=== PATIENT | male | born 1930 | race African-American/Black ===

== ENCOUNTER 2018-12-15 17:50 | Inpatient (IN) ==
[2018-12-15] MEDS ORDERED: VANCOMYCIN 1 GM/NS 1 GM/250 ML IVPB IV ONE (18:15)
--- NOTE | 2018-12-15 18:32 | Diag Imaging Result Doc PS360 ---
EXAM: CHEST-2 VIEWS HISTORY: sob TECHNIQUE: Chest two views COMPARISON: 12/15/2017 FINDINGS: The right hemidiaphragm is elevated similar to the prior exam. Heart is borderline mildly prominent. There is a left-sided pacemaker. There are infiltrates posteriorly in the lower lungs. No pulmonary edema. IMPRESSION: Basilar infiltrates Electronically signed by Quinton Muñoz 12/15/2018 6:30 PM
--- NOTE | 2018-12-15 18:36 | Diag Imaging Result Doc PS360 ---
EXAM: FOOT COMPLETE RIGHT HISTORY: diabetic foot ulcer susp osteomyelitis TECHNIQUE: Right foot, three views COMPARISON: None. FINDINGS: The bones are osteopenic. There are lucent areas with bone erosions in the mid and distal first metatarsal tarsal with cortical disruption. There is also lucency with cortical disruption involving the proximal phalanx of the great toe and the proximal portion of the distal phalanx of the great toe. IMPRESSION: Osteomyelitis involving the first metatarsal and great toe Electronically signed by Quinton Muñoz 12/15/2018 6:34 PM
[2018-12-15 19:44] LABS: BASO# 0.01 X1000 (0.0-0.2); BASO% 0.1 % (0.0-0.8); EOS# 0.19 X1000 (0.0-0.7); EOS% 1.5 % (0.0-10.0); HEMATOCRIT 27.3 % (42.0-52.0); HEMOGLOBIN 8.9 g/dL (14.0-18.0); IMM GRAN# 0.03 X1000 (0.0-0.04); IMM GRAN% 0.2 % (0.0-0.5); LYMPH# 1.05 X1000 (1.2-3.4); LYMPH% 8.1 % (20.5-51.1); MCH 30.1 PG (27-31); MCHC 32.6 g/dL (33-37); MCV 92.2 FL (81-99); MONO% 6.9 % (1.7-9.3); MPV 10.7 FL (7.4-10.4); NEUT# 10.79 X1000 (1.4-6.5); NEUT% 83.2 % (42.2-75.2); PLT 314 X1000 (130-400); RBC 2.96 XMIL (4.7-6.1); RDW 16.9 % (11.5-14.5); WBC 12.97 X1000 (4.8-10.8)
[2018-12-15 19:44] LABS: ALB/GLOB RATIO 0.7; C REACTIVE PROT QUANT 53.16 mg/L (0.00-5.00); CALCIUM 8.5 mg/dL (8.8-10.2); CREATININE 3.7 mg/dL (0.7-1.2); POTASSIUM 4.2 mmol/L (3.5-5.1); TOTAL BILIRUBIN 0.32 mg/dL (0.20-1.00); TOTAL PROTEIN 7.5 g/dL (6.3-8.3)
[2018-12-15] MEDS ORDERED: NORCO-7.5 PO PRN (20:01)
[2018-12-15] MEDS ORDERED: ZOFRAN IV PRN (20:01)
[2018-12-15] MEDS ORDERED: TYLENOL PO PRN (20:01)
[2018-12-15] MEDS ORDERED: ROCEPHIN 1 GM in NS 50 ML IV SCH (20:15)
[2018-12-15] MEDS ORDERED: ZITHROMAX 500 MG/NS 500 MG/250 ML IVPB IV SCH (20:15)
[2018-12-15] MEDS ORDERED: LEVAQUIN 750 MG in NS 150 ML IV SCH (22:00)
--- NOTE | 2018-12-15 22:47 | HISTORY AND PHYSICAL ---
PRIMARY CARE PROVIDER: Dr. Pittman. WIRE TESTER: Dr. Gamal South. ORTHOPEDIC SURGEON: Dr. Bowser. CHIEF COMPLAINT: Right foot wound bleeding. HISTORY OF PRESENT ILLNESS: Mr. Anna is an 88-year-old male who presents to the emergency room with a foul-smelling diabetic wound to the right foot. He has had the wound debrided recently by Dr. Bowser. His gauze was saturated with blood. The patient was sent here by Dr. Pittman related to a 101.1 fever for the past few days to rule out osteomyelitis. An x-ray of his right foot did indeed show osteomyelitis involving the first metatarsal and great toe. He will be admitted to the medical floor for further evaluation and treatment. PAST MEDICAL HISTORY: 1. End-stage renal disease with Saturday, Saturday, Saturday hemodialysis. 2. Coronary artery disease. 3. Hypertension. 4. Diabetes mellitus. 5. Hyperlipidemia. 6. Osteoarthritis. 7. Blindness. 8. Mild cognitive dysfunction. SURGICAL HISTORY: Pacemaker, right upper arm AV graft, cholecystectomy, debridement of right foot ulceration. SOCIAL HISTORY: No tobacco. Quit drinking over 30 years ago. Lives with daughter. Legally blind. Was able to ambulate with a cane prior to issues with right foot. FAMILY HISTORY: Mother had diabetes and breast cancer. ALLERGIES: No known drug allergies. HOME MEDICATIONS: A list of home medications has not been reconciled. Order was placed for nursing to reconcile home medications in the computer. REVIEW OF SYSTEMS: Fourteen point review of systems reviewed with the patient. Pertinent positives include right foot pain, difficulty ambulating, mild shortness of breath, dry cough with no sputum, fever, and chills. Also, diarrhea for the past two days. No nausea or vomiting. No hematemesis, hematochezia, or melena. All other systems reviewed and found to be negative. PHYSICAL EXAMINATION: VITAL SIGNS: Temperature 99, pulse 80, respirations 18, blood pressure 146/52, oxygen saturation 94% on room air. GENERAL: Mr. Anna is an 88-year-old male lying on the ER stretcher. Answers most questions appropriately. Hard of hearing and blind. He is in no acute distress. HEENT: Head is atraumatic, normocephalic. Pupils - left eye has a cloudy appearance and right eye is roughly 3 mm, nonreactive. The patient is able to visualize only shadows. Sclerae anicteric. Conjunctivae pale. Oral mucosa is dry. NECK: Supple. No JVD. No thyromegaly. Trachea is midline. No cervical lymphadenopathy. CARDIAC: S1, S2 appreciated. No murmurs, gallops, rubs. LUNGS: Clear to auscultation bilaterally. Mildly increased work of breathing. No rhonchi, wheezes, or rales. Symmetrical rise and fall with respirations. ABDOMEN: Soft, nondistended, nontender. Bowel sounds present all 4 quadrants, normoactive. No pulsatile mass. No organomegaly. EXTREMITIES: Right upper arm AV fistula. Positive thrill and bruit. Right foot with large foul- smelling ulceration, appears necrotic, involving the right MCP and great toe; brown bone is exposed. NEUROLOGICAL: Alert and oriented to person and place. Disoriented to time. Somewhat oriented to situation. Patient has bilateral blindness. He is hard of hearing. Otherwise, nonfocal examination. GENITOURINARY: No bladder distention. Otherwise, deferred. DIAGNOSTIC DATA: Right foot x-ray shows osteomyelitis of the first metatarsal and great toe. Chest x-ray shows basilar infiltrates. LABORATORY DATA: WBC 12.97, hemoglobin 8.9, hematocrit 27.3, platelet count 314. Sodium 135. Potassium 4.2. Chloride 96. Carbon dioxide 27. BUN 17. Creatinine 3.7. Glucose 219. ASSESSMENT AND PLAN: 1. Right foot osteomyelitis. Will treat with vancomycin and Rocephin. Dr. South will be consulted for dosing of vancomycin with hemodialysis. Blood cultures are pending. Will consult Dr. Bowser to evaluate ulceration. Consult Wound Care for help and recommendations on cleaning wound. [place] one to two 7.5 mg every six hours as needed for pain. 2. Bibasilar pneumonia. Will treat as health care acquired as patient is a dialysis patient. He will be given vancomycin, Levaquin, and Rocephin, renally dosed. Again, blood cultures are pending. Will obtain sputum cultures. DuoNeb treatments. 3. Diabetes mellitus. Finger stick blood sugar with sliding scale insulin. Diabetic diet. 4. End-stage renal disease with Saturday, Saturday, and Saturday hemodialysis. Consult Dr. South. 5. Coronary artery disease with hypertension and hyperlipidemia. Will continue home medications when available. Further recommendations per patient clinical course. Dictated by MEGHAN Cordero for Ezekiel Tolliver MD I have performed a face to face diagnostic evaluation. Labs/ Xrays- reviewed. Exam- chest- rhonchi, Ext- Rt foot wound. A/P Rt foot osteomyelitis, Pneumonia- Admit, would care, , check bld cultures, IV ABX. Dr. Tolliver cc: MEGHAN Cordero MD Dr. Ortega Reginald D. Gladish, MD Joseph R. Dupper, DPM MTDD
[2018-12-15] MEDS: DUONEB (A & A) INH SCH (22:55)
[2018-12-15] MEDS ORDERED: LEVAQUIN 750 MG in NS 150 ML IV ONE (23:00)
[2018-12-15] MEDS: DESYREL PO SCH (23:16)
[2018-12-15] MEDS: HUMALOG SUBQ SCH (23:24)
[2018-12-16 00:38] LABS: HEMATOCRIT 26.4 % (42.0-52.0); HEMOGLOBIN 8.3 g/dL (14.0-18.0)
--- NOTE | 2018-12-16 00:47 | PROVIDER DOCUMENTATION ---
This chart was entered by Sabrina Moseley Scribe, acting as scribe for Damien Govea MD. HPI-Rash/Wound/ReCheck - General Chief Complaint: Wound Recheck Stated Complaint: POST OP COMPLICATIONS Time Seen by Provider: 12/15/18 17:59 Source: patient Allergies/Adverse Reactions: Allergies Allergy/AdvReac Type Severity Reaction Status Date / Time No Known Allergies Allergy Verified 07/03/18 07:05 Home Medications: Home Medication List Medication Instructions Recorded Confirmed Last Taken Type Furosemide 40 mg PO DAILY 02/24/15 07/03/18 07/02/18 History Gabapentin 200 mg PO QHS 02/24/15 07/03/18 07/02/18 History Tamsulosin [Flomax] 0.4 mg PO QHS 02/20/17 07/03/18 07/02/18 History Trazodone [Desyrel] 0.5 tab PO QHS 12/14/17 07/03/18 07/02/18 History Amlodipine Besylate 10 mg PO DAILY 03/27/18 07/03/18 07/02/18 History Insulin Humulin 70/30 [Humulin 12 unit SUBQ HS 03/27/18 07/03/18 07/02/18 History 70/30] SIMVAstatin [Zocor] 20 mg PO QHS 03/27/18 07/03/18 07/02/18 History - History of Present Illness-Dermatology Nature of Presenting Problem: 88 yom presents to er w/co pt has hx of dm and has diabetic foul smelling necrotic would on rt foot. pt went to see dr. parson today and had wound debrided and there is visible, foul smelling tissue and zhou bone. pt was sent here by pcp, dr. pittman, b/c of 101.1 fever for past few days and poss osteomyelitis. pt arrived via ems and has visible blood and dressing around rt foot. Location: reports: feet (rt) Severity: reports: mild Onset/Duration: reports: unsure Timing: reports: still present Review of Systems - Adult - REVIEW OF SYSTEMS - ADULT Constitutional: reports: see HPI, fever (101.1 for few days). denies: chills, fatique, night sweats Eyes: reports: no symptoms reported Ears, Nose, Mouth & Throat: reports: no symptoms reported Cardiovascular: reports: no symptoms reported Respiratory: reports: no symptoms reported Gastrointestinal: reports: no symptoms reported Genitourinary: reports: no symptoms reported Musculoskeletal: reports: see HPI, other (pt has necrotic wound on rt foot.) Integumentary: reports: no symptoms reported Neurological: reports: no symptoms reported Psychiatric: reports: no symptoms reported Endocrine: reports: no symptoms reported Hematologic/Lymphatic: reports: no symptoms reported Allergic/Immunologic: reports: no symptoms reported All Other Systems: Reviewed and Negative Past History - Adult - PAST MEDICAL HISTORY-ADULT Review of Records: reports: Old Records Reviewed, Nursing Assessment Review, Medications Reviewed, Social history reviewed & non-contributory. Major Childhood Illnesses: reports: denies history Cardiovascular: reports: CAD, HTN, hyperlipidemia, pacemaker Respiratory: reports: denies history Gastrointestinal: reports: denies history Obstetrical/Gynecological: reports: denies history Genitourinary: reports: dialysis (Tue,Thur,Sat), ESRD, kidney disease Musculoskeletal: reports: denies history Neurological: reports: TIA Endocrine/Immune: reports: Diabetes Other Conditions: reports: eye problems/injury (blind bilateral eyes due to DM) - PRIOR SURGERIES/PROCEDURES Surgical/Procedure History: reports: pacemaker, indwelling device (dialysis graft) - IMMUNIZATION STATUS Childhood Immunizations: See Nurse Assessment Flu Vaccine: See Nurse Assessment - FAMILY HISTORY Family History: reviewed, not pertinent - SOCIAL HISTORY Smoking: non-smoker Substance Use: none/never Physical Exam-General - PHYSICAL EXAM-ADULT Initial Vital Signs Reviewed: Yes - CONSTITUTIONAL General Appearance: appears well, alert, no apparent distress - EYES Eyes: other (blind bilat eyes from dm). negative: PERRL/EOMI, photophobia, sclera injected, scleral icterus, subconjunctival hemorrhage - HEAD, EARS, NOSE, MOUTH & THROAT HENMT: normocephalic/atraumatic, moist mucous membranes, normal ENT inspection - NECK Neck: non-tender, full range of motion, supple, normal inspection - RESPIRATORY Respiratory: chest non-tender, crackles. negative: lungs clear, normal breath sounds, accessory muscle use - CARDIOVASCULAR Cardiovascular: normal peripheral pulses, regular rate, rhythm - GASTROINTESTINAL (ABDOMEN) Abdominal Exam: normal bowel sounds, non tender, soft - LYMPHATIC Lymphatic: no adenopathy - MUSCULOSKELETAL Back Exam: normal inspection, no CVA tenderness, no vertebral tenderness Extremity: other (rt foot necrotic wound foul smell. large infected diabetic foot ulcer involving MCP and great toe right foot with brown bone exsposed). negative: normal range of motion, non-tender, normal gait, normal inspection Peripheral Pulses: radial (R): 2+, radial (L): 2+ - SKIN Integumentary: normal color, normal turgor, warm/dry - NEUROLOGIC Neurologic: physician obstetrician II-XII nml as tested, grossly normal, no motor/sensory deficits - PSYCHIATRIC Psych/Mental Status: normal mood/affect, normal thought content, normal thought process, oriented x 3 Progress - PLAN OF CARE/RESULTS Progress/Plan/Lab Results: Vital Signs - 8 hr 12/15/18 18:13 Temperature 99.0 F Pulse Rate 80 Respiratory Rate 18 Blood Pressure 146/52 O2 Sat by Pulse Oximetry 94 L Laboratory Results - last 24 hr 12/15/18 12/15/18 12/15/18 18:56 18:56 19:15 WBC 12.97 H RBC 2.96 L Hgb 8.9 L Hct 27.3 L MCV 92.2 MCH 30.1 MCHC 32.6 L RDW Std Deviation 16.9 H Plt Count 314 MPV 10.7 H Immature Gran % (Auto) 0.2 Neut % (Auto) 83.2 H Lymph % (Auto) 8.1 L Pershing % (Auto) 6.9 Eos % (Auto) 1.5 Baso % (Auto) 0.1 Immature Gran # (Auto) 0.03 Neut # (Auto) 10.79 H Lymph # (Auto) 1.05 L Pershing # (Auto) 0.90 H Eos # (Auto) 0.19 Baso # (Auto) 0.01 Sodium 135 L Potassium 4.2 Chloride 96 L Carbon Dioxide 27 Anion Gap 12 BUN 17 Creatinine 3.7 H Estimated GFR/1.73 m2 19 BUN/Creatinine Ratio 5 Glucose 219 H Calculated Osmolality 278 Calcium 8.5 L Total Bilirubin 0.32 AST 28 ALT 17 Alkaline Phosphatase 68 C-Reactive Prot, Quant 53.16 H Total Protein 7.5 Albumin 3.0 L Globulin 4.5 Albumin/Globulin Ratio 0.7 Plasma Lactate 1.1 Orders Category Date Time Status Admit - [facility] Routine AdmDCTranf 12/15/18 20:01 Active Activity - Strict Bedrest ORDERED Care 12/15/18 20:01 Active Apply Mechanical Device [QM] ORDERED Care 12/15/18 20:01 Active FSBS/Accucheck Result Q4HR Care 12/15/18 20:01 Active Intake and Output-Strict ORDERED Care 12/15/18 20:01 Active Nursing- MD Consult Request ROUTINE Care 12/15/18 20:04 Active Update & Confirm Home Medicati ROUTINE Care 12/15/18 20:05 Active Vital Signs Order Q 8-HR ASSESS Care 12/15/18 20:01 Active Z-Document. for Tele Applied ORDERED Care 12/15/18 20:02 Active Physician/Provider Consults Routine Cons 12/16/18 08:00 Ordered Diabetic Diet Diet 12/15/18 20:03 Active CHEST-2 VIEWS [RAD] Stat Exams 12/15/18 18:03 Completed FOOT COMPLETE RIGHT [RAD] Stat Exams 12/15/18 18:08 Completed BASIC METABOLIC PANEL [CHEM] Routine Lab 12/16/18 06:00 Uncollected BLOOD CULTURE [BLDCUL] Stat Lab 12/15/18 19:15 Results C REACTIVE PROT QUANT [CHEM] Stat Lab 12/15/18 18:56 Completed CBC WITH DIFF [HEME] Routine Lab 12/16/18 06:00 Uncollected CBC WITH DIFF [HEME] Stat Lab 12/15/18 19:15 Completed COMPREHENSIVE METABOLIC PANEL [CHEM] Stat Lab 12/15/18 18:56 Completed LACTATE, PLASMA [CHEM] Stat Lab 12/15/18 18:56 Completed MAGNESIUM [CHEM] Routine Lab 12/16/18 06:00 Uncollected TSH Routine Lab 12/16/18 06:00 Uncollected Acetaminophen [Tylenol] Med 12/15/18 20:01 Active 650 mg PO Q6H PRN PRN Azithromycin 500 mg/Ns [Zithromax 500 mg/Ns] Med 12/15/18 20:15 Active 500 mg in 250 ml IV Q24H CefTRIAXONE [Rocephin] 1 gm Med 12/15/18 20:15 Active 0.9% Sodium Chloride Inj [Ns] 50 ml IV Q24H Hydrocodone/APAP 7.5 mg/325 mg [[place]-7.5] Med 12/15/18 20:01 Discontinued 1 - 2 each PO Q6H PRN PRN Hydrocodone/APAP 7.5 mg/325 mg [[place]-7.5] Med 12/15/18 20:08 Active 1 - 2 each PO Q6H PRN PRN Ondansetron [Zofran] Med 12/15/18 20:01 Active 4 mg IV Q4H PRN PRN Vancomycin 1 gm/Ns Med 12/15/18 18:15 Discontinued 1 gm in 250 ml IV NOW Telemetry [OM.EQ] Routine Oth 12/15/18 20:01 Active EKG [EKG] Routine Ther 12/16/18 08:00 Ordered EKG [EKG] Stat Ther 12/15/18 18:03 Ordered Physical Therapy Eval/Treatment [OM.PT] Routine Ther 12/15/18 20:01 Active Transfer/Admit Order [TRANSFER] Routine Transfer 12/15/18 20:07 Ordered A/P: Osteomyelitis involving the first metatarsal and great toe, started vanco mycin and will admit. Informed Dr Pereira od admission. Result Diagrams: 12/15/18 19:15 12/15/18 18:56 - XRAY 1 XRAY: Right XRAY Study: Foot (EXAM: FOOT COMPLETE RIGHT HISTORY: diabetic foot ulcer susp osteomyelitis TECHNIQUE: Right foot, three views COMPARISON: None. FINDINGS: The bones are osteopenic. There are lucent areas with bone erosions in the mid and distal first metatarsal tarsal with cortical disruption. There is also lucency with cortical disruption involving the proximal phalanx of the great toe and the proximal portion of the distal phalanx of the great toe. IMPRESSION: Osteomyelitis involving the first metatarsal and great toe Electronically signed by Quinton Muñoz 12/15/2018 6:34 PM) Impression: Abnormal Comparison with other Films: no prior study 2 XRAY: Bilateral XRAY Study: Chest ( EXAM: CHEST-2 VIEWS HISTORY: sob TECHNIQUE: Chest two views COMPARISON: 12/15/2017 FINDINGS: The right hemidiaphragm is elevated similar to the prior exam. Heart is borderline mildly prominent. There is a left-sided pacemaker. There are infiltrates posteriorly in the lower lungs. No pulmonary edema. IMPRESSION: Basilar infiltrates Electronically signed by Quinton Muñoz 12/15/2018 6:30 PM) Impression: Abnormal Comparison with other Films: changes noted - CONSULTS/PCP/HOSPITALIST Notification #1 *Consult/PCP/Hospitalist*: Dr Pereira Time Discussed: 19:01 Consult Disposition: other (informed Doctor of admission) #2 Consult: Dr Tolliver Time Discussed: 19:30 Consult Disposition: Admit Departure - Departure Date of Disposition Decision: 12/15/18 Time of Disposition Decision: 19:43 DIAGNOSIS: Osteomyelitis Disposition: ADMITTED INPATIENT 09 Certified Medical Emergency: Emergent Condition: Stable Additional Freetext Instructions: We have examined and treated you today on an emergency basis only. This was not a substitute for, or an effort to provide, complete medical care. In most cases, you must let your doctor check you again. Tell your doctor about any new or lasting problems. We cannot recognize and treat all injuries or illnesses in one Emergency Department visit. If you had special tests, such as X-rays or CT scans, will be reviewed by radiologist and will call you if there are any new suggestions Follow up with primary care provider in 1 to 2 days if no improvement. If you do not have a primary care provider, you need to choose one as soon as possible. Take medicines as prescribed. Monitor for any side effects or adverse events from medications. If any side effect, adverse event or rash develops, or if you suspect any other adverse reaction to the medication, then discontinue the medication immediately and contact clinic /PCP or go to the nearest ER. Narcotic meds / sedative meds instruction - patent advised not to drive, operate any machinery or go into water after taking meds as it may impair mental ability to react to the situation in an appropriate manner. Continue other current medicines. Follow up with PCP within 24-48 hours, or sooner if symptoms worsen or fail to improve. Patient / guardian verbalizes understanding of treatment plan, medication, and side effects and agrees with treatment plan. Patient leaves ER in stable condition and ambulatory state. Retu rn to ER as needed. Discharge instructions reviewed verbally and given to patient in written form. Follow up with primary care provider. Referrals and Follow-Ups: Gordo Pittman MD [Primary Care Provider] - - Critical Care Note This patient required my direct & personal management of CC.: No Attestation - Physician/ DENICE Attestation Patient care was provided by Advanced Practice Provider:: No The physician spent face to face time with patient:: Yes Advanced Practice Provider documentation review:: Supervising physician onsite and consulted in the evaluation and care of this patient. The physician did have a face to face encounter with the patient. This chart was documented by the indicated scribe, (Sabrina Moseley, Judd) and accurately reflects the services I performed and decisions made by , Damien Govea MD, as attested by the provider's signature.
[2018-12-16] MEDS: HUMALOG SUBQ SCH ×4 (02:15→23:15)
[2018-12-16] MEDS: DUONEB (A & A) INH SCH ×4 (03:51→23:35)
[2018-12-16] MEDS ORDERED: VANCOMYCIN 1 GM/NS 1 GM/250 ML IVPB IV SCH (06:00)
[2018-12-16 07:13] LABS: BASO# 0.02 X1000 (0.0-0.2); BASO% 0.2 % (0.0-0.8); EOS# 0.13 X1000 (0.0-0.7); EOS% 1.1 % (0.0-10.0); HEMATOCRIT 24.6 % (42.0-52.0); HEMOGLOBIN 7.7 g/dL (14.0-18.0); IMM GRAN# 0.02 X1000 (0.0-0.04); IMM GRAN% 0.2 % (0.0-0.5); LYMPH# 1.27 X1000 (1.2-3.4); LYMPH% 10.8 % (20.5-51.1); MCH 29.1 PG (27-31); MCHC 31.3 g/dL (33-37); MCV 92.8 FL (81-99); MONO# 0.65 X1000 (0.11-0.59); MONO% 5.5 % (1.7-9.3); MPV 9.9 FL (7.4-10.4); NEUT# 9.69 X1000 (1.4-6.5); NEUT% 82.2 % (42.2-75.2); PLT 284 X1000 (130-400); RBC 2.65 XMIL (4.7-6.1); RDW 16.5 % (11.5-14.5); WBC 11.78 X1000 (4.8-10.8)
--- NOTE | 2018-12-16 07:23 | EKG Report ---
Test Performed on : 12/16/2018 07:13:10 AM Test Reason : chest pain Blood Pressure : / mmHG Vent. Rate : 075 BPM Atrial Rate : 075 BPM P-R Int : 224 ms QRS Dur : 188 ms QT Int : 458 ms P-R-T Axes : 062 -40 122 degrees QTc Int : 511 ms Atrial-sensed ventricular-paced rhythm with prolonged AV conduction Abnormal ECG When compared with ECG of 18-DEC-2017 06:50, Vent. rate has increased BY 6 BPM Unconfirmed Result
[2018-12-16 07:26] LABS: CALCIUM 8.8 mg/dL (8.8-10.2); CREATININE 4.2 mg/dL (0.7-1.2); MAGNESIUM 1.8 mg/dL (1.5-2.7); POTASSIUM 3.8 mmol/L (3.5-5.1)
--- NOTE | 2018-12-16 10:02 | NEPHROLOGY CONSULTATION ---
DATE: 12/16/2018 REASON FOR ADMISSION: Right foot wound that is bleeding. REASON FOR CONSULTATION: End-stage renal disease with assistance with medical management. HISTORY OF PRESENT ILLNESS: Mr. Anna is an 88-year-old male who is known to our outpatient services for hemodialysis on Saturday, Saturday, Saturday at the [facility]. Mr. Anna had recently seen Dr. Bowser earlier in the day for evaluation of his nonhealing right foot wound. It had been debrided recently. Family had made an appointment for him to follow up with his primary care, Dr. Pittman. It was found that he had 101.1 degree fever in the past several days. He was sent to [facility] with a foul smelling diabetic wound to the right foot to rule out osteomyelitis. X-ray of the right foot showed osteomyelitis involving the 1st metatarsal and great toe. He was subsequently admitted to the floor for further monitoring and evaluation by the surgery care team. The patient denies any chest pain. No increased work of breathing. No nausea, vomiting. No diarrhea. No fever or chills that he is aware of, though it is documented a fever 101 degrees by his primary care. He denies any recent falls or any foot injuries that he is aware of. The patient is legally blind, cared for by his son and daughter. PAST MEDICAL HISTORY: End-stage renal disease with hemodialysis Saturday, Saturday, Saturday. Coronary artery disease, hypertension, diabetes mellitus type 2, hyperlipidemia, osteoarthritis, mild cognitive dysfunction and blindness. PAST SURGICAL HISTORY: He has had a pacemaker, right upper arm AV fistula, cholecystectomy, debridement of right foot with ulceration. SOCIAL HISTORY: He lives with his daughter. His son assists with his care. No tobacco. Quit drinking over 30 years ago. The patient is legally blind. He is unable to ambulate well without cane. Otherwise, he has been using a wheelchair but is able to transfer. FAMILY HISTORY: Mother had diabetes and breast cancer. CURRENT ALLERGIES: Listed as no known drug allergies. HOME MEDICATIONS: Have yet to be reconciled. OBJECTIVE: RECENT VITAL SIGNS: Temperature 98.8 degrees, blood pressure 137/49, heart rate 75, respirations 14. He is on room air. Last recorded saturation is 95%. He has had 0 recorded in or out. He did have dialysis yesterday before coming in through the emergency room. LABORATORY DATA: Sodium is 137, potassium 3.8, chloride 99, CO2 25, BUN 22, creatinine 4.2, glucose is 127. His anion gap is 13, calcium is 8.8, magnesium 1.8. White count 11.78, hemoglobin 7.7, hematocrit 24.6, with a platelet count of 284,000. The patient had a TSH of 1.85. PHYSICAL EXAMINATION: General: This is an 88-year-old male resting quietly in bed. He has his glasses on. He appears chronically ill. No acute distress. Skin: Warm and dry. HEENT: Normocephalic, atraumatic. Conjunctiva was not inspected. Glasses remain on. Patient is legally blind. Neck: Supple. Trachea midline. No JVD. Cardiovascular: Regular rate and rhythm. He has a soft systolic murmur. Lungs: Clear to auscultation bilaterally. Equal excursion on room air. Abdomen: Soft, large, round, nontender. Positive bowel sounds. Genitourinary: Not inspected. Minimal void with dialysis assist. Extremities: Patient has socks currently on with a dressing to his right foot. This is dry and intact. No shadow drainage present. AV fistula to his right upper arm with good thrill. Neurological: He is alert and oriented to person and to place. ASSESSMENT AND PLAN: 1. Chronic kidney disease stage 5D. Patient is due for his routine dialysis treatment in the a.m. He did receive his treatment yesterday prior to coming into the hospital. 2. Electrolytes and acid-base balance. These are acceptable. 3. Anemia. This is low. Hemoglobin is 7.7. We will continue to monitor. We will defer to the primary care team for monitoring when indicated for blood transfusion during this hospitalization. 4. Osteomyelitis to the right foot. This is to his right large metatarsal. He has a dressing that is dry and intact. The patient is currently on Levaquin and Ceftin. I would like to thank you for allowing us to follow with this patient. Dictated by MEGHAN Araujo for Gamal South MD Face to face encounter, data reviewed, discussed with Marla Yates on 12/16/18. I agree with the above assessment and plan of care. cc: Ann-Marie MEGHAN White MD [facility]
--- NOTE | 2018-12-16 12:49 | CONSULTATION ---
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 We saw him in the [facility] yesterday and did a debridement, and apparently when he went home, he got up to go the bathroom, and it started bleeding a fair amount, so they brought him to the emergency room. Emergency room doctors admitted him for osteomyelitis. OBJECTIVE: I am not able to log into the computer, so I am not able to get any of his labs or any information, but the foot dressing is intact. There is no active bleeding at this point. The foot is consistent with what we saw yesterday, a large deficit on the medial aspect of the 1st metatarsophalangeal joint with an exposed 1st metatarsal head and base of the proximal phalanx. You could see directly into the 1st metatarsophalangeal joint. There is a fair amount of nonviable grayish tissue on the periphery of the wounds. There is no obvious pus or any significant erythema or swelling or warmth or evidence of deep abscess. ASSESSMENT AND PLAN: Nonhealing wound with first metatarsophalangeal (MPJ), right, with underlying osteomyelitis that needs and has been needing an amputation and I D for several weeks. The problem we have been running into his daughter has a power of criminal defense attorney, and she continues to tell me every time I talk to her that she is going to get her brothers to consider what he needs to do and possibly get a second opinion before they want to proceed with any kind of procedure. I told her today in our phone conversation that it is time to make a decision by the end today. They need to decide what they want to allow us to do and who they want to do it. It sounds like perhaps maybe they want either a second opinion or a different surgeon to do his surgery, which I told him and her and the nurses is fine with me. It does not matter who does it, but someone needs to intervene surgically at this point because the foot is never going to heal in the condition that it is in, and she has been seemingly understanding this for weeks, but still as yet to render a decision on how we could proceed at this point, so I talked all of the nurses taking care of him, and we are going to try to expedite the process of getting a decision made by the end of the day. cc: Deacon Bowser DPM
--- NOTE | 2018-12-16 16:59 | PROGRESS NOTE ---
DATE: 12/16/2018 SUBJECTIVE: The patient is resting comfortably in bed. No acute events noted overnight. OBJECTIVE: Vital Signs: Temperature 97.6 degrees, blood pressure 143/45, heart rate 70, respirations 18, O2 saturation 95% on room air. General: This is a chronically ill-appearing elderly male lying in bed in no acute distress. Head: Normocephalic, atraumatic. Heart: S1, S2 normal. Regular rate and rhythm. Lungs: Equal air entry bilaterally. No wheezing. No rales. No rhonchi. Abdomen: Positive bowel sounds. Soft, nontender, nondistended. Extremities: No edema. The right foot has serosanguineous drainage and there is a dressing in place on the foot. LABS: White blood cell count 11, hemoglobin 7.7, hematocrit 24, platelets 284,000. BUN 22, creatinine 4.2, glucose 127, magnesium 1.8, calcium 8.8. ASSESSMENT AND PLAN: 1. Right great toe osteomyelitis. The patient is currently receiving intravenous antibiotics. Will consult ID as well as Orthopedic Surgery for further treatment recommendations. 2. Bibasilar infiltrates. We will check a procalcitonin level. In the meantime, continue with antibiotic therapy. 3. End-stage renal disease. Management as per the dice maker. 4. Anemia. Will monitor the hemoglobin and hematocrit closely. We will order iron studies. 5. Leukocytosis. Improved. Continue with antibiotic therapy. 6. Diabetes mellitus type 2. Continue with sliding scale insulin. 7. Deep vein thrombosis prophylaxis. Will start the patient on heparin. cc: Bonnie Bowens MD MTDD
[2018-12-16] MEDS ORDERED: MAXIPIME 1 GM in NS 50 ML IV SCH (17:15)
[2018-12-16] MEDS ORDERED: CUBICIN 500 MG in NS 100 ML IV SCH (17:30)
[2018-12-16] MEDS: ZYVOX PO SCH (18:20)
--- NOTE | 2018-12-16 18:27 | CONSULTATION ---
DATE OF CONSULTATION: 12/16/2018 CHIEF COMPLAINT: Right great toe wound. HISTORY OF PRESENT ILLNESS: Mr. Anna is an 88-year-old male who was admitted to the hospital for suspected osteomyelitis first metatarsal. He is also on dialysis and is diabetic. He has been seeing Dr. Bowser for wound care of this first metatarsal wound and unfortunately, it sounds like things have just not healed well and his wound has continued to progress. He is having pain mainly just at that first MTP joint. It sounds like the wound has gotten worse over the past few weeks. PAST MEDICAL HISTORY: End-stage renal disease, he is on dialysis Mondays, Wednesdays, Fridays, coronary artery disease, hypertension, diabetes, and blindness. PAST SURGICAL HISTORY: He has a pacemaker, right upper extremity AV graft, cholecystectomy, several debridements of his foot but I think all of those were in the office setting. SOCIAL HISTORY: He denies any tobacco use. FAMILY HISTORY: Positive for diabetes. ALLERGIES: No known drug allergies. HOME MEDICATIONS: Per the medical record. REVIEW OF SYSTEMS: Positive for this right diabetic foot ulcer. PHYSICAL EXAMINATION: General: Slightly cachectic-appearing, elderly male. He is in no acute distress. Head and Neck: Normocephalic, atraumatic. Respirations: Nonlabored breathing. Cardiovascular: Regular pulse. Abdomen: Nondistended. Extremities: Right lower extremity exam: He has an open wound over the first metatarsal head medially. It is draining. It looks like more serous drainage and it does appear that bone was exposed. He does have some swelling throughout that first ray. There is not a lot of surrounding erythema that I can tell. He has decreased sensation throughout the toes. RADIOGRAPHS: Several views of the right foot from the hospital shows what looks like a lot of erosive changes to the distal phalanx, proximal phalanx, and the first metatarsal of that great toe. ASSESSMENT: Suspected right great toe osteomyelitis. PLAN: I am going to order a CT scan Mr. Anna to better evaluate the bone. If it does look like it is osteomyelitic and very erosive, then we will probably recommend a first ray amputation. CT will also help show the proximal extent of it. We may have to take the entire first metatarsal out. So, I will order the CT scan. I will see him first thing in the morning and we will make a final decision on everything at that time. cc: Carlos Maradiaga MD
--- NOTE | 2018-12-16 19:14 | INFECTIOUS DISEASE CONSULT REP ---
DATE: 12/16/2018 CONCLUSION: The patient has osteomyelitis of the right foot. He also has a positive blood culture for gram-positive cocci, and the infection may have arisen from the patient's foot. In addition to that, on chest x-ray, the patient has bibasilar infiltrates which could be due to pneumonia, and that could be the source of the patient's bacteremia as well. RECOMMENDATIONS: I have ordered for the patient cefepime 1 g IV after each dialysis, daptomycin 500 mg IV after each dialysis, and Zyvox 600 mg p.o. every 12 hours. The cefepime is present in case a culture from the patient's foot should show a mixed claire that requires coverage for gram- negative richmond organisms. As regarding the use of linezolid and daptomycin in this patient, he is elderly and somewhat unstable when he walks, and because of that, I am hesitant to use vancomycin. Therefore, I have put the patient on daptomycin which should eradicate the bacteremia. However, daptomycin does not get a good concentration in the lungs, and therefore, I have started the patient on Zyvox to provide coverage for pneumonia due to a gram-positive coccus. I am going to discontinue the patient's Zocor because it can interact with daptomycin and increase the risk of muscle toxicity. DISCUSSION: The patient was unable provide a history. The information I obtained was from a family member. The patient had infection in his right foot for approximately 2 months. He has had debridements performed of the foot. He has been admitted now to the hospital for further treatment. The patient's CBC shows a white count of 11,780, hemoglobin 7.7, and platelet count 284,000. Creatinine is 4.2. GFR is 16. Chest x-ray shows bibasilar infiltrates. X-ray of the right foot shows osteomyelitis of the 1st metatarsal and great toe. Yesterday, the patient received injections of vancomycin, Rocephin, and Levaquin. PAST MEDICAL HISTORY/REVIEW OF SYSTEMS: Eyes and ears: The patient is blind. He can hear. Sometimes he is ataxic. Neck: No pain. Respiratory: No cough or shortness of breath. Cardiac: No chest pain. Gastrointestinal: No diarrhea or vomiting. Genitourinary: The patient only passes a minimal amount of urine. He is on dialysis. Neurologic: The patient is blind, and he sometimes is ataxic. He has a diagnosis of dementia as well. PREVIOUS HOSPITALIZATIONS AND OPERATIONS: The patient has had a stroke. He has had creation of a right upper extremity AV fistula. He has a left-sided permanent pacemaker in place. MEDICAL DISEASES: Positive for diabetes mellitus, hypertension, stroke, cancer of the kidney, and dementia, also hyperlipidemia. The patient also has end-stage renal disease and is on dialysis. INFECTIOUS DISEASE: History positive for influenza and UTI. FAMILY HISTORY: Positive for diabetes mellitus and hypertension. SOCIAL HISTORY: [place] with [place] son and daughter. He is a . He does not have any pets at home. ALLERGIES: He has no known drug allergies. HABITS: He does not smoke cigarettes, drink alcoholic beverages, or abuse drugs. MEDICATIONS: His home medications include the following: Amlodipine, furosemide, gabapentin, insulin, simvastatin, Flomax, and Desyrel. PHYSICAL EXAMINATION: Vital Signs: Temperature is 97.6 degrees, pulse 70, respirations 20, blood pressure 143/45. The patient is 5 feet 11 inches tall. His first weight listed on the computer is 126 pounds. However, I asked him to be weighed again on the bed, and this time, he weighed 135 pounds. Head, eyes, ears, nose, and throat: The patient is edentulous. He is blind. He appears to be able to hear my spoken word. Neck: No pain with movement. Extremities: The patient has an AV fistula in the left arm. There is no drainage coming from the arm. Lungs: Clear to auscultation. Cardiovascular: Heart rate is irregular. Abdomen: Soft and nontender. Extremities: The patient has an AV fistula in the left arm that is functioning well. The patient has an open wound on the right foot, and I can palpate bone at that time. There is ulcerated area through which I palpated bone. The patient's great toe is swollen. Neurologic: The patient is somewhat lethargic. He did answer questions, and he did move his extremities to request. Integument: No rash noted. Thank you for the consult. cc: Rao Escobar MD
[2018-12-16] MEDS: DESYREL PO SCH (20:25)
[2018-12-16] MEDS: NORCO-7.5 PO PRN (20:26)
[2018-12-16] MEDS: HEPARIN SUBQ SCH (20:28)
--- NOTE | 2018-12-16 20:56 | Diag Imaging Result Doc PS360 ---
EXAM: CT EXT LOWER RIGHT W/O CON INDICATION: right great toe osteomyelitis TECHNIQUE: COMPARISON: None. FINDINGS: There is a large ulceration at the medial aspect of the great toe base. There are extensive bony erosive changes involving the first metatarsal head, the proximal phalanx, and the distal phalanx of the great toe consistent with osteomyelitis. There is also a small erosion involving the adjacent second metatarsal head that is suspicious for osteomyelitis. There are intertarsal degenerative changes and degenerative changes at the talofibular joint with several small degenerative subcortical defects. No fracture or dislocation is appreciated. IMPRESSION: Osteomyelitis involving the phalanges of the great toe as well as the head of the first metatarsal and findings suspicious for osteomyelitis involving the head of the second metatarsal. Electronically signed by Dionicio Moseley 12/16/2018 8:53 PM
[2018-12-17] MEDS: DUONEB (A & A) INH SCH ×4 (03:10→22:21)
[2018-12-17] MEDS: ZYVOX PO SCH ×2 (05:47→20:36)
[2018-12-17] MEDS ORDERED: NS 2,000 ML MISC PRN (05:58)
[2018-12-17] MEDS ORDERED: TIGHT: 0.2 ML/HR FOR DIALYSIS MISC PRN (05:58)
[2018-12-17] MEDS ORDERED: HEPARIN IV PRN (05:58)
[2018-12-17] MEDS: HUMALOG SUBQ SCH ×4 (05:59→21:46)
--- NOTE | 2018-12-17 07:20 | Diag Imaging Result Doc PS360 ---
EXAM: CHEST-PORTABLE INDICATION: pneumonia TECHNIQUE: One view COMPARISON: 12/15/2018 FINDINGS: Mild infiltrate at the right lung base has probably improved. Atelectasis and/or infiltrate at the left lung base is approximately stable. No new consolidation is identified. Central vasculature is mildly prominent suggesting mild pulmonary venous congestion that is essentially stable. Cardiac silhouette is stable. IMPRESSION: Slight decrease in the very mild infiltrate at the right lung base. Essentially stable chest, otherwise. Electronically signed by Dionicio Moseley 12/17/2018 7:18 AM
[2018-12-17 07:54] LABS: RETIC% 1.1 % (0.8-2.1); RETIC-HE 31.4 PG (28.2-36.6)
[2018-12-17 07:57] LABS: BASO# 0.02 X1000 (0.0-0.2); BASO% 0.2 % (0.0-0.8); EOS# 0.31 X1000 (0.0-0.7); EOS% 2.9 % (0.0-10.0); HEMATOCRIT 22.7 % (42.0-52.0); HEMOGLOBIN 7.3 g/dL (14.0-18.0); IMM GRAN# 0.03 X1000 (0.0-0.04); IMM GRAN% 0.3 % (0.0-0.5); LYMPH# 1.22 X1000 (1.2-3.4); LYMPH% 11.4 % (20.5-51.1); MCH 29.3 PG (27-31); MCHC 32.2 g/dL (33-37); MCV 91.2 FL (81-99); MONO# 0.69 X1000 (0.11-0.59); MONO% 6.5 % (1.7-9.3); MPV 10.5 FL (7.4-10.4); NEUT% 78.7 % (42.2-75.2); PLT 288 X1000 (130-400); RBC 2.49 XMIL (4.7-6.1); RDW 16.3 % (11.5-14.5); WBC 10.67 X1000 (4.8-10.8)
--- NOTE | 2018-12-17 08:06 | PROGRESS NOTE ---
DATE: 12/17/2018 SUBJECTIVE: Mr. Anna is lying in bed this morning. Overall, feeling okay. OBJECTIVE: Right lower extremity exam: Dressing is clean, dry, and intact. There was not really any erythema coming up the foot. IMAGING: CT scan was reviewed, which shows air in the first metatarsal head, exposed bone and a lot of destruction of the proximal and distal phalanges of the great toe. ASSESSMENT: Right osteomyelitis of the first metatarsal, the great toe proximal phalanx and the great toe distal phalanx. PLAN: I discussed with Mr. Anna this morning about the need for surgical intervention. I would recommend amputation of that great toe. We may be able to keep the base of the toe depending on when we get in there and we cut the bone and really evaluate it. It looks like more of the infection is distal in the first metatarsal. I would plan on taking that toe off and closing the skin primarily to try to get a good closure so that we eliminate the wound altogether. I went over with him the need for this. I will also talk with his daughter today, which I got his permission to do that about his care. We will plan on doing this tomorrow, so he will be n.p.o. after midnight tonight. He will have dialysis today, so he should be good from an electrolyte standpoint for surgical intervention tomorrow. cc: Carlos Maradiaga MD
[2018-12-17 08:08] LABS: ALBUMIN 2.7 g/dL (3.5-5.0); PHOSPHORUS 3.3 mg/dL (2.7-4.5); POTASSIUM 3.6 mmol/L (3.5-5.1)
[2018-12-17 08:09] LABS: CREATININE 5.3 mg/dL (0.7-1.2)
--- NOTE | 2018-12-17 08:22 | NEPHROLOGY PROGRESS NOTE ---
DATE: 12/17/2018 SUBJECTIVE: No shortness of breath. He states he has been eating. No nausea or vomiting. OBJECTIVE: Vital signs: Blood pressure 150/46, heart rate 71, respirations 16, afebrile. Generally: No acute distress. Skin: Warm and dry. Conjunctivae are pink. Neck: Neck veins are not appreciated. Cardiovascular: Heart is regular. No gallops. Respiratory: Lungs are equal. No crackles. Abdomen: Soft, nontender. Bowel sounds present. Extremities: Have no edema, clubbing, or cyanosis. Right foot dressed. IMPRESSION AND PLAN: Chronic kidney disease 5D. No new data. Today is his routine dialysis today. We will plan to dialyze using a 3 potassium bath and we will use his outpatient target weight. His hemoglobin is 7.3 today so we will give him a single unit of packed red blood cells during dialysis. cc: Gamal South MD
[2018-12-17 08:38] LABS: IRON SATURATION 18 %; TIBC 105 ug/dL; TOTAL IRON 19 ug/dL (53-167); UNBOUND IRON 86 ug/dL (112-346)
[2018-12-17] MEDS: HEPARIN SUBQ SCH (10:05)
--- NOTE | 2018-12-17 11:11 | PROGRESS NOTE ---
DATE: 12/17/2018 SUBJECTIVE: The patient is resting comfortably in bed. He has no complaints at this time. OBJECTIVE: Vital Signs: Temperature 98 degrees, blood pressure 150/46, heart rate 71, respirations 16, O2 saturation 94% on room air. General: This is an elderly male lying in bed in no acute distress. Heart: S1, S2 normal. Regular rate and rhythm. Lungs: Coarse breath sounds bilaterally. Abdomen: Positive bowel sounds. Soft, nontender, nondistended. Extremities: No edema noted. The patient's right foot is wrapped in a clean, dry dressing. LABORATORIES: White blood cell count 10, hemoglobin 7.3, hematocrit 22, platelets 288,000. Sodium 137, potassium 3.6, chloride 101, CO2 25, BUN 30, creatinine 5.3, glucose 120. IMAGING: Chest x-ray reveals some mild infiltrate in the right lung base. ASSESSMENT AND PLAN: 1. Right great toe osteomyelitis. The patient is scheduled to undergo surgery tomorrow. Continue with antibiotic therapy as directed by Dr. Escobar. 2. Pneumonia. Continue with antibiotic therapy. 3. End stage renal disease. The patient is due for dialysis today. 4. Diabetes mellitus type 2, poorly controlled. Continue on Humalog, sliding scale. 5. Anemia. The patient is scheduled to receive a blood transfusion today during dialysis. cc: Bonnie Bowens MD MTDD
[2018-12-17] MEDS ORDERED: MAXIPIME 1 GM in NS 50 ML IV ONE (16:00)
[2018-12-17] MEDS ORDERED: CUBICIN 500 MG in NS 100 ML IV ONE (17:00)
[2018-12-17] MEDS: NORCO-7.5 PO PRN (17:45)
[2018-12-17] MEDS: DESYREL PO SCH (20:33)
[2018-12-17] MEDS ORDERED: LEVAQUIN 500 MG in NS 100 ML IV SCH (23:00)
[2018-12-18] MEDS: DUONEB (A & A) INH SCH ×4 (03:03→21:50)
[2018-12-18] MEDS: HUMALOG SUBQ SCH ×4 (06:14→22:55)
[2018-12-18 07:34] LABS: BASO# 0.02 X1000 (0.0-0.2); BASO% 0.2 % (0.0-0.8); EOS# 0.15 X1000 (0.0-0.7); EOS% 1.3 % (0.0-10.0); HEMATOCRIT 27.8 % (42.0-52.0); HEMOGLOBIN 8.7 g/dL (14.0-18.0); IMM GRAN# 0.02 X1000 (0.0-0.04); IMM GRAN% 0.2 % (0.0-0.5); LYMPH# 1.09 X1000 (1.2-3.4); LYMPH% 9.3 % (20.5-51.1); MCHC 31.3 g/dL (33-37); MCV 92.7 FL (81-99); MONO# 0.58 X1000 (0.11-0.59); MPV 9.7 FL (7.4-10.4); NEUT# 9.83 X1000 (1.4-6.5); PLT 319 X1000 (130-400); RDW 16.1 % (11.5-14.5); WBC 11.69 X1000 (4.8-10.8)
[2018-12-18 07:42] LABS: ALBUMIN 2.7 g/dL (3.5-5.0); CALCIUM 8.4 mg/dL (8.8-10.2); CREATININE 3.7 mg/dL (0.7-1.2); PHOSPHORUS 2.7 mg/dL (2.7-4.5); POTASSIUM 3.4 mmol/L (3.5-5.1)
--- NOTE | 2018-12-18 09:17 | PROGRESS NOTE ---
DATE: 12/18/2018 SUBJECTIVE DATA: Mr. Anna is lying in bed. His daughter is at the bedside. OBJECTIVE DATA: Right lower extremity exam, the dressing is clean, dry, and intact. There is not a lot of erythema to the foot. ASSESSMENT: Right osteomyelitis 1st metatarsal, great toe proximal phalanx and the great toe distal phalanx. PLAN: We are planning for a right great toe amputation today. The patient's daughter is at the bedside. Dr. Maradiaga has discussed risks and benefits with both the patient and the patient's daughter. They both understand and are aware. They wished to proceed with surgery. He is on the schedule for today. We will plan on doing him as soon as possible. He has been NPO since midnight. He also had dialysis yesterday, so he should hopefully be ready for surgical intervention today. Dictated by MEGHAN Chin for Carlos Maradiaga MD cc: MEGHNA Chin MD
[2018-12-18] MEDS: ZYVOX PO SCH ×2 (09:34→20:51)
--- NOTE | 2018-12-18 13:59 | PROGRESS NOTE ---
DATE: 12/18/2018 SUBJECTIVE: The patient is resting comfortably in bed. He is scheduled to undergo surgery today. OBJECTIVE: Vital Signs: Temperature 98 degrees, blood pressure 150/43, heart rate 81, respirations 20, O2 saturation 99% on room air. General: This is a chronically ill-appearing elderly male, lying comfortably in bed, in no acute distress. Heart: S1, S2 normal. Regular rate and rhythm. Lungs: Clear to auscultation bilaterally. Abdomen: Positive bowel sounds. Soft, nontender, nondistended. Extremities: The right foot is wrapped in a clean, dry dressing. Neurologic: The patient is alert and oriented x3. LABORATORY DATA: White blood cell count 11, hemoglobin 8.7, hematocrit 27, platelets 319,000. Sodium 136, potassium 3.4, chloride 95, CO2 24, BUN 16, creatinine 3.7, glucose 104, albumin 2.7. ASSESSMENT AND PLAN: 1. Right great toe osteomyelitis. The patient is scheduled to undergo surgery today. Continue with antibiotic therapy. 2. Pneumonia. Continue with antibiotic therapy and bronchodilator therapy. 3. Diabetes mellitus type 2. Continue with Humalog and sliding scale insulin. 4. End-stage renal disease. Management as per the pit worker power shovel. 5. Anemia. Monitor the hemoglobin and hematocrit closely. cc: Bonnie Bowens MD MTDD
[2018-12-18] MEDS ORDERED: DIPRIVAN 1% ONE (16:59)
[2018-12-18] MEDS ORDERED: XYLOCAINE-MPF 2% ONE (16:59)
[2018-12-18] MEDS ORDERED: KEFZOL 1 GM/D5W 1 GM/50 ML IVPB IV SCH (17:00)
--- NOTE | 2018-12-18 17:24 | NEPHROLOGY PROGRESS NOTE ---
DATE: 12/18/2018 TIME SEEN: 08 SUBJECTIVE: Mr. Anna is resting quietly in bed. His family is all at his bedside, his daughter and his son and his sitter. They are waiting for Dr. Maradiaga to discuss his right foot wound. He denies any discomfort. OBJECTIVE: Vital Signs: Temperature 98.9 degrees, blood pressure 159/42, heart rate 90, respirations are 12. He is on room air. Last recorded saturation 96%. He has had 350 in, 3 L removed on dialysis yesterday. Labs: Sodium 136, potassium 3.4, chloride 95, CO2 24, BUN 16, creatinine 3.7, glucose 104. His anion gap is 17, calcium 8.4, phosphorus 2.9, albumin 2.7. White count 11.69, hemoglobin 8.7, hematocrit 27.8, platelet count 319,000. The patient's right foot has grown gram-negative rods Citrobacter koseri with sensitivity pending. PHYSICAL EXAMINATION: General: This is an 88-year-old male resting quietly in bed. He appears chronically ill. No acute distress. Skin: Warm and dry. HEENT: Normocephalic, atraumatic. Conjunctiva is pale. He is legally blind. 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 Mucous membranes are dry. Neck: Supple. Trachea midline. No JVD. Cardiovascular: Regular rate and rhythm. He has a soft systolic murmur. Lungs: Clear to auscultation bilaterally. Equal excursion. He is on room air. Abdomen: Soft, nontender. Positive bowel sounds. Genitourinary: Not inspected. Minimal void with dialysis assist. Extremities: Patient continues to have dressing to his right foot. No shadow drainage noted. No odor present on inspection. Neurological: He is alert and oriented to person and to place. ASSESSMENT AND PLAN: 1. Chronic kidney disease stage 5D. The patient is due for his routine dialysis treatment in the a.m. No indications for intervention today. 2. Electrolytes, acid-base balance. These are acceptable. 3. Anemia. This remains low but stable. Hemoglobin of 8.7 today. He had received 1 unit of packed red blood cells. 4. Wound to right foot. This is currently being evaluated by Dr. Maradiaga for possible discussion of right great toe amputation. I would like to thank you for allowing us to follow with this patient. Dictated by MEGHAN Araujo for Gamal South MD Face to face encounter, data reviewed, discussed with Marla Yates on 12/19/18. I agree with the above assessment and plan of care. cc: MEGHAN Araujo MD [facility]
[2018-12-18] MEDS ORDERED: AMIDATE ONE (17:55)
[2018-12-18] MEDS: DILAUDID ONE ×2 (18:50→18:53)
[2018-12-18] MEDS: DESYREL PO SCH (20:51)
[2018-12-18] MEDS: NORCO-7.5 PO PRN (20:51)
--- NOTE | 2018-12-18 21:10 | OPERATIVE NOTE ---
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 PROCEDURE: Right first ray amputation through the metatarsal. SURGEON: Carlos Maradiaga MD GREETING CARD EDITOR: MEGHAN Chin, who was an integral part of the case helping with all aspects of the case, helping to increase our OR efficiency greatly. ANESTHESIA: General with LMA. IMPLANTS: None. DISPOSITION: To PACU, hemodynamically stable. INDICATION FOR PROCEDURE: Mr. Anna is an 88-year-old male who had this wound on his first metatarsal. CT showed air in the metatarsal head and a lot of erosion of the metatarsal distally in the proximal phalanx and the distal phalanx of the great toe. I discussed with him about ray amputation. He expressed understanding and wished to proceed. DESCRIPTION OF THE PROCEDURE: Mr. Anna was identified in the preoperative holding area. He was then wheeled to the operating room, placed supine on the operating table. All bony prominences were well padded. He was induced under general anesthesia. LMA was placed. Right lower extremity was then prepped with Betadine and Betadine solution and draped in normal sterile fashion. Surgical pause was performed. We identified the correct patient, correct side, and the correct procedure. Preoperative antibiotics were given. He already had a wound about 3 cm in diameter over the medial aspect of his first MTP joint. First used a knife and went down to bone and amputated the great toe through the MTP joint and got it out. I cultured the purulence that was there. I then made a longitudinal incision of the first metatarsal medially. I made a cut in that metatarsal, and it still looked like the tissue was not great so I came back at little bit more proximal and made another cut of the metatarsal and that tissue actually looked really good. Unfortunately, a lot of the soft tissue looked infected as well. We excisionally debrided all the necrotic looking tissue. I got all the way to the capsule of the second MTP joint, but we did not go into the capsule. I did not see the actual bone, but we were right there on it. After we performed an extremely thorough debridement with a scalpel, curette and rongeur, we then irrigated everything copiously with normal saline. Actually the tissues all looked pretty good after that. I then used 0 Maxon. I used just two of those to close some of the deep tissue up and to close down the space and then I used nylon on the skin to close as much as I could. I left the distal part open because that was the part that looked the worst as far as the soft tissue. We packed it with Vashe gauze and then put a soft dressing on. Esmarch tourniquet that was around the calf was then taken off. He was then awakened from general anesthesia, moved from his own bed and taken to the PACU in stable condition. Postoperatively, he will be nonweightbearing in the right lower extremity with the wound care team consulted, and they will put a wound VAC on tomorrow. cc: Carlos Maradiaga MD
[2018-12-19] MEDS: DUONEB (A & A) INH SCH ×4 (03:58→22:14)
[2018-12-19] MEDS: NORCO-7.5 PO PRN ×3 (06:02→20:21)
[2018-12-19] MEDS: HUMALOG SUBQ SCH ×4 (06:51→23:25)
[2018-12-19 07:53] LABS: HEMATOCRIT 27.5 % (42.0-52.0); HEMOGLOBIN 8.6 g/dL (14.0-18.0); MCH 29.9 PG (27-31); MCHC 31.3 g/dL (33-37); MCV 95.5 FL (81-99); MPV 10.1 FL (7.4-10.4); RBC 2.88 XMIL (4.7-6.1); RDW 16.6 % (11.5-14.5); WBC 12.75 X1000 (4.8-10.8)
--- NOTE | 2018-12-19 08:09 | PROGRESS NOTE ---
DATE: 12/19/2018 SUBJECTIVE: Mr. Anna is lying in bed this morning. He says he is not feeling great this morning. His foot is hurting him some. OBJECTIVE: Right lower extremity exam, his dressing is clean, dry, and intact. There is not really any drainage to the dressing. His other toes look good, I do not see any erythema there. ASSESSMENT: Status post right 1st ray amputation. PLAN: We will get the Wound Care team today to put a wound VAC on that distal wound, and that will help also suck out some of any fluid that may be collecting there and help stimulate some granulation tissue distally. We will continue to monitor his wound. He will need IV antibiotics still. cc: Carlos Maradiaga MD
[2018-12-19 08:24] LABS: ALBUMIN 2.9 g/dL (3.5-5.0); CALCIUM 9.1 mg/dL (8.8-10.2); PHOSPHORUS 3.6 mg/dL (2.7-4.5); POTASSIUM 3.9 mmol/L (3.5-5.1)
[2018-12-19] MEDS ORDERED: TIGHT: 0.2 ML/HR FOR DIALYSIS MISC PRN (09:57)
[2018-12-19] MEDS ORDERED: NS 2,000 ML MISC PRN (09:57)
[2018-12-19] MEDS ORDERED: HEPARIN IV PRN (09:57)
[2018-12-19] MEDS: HEPARIN SUBQ SCH ×2 (10:02→20:22)
[2018-12-19] MEDS: ZYVOX PO SCH ×2 (10:02→20:22)
--- NOTE | 2018-12-19 13:41 | PROGRESS NOTE ---
DATE: 12/19/2018 SUBJECTIVE: The patient is resting comfortably in bed. He has no complaints. No acute events noted overnight. OBJECTIVE: Vital Signs: Temperature 99.7 degrees, blood pressure 168/51, heart rate 81, respirations 14, O2 saturation 97% on room air. General: This is a chronically ill-appearing elderly male lying in bed in no acute distress. Heart: S1, S2 normal. Regular rate and rhythm. Lungs: Equal air entry bilaterally. No crackles. No rales. Abdomen: Positive bowel sounds. Soft, nontender, nondistended. Extremities: No edema. The right foot is wrapped in a clean dry Reji bandage. Neuro: The patient is alert and oriented x3. LABS: White blood cell count 12, hemoglobin 8.6, hematocrit 27, platelets 350,000, sodium 137, potassium 3.9, chloride 97, CO2 24, BUN 22, creatinine 5, glucose 139. ASSESSMENT AND PLAN: 1. Status post right 1st ray amputation secondary to osteomyelitis. Continue with wound care as directed by the orthopedic surgeon. The patient also remains on intravenous antibiotics under the direction of Dr. Escobar. 2. Insulin-dependent diabetes mellitus. Continue on sliding scale insulin. 3. End-stage renal disease. Management as per the splitter operator. 4. Hypertension. Will restart the patient's Norvasc. 5. Benign prostatic hypertrophy. Continue on Flomax. 6. Deep vein thrombosis prophylaxis. Continue on heparin. cc: Bonnie Bowens MD
[2018-12-19] MEDS ORDERED: MAXIPIME 1 GM in NS 50 ML IV SCH (15:45)
[2018-12-19] MEDS ORDERED: MAXIPIME 1 GM in NS 50 ML IV ONE (17:00)
[2018-12-19] MEDS ORDERED: KEFZOL 1 GM/D5W 1 GM/50 ML IVPB IV SCH (17:00)
[2018-12-19] MEDS ORDERED: MAXIPIME ONE (17:39)
--- NOTE | 2018-12-19 18:29 | NEPHROLOGY PROGRESS NOTE ---
DATE: 12/19/2018 SUBJECTIVE: He is lying in bed on dialysis. He denies any new complaints today. No shortness of breath, nausea, vomiting. OBJECTIVE: Vital Signs: Blood pressure 168/51, heart rate 81, respirations 14, temperature 99.7 degrees. General: No acute distress. Skin: Warm and dry. Conjunctivae are pink. Neck: Neck veins are not distended. Heart: Regular with gallop and systolic murmur. Lungs: Equal. No crackles. Abdomen: Soft, nontender. Bowel sounds are present. Extremities: Have no edema, clubbing, or cyanosis. IMPRESSION: 1. Chronic kidney disease 5D. He is undergoing his routine hemodialysis plan today. Electrolytes/acid base in target. 2. Anemia. Below target but stable. Does not meet criteria for transfusion today. He has received a single unit of packed red blood cells. 3. Osteomyelitis with possible sepsis. Dr. Escobar is managing. cc: Gamal South MD
--- NOTE | 2018-12-19 18:51 | INFECTIOUS DISEASE PROGRESS NO ---
DATE: 12/19/2018 HISTORY OF PRESENT ILLNESS: The patient has osteomyelitis of the right foot. He has had first ray amputation through the metatarsal performed by Dr. Maradiaga which effectively removed the patient's osteomyelitis. The patient also may have bibasilar infiltrates which could be due to pneumonia. The patient's blood cultures show he has 1 of 2 blood cultures positive for Staph epidermidis. This is a contaminant and does not require treatment. MEDICATIONS: The patient currently is getting Zyvox for the past 3 days and Ancef for the past 5 days. PHYSICAL EXAMINATION: Vital Signs: Temperature is 99.7 degrees, pulse 81, respirations 14, blood pressure 128/51. General: This is a chronically ill-appearing elderly male. He is in no acute distress. Head, eyes, ears, nose, and throat: He can hear my spoken words and see near objects. He does not have any white coating on his tongue. Neck: The patient does not have any pain when he turns his head. Lungs: Clear to auscultation. Cardiovascular: Regular heart rate. Abdomen: Soft and nontender. Extremities: The patient's right foot has the VAC in place. The patient's right upper arm has the patient's AV fistula which is functional and not bleeding. Neurologic: He is awake. He can move his extremities. There is no tremor. Thorax: The patient has a pacemaker present on the left side. LABS AND X-RAY: CBC today shows a white count of 12,750, hemoglobin 8.6, and platelet count 350,000. Creatinine is 5, GFR is 13. Procalcitonin is 0.39, which means the patient likely has pneumonia. One of 2 blood cultures is growing Staph epidermidis which does not require antibiotic therapy because the Staph epidermidis is a contaminant. The patient's right foot is growing Citrobacter. ASSESSMENT AND PLAN: The patient has a positive blood culture. It is a contaminant so he does not have bacteremia. He had an infection of his right great toe, however, he has had a ray amputation of the toe so the osteomyelitis has been removed. Finally, the patient may have a pneumonia. I am going to continue with Zyvox, but I am going to discontinue Ancef and instead give the patient cefepime in a dose of 1 g IV after each dialysis. COMORBIDITIES: He has diabetes mellitus. He has previously had a stroke. He has had cancer of the kidney. He also has dementia and end-stage renal disease for which he is on dialysis. cc: Rao Escobar MD
[2018-12-19] MEDS: DESYREL PO SCH (20:22)
[2018-12-19] MEDS: FLOMAX PO SCH (20:22)
[2018-12-20] MEDS: NORCO-7.5 PO PRN ×3 (05:10→22:34)
[2018-12-20] MEDS: DUONEB (A & A) INH SCH ×4 (06:43→22:47)
[2018-12-20] MEDS: HUMALOG SUBQ SCH ×4 (06:43→20:36)
[2018-12-20 07:51] LABS: BASO# 0.03 X1000 (0.0-0.2); BASO% 0.2 % (0.0-0.8); EOS# 0.23 X1000 (0.0-0.7); EOS% 1.7 % (0.0-10.0); HEMATOCRIT 29.6 % (42.0-52.0); HEMOGLOBIN 9.5 g/dL (14.0-18.0); IMM GRAN# 0.02 X1000 (0.0-0.04); IMM GRAN% 0.1 % (0.0-0.5); LYMPH# 1.41 X1000 (1.2-3.4); LYMPH% 10.2 % (20.5-51.1); MCHC 32.1 g/dL (33-37); MCV 93.4 FL (81-99); MONO# 0.87 X1000 (0.11-0.59); MONO% 6.3 % (1.7-9.3); MPV 9.7 FL (7.4-10.4); NEUT# 11.27 X1000 (1.4-6.5); NEUT% 81.5 % (42.2-75.2); PLT 334 X1000 (130-400); RBC 3.17 XMIL (4.7-6.1); RDW 16.7 % (11.5-14.5); WBC 13.83 X1000 (4.8-10.8)
[2018-12-20 07:57] LABS: ALBUMIN 2.8 g/dL (3.5-5.0); CALCIUM 8.8 mg/dL (8.8-10.2); CREATININE 3.4 mg/dL (0.7-1.2); PHOSPHORUS 3.3 mg/dL (2.7-4.5)
[2018-12-20 08:43] LABS: LYMPHS 8 % (21-51); MONO 2 % (1-9); SEGS 90 % (42-75)
[2018-12-20 08:47] LABS: OVALOCYTES 1+
--- NOTE | 2018-12-20 09:32 | PROGRESS NOTE ---
DATE: 12/20/2018 SUBJECTIVE: Mr. Anna is lying in bed this morning. Overall, he says his foot feels a lot better. He is feeling better overall. OBJECTIVE: Right lower extremity exam: Wound VAC is intact. Overall dressing looks good. ASSESSMENT: Status post right first ray amputation. PLAN: Mr. Anna is doing well. We will plan on changing his wound VAC again on Saturday, and we will take everything down and take a look at his wound. cc: Carlos Maradiaga MD
[2018-12-20] MEDS: NORVASC PO SCH (09:51)
[2018-12-20] MEDS: ZYVOX PO SCH ×2 (09:51→20:30)
[2018-12-20] MEDS: HEPARIN SUBQ SCH ×2 (09:51→20:31)
[2018-12-20] MEDS: FLOMAX PO SCH (20:29)
[2018-12-20] MEDS: DESYREL PO SCH (20:29)
[2018-12-20] MEDS: DULCOLAX PR SCH (20:30)
[2018-12-20] MEDS: MIRALAX PO SCH (20:30)
[2018-12-20] MEDS: COLACE PO SCH (20:30)
--- NOTE | 2018-12-20 21:00 | Diag Imaging Result Doc PS360 ---
EXAM: ABDOMEN FLAT/UPRIGHT - 12/20/2018 HISTORY: constipation TECHNIQUE: Portable supine and upright abdomen COMPARISON: 03/02/2015 KUB abdomen FINDINGS: There is mild gaseous bowel distention which is similar to that which was seen on the prior exam. There is no free air identified. There are surgical clips at the right upper quadrant. IMPRESSION: Nonspecific mild gaseous bowel distention. Electronically signed by Abrahan Farias 12/20/2018 8:58 PM
--- NOTE | 2018-12-20 21:14 | PROGRESS NOTE ---
DATE: 12/20/2018 SUBJECTIVE: The patient is resting comfortably in bed. No acute events noted overnight. The patient has not had a bowel movement in several days. OBJECTIVE: Vital Sign: Temperature 97.9 degrees, blood pressure 150/43, heart rate 81, respirations 16, O2 saturation 92% on room air. General: This is a chronically ill-appearing elderly male lying in bed in no acute distress. Heart: S1, S2 normal. Regular rate and rhythm. Lungs: Clear to auscultation bilaterally. No wheezing, no rales, no rhonchi. Abdomen: Positive bowel sounds. Soft, nontender, nondistended. Extremities: The right foot is wrapped in a clean dry dressing. LABS: White blood cell count 13, hemoglobin 9.5, hematocrit 29, platelets 334,000, sodium 135, potassium 4, chloride 94, CO2 23, BUN 14, creatinine 3.4, glucose 167, albumin 2.8. ASSESSMENT AND PLAN: 1. Status post right 1st ray amputation secondary to osteomyelitis. The foot culture is growing Citrobacter. Continue with antibiotic therapy and wound care. 2. Insulin dependent diabetes mellitus. Continue on sliding scale insulin. 3. End stage renal disease. Management as per the labor and delivery registered nurse. 4. Constipation. Will start the patient on scheduled laxative therapy . 5. Hypertension. Continue on Norvasc . 6. Benign prostatic hypertrophy. Continue Flomax. 7. Deep vein thrombosis prophylaxis. Continue on heparin. cc: Bonnie Bowens MD [employer]
[2018-12-21] MEDS: DUONEB (A & A) INH SCH ×4 (03:19→22:35)
[2018-12-21] MEDS: HUMALOG SUBQ SCH ×4 (06:22→20:56)
[2018-12-21 07:40] LABS: ALBUMIN 2.9 g/dL (3.5-5.0); CALCIUM 9.3 mg/dL (8.8-10.2); CREATININE 4.7 mg/dL (0.7-1.2); PHOSPHORUS 3.5 mg/dL (2.7-4.5); POTASSIUM 3.7 mmol/L (3.5-5.1)
[2018-12-21] MEDS ORDERED: FLEET MINERAL OIL ENEMA PR ONE (09:20)
[2018-12-21] MEDS: NORVASC PO SCH (11:59)
[2018-12-21] MEDS: LACTULOSE PO SCH ×2 (11:59→20:51)
[2018-12-21] MEDS: MIRALAX PO SCH ×2 (11:59→20:51)
[2018-12-21] MEDS: ZYVOX PO SCH ×2 (11:59→20:50)
[2018-12-21] MEDS: HEPARIN SUBQ SCH ×2 (11:59→20:51)
[2018-12-21] MEDS: COLACE PO SCH ×2 (11:59→20:51)
[2018-12-21] MEDS: NORCO-7.5 PO PRN ×2 (12:00→20:56)
--- NOTE | 2018-12-21 13:48 | PROGRESS NOTE ---
DATE: 12/21/2018 SUBJECTIVE: The patient complains of abdominal discomfort. He has not had a bowel movement in several days. OBJECTIVE: Vital Signs: Temperature 98.5 degrees, blood pressure 165/60, heart rate 79, respirations 18, O2 saturation 94% on room air. General: This is a chronically ill-appearing elderly male lying in bed in no acute distress. Heart: S1, S2, normal. Regular rate and rhythm. Lungs: Equal air entry bilaterally. No crackles. No rales. Abdomen: Positive bowel sounds. Soft, nontender, nondistended. Extremities: There is a wound VAC in place on the right foot. Neurologic: The patient is alert and oriented x3. LABORATORIES: Sodium 138, potassium 3.7, chloride 98, CO2 27, BUN 20, creatinine 4.7, glucose 121, albumin 2.9. ASSESSMENT AND PLAN: 1. Status post right 1st ray amputation secondary to osteomyelitis. Continue with antibiotic therapy and wound care. 2. Insulin-dependent diabetes mellitus. Continue on sliding scale insulin. 3. Constipation. Continue on laxative therapy. 4. End stage renal disease. Management as per the mailroom clerk. 5. Hypertension. Continue on Norvasc. 6. Benign prostatic hypertrophy. Continue on Flomax. 7. Deep vein thrombosis prophylaxis. Continue on heparin. cc: Bonnie Bowens MD MTDD
[2018-12-21] MEDS: DULCOLAX PR SCH (20:50)
[2018-12-21] MEDS: DESYREL PO SCH (20:50)
[2018-12-21] MEDS: FLOMAX PO SCH (20:51)
[2018-12-22] MEDS: DUONEB (A & A) INH SCH ×4 (03:30→22:00)
[2018-12-22] MEDS: HUMALOG SUBQ SCH ×4 (06:35→23:05)
[2018-12-22] MEDS: MOVANTIK PO SCH (06:35)
--- NOTE | 2018-12-22 06:58 | Diag Imaging Result Doc PS360 ---
EXAM: CHEST-1 VIEW HISTORY: pneumonia TECHNIQUE: Portable chest single view COMPARISON: 12/17/2018 FINDINGS: The lungs are well expanded although the left hemidiaphragm is elevated. The heart is mildly prominent. There is a left-sided pacemaker. The vessels are not distended. There are no infiltrates. No effusion identified. IMPRESSION: Stable chest Electronically signed by Quinton Muñoz 12/22/2018 6:55 AM
[2018-12-22] MEDS ORDERED: NS 2,000 ML MISC PRN (07:23)
[2018-12-22] MEDS ORDERED: TIGHT: 0.2 ML/HR FOR DIALYSIS MISC PRN (07:23)
[2018-12-22] MEDS ORDERED: HEPARIN IV PRN (07:23)
[2018-12-22 07:31] LABS: HEMATOCRIT 28.7 % (42.0-52.0); HEMOGLOBIN 9.1 g/dL (14.0-18.0); MCH 29.8 PG (27-31); MCHC 31.7 g/dL (33-37); MCV 94.1 FL (81-99); RBC 3.05 XMIL (4.7-6.1); RDW 16.6 % (11.5-14.5); WBC 8.64 X1000 (4.8-10.8)
[2018-12-22 07:32] LABS: BASO# 0.02 X1000 (0.0-0.2); BASO% 0.2 % (0.0-0.8); EOS# 0.13 X1000 (0.0-0.7); EOS% 1.5 % (0.0-10.0); IMM GRAN# 0.03 X1000 (0.0-0.04); IMM GRAN% 0.3 % (0.0-0.5); LYMPH# 1.04 X1000 (1.2-3.4); MONO# 0.42 X1000 (0.11-0.59); MONO% 4.9 % (1.7-9.3); MPV 9.4 FL (7.4-10.4); NEUT% 81.1 % (42.2-75.2); PLT 329 X1000 (130-400)
[2018-12-22 08:05] LABS: ALBUMIN 3.1 g/dL (3.5-5.0); POTASSIUM 4.1 mmol/L (3.5-5.1)
[2018-12-22 08:28] LABS: CREATININE 5.9 mg/dL (0.7-1.2)
[2018-12-22] MEDS: COLACE PO SCH ×2 (09:00→23:04)
[2018-12-22] MEDS: MIRALAX PO SCH ×2 (09:00→23:04)
[2018-12-22] MEDS: LACTULOSE PO SCH ×2 (09:00→23:03)
[2018-12-22] MEDS: HEPARIN SUBQ SCH ×2 (13:25→23:03)
[2018-12-22] MEDS: ZYVOX PO SCH ×2 (13:26→23:06)
[2018-12-22] MEDS: NORVASC PO SCH (13:26)
--- NOTE | 2018-12-22 14:50 | PROGRESS NOTE ---
DATE: 12/22/2018 SUBJECTIVE: The patient is resting comfortably. No acute events noted overnight. OBJECTIVE: Vital Signs: Temperature 97.8, blood pressure 149/66, heart rate 83, respirations 14. O2 sats 97% on room air. General: This is a chronically ill-appearing elderly male lying in bed in no acute distress. Heart: S1, S2 normal. Regular rate and rhythm. Lungs: Equal air entry bilaterally. No wheezing. No rales. No rhonchi. Abdomen: Positive bowel sounds. Soft, nondistended. Extremities: There is a wound VAC present on the right foot. Neurologic: The patient is alert and oriented x 3. LABS: White blood cell count 8.6, hemoglobin 9.1, hematocrit 28, platelets 329,000. Sodium 138, potassium 4.1, chloride 96, CO2 23, BUN 28, creatinine 5.9, glucose 141. Chest x-ray shows no effusion. No infiltrates. ASSESSMENT AND PLAN: 1. Status post right 1st ray amputation secondary to osteomyelitis. Continue with wound care and antibiotic therapy. 2. Insulin dependent diabetes mellitus, improved. Continue with sliding scale insulin. 3. End stage renal disease. Management as per the manager recovery. 4. Hypertension. Continue on Norvasc. 5. Benign prostatic hypertrophy. Continue on Flomax. 6. DVT prophylaxis. Continue on heparin. cc: Bonnie Bowens MD MTDD
[2018-12-22] MEDS ORDERED: MAXIPIME 1 GM in NS 50 ML IV ONE (17:00)
--- NOTE | 2018-12-22 17:21 | NEPHROLOGY PROGRESS NOTE ---
DATE: 12/22/2018 SUBJECTIVE: Patient currently undergoing hemodialysis. He states that the pain in his foot is somewhat better. OBJECTIVE: Vital Signs: Temperature 98.5 degrees, pulse 85, respiratory rate 18, blood pressure 169/55, intake not measured, output 200 mL. General: This is an elderly gentleman resting in bed. He is awake, alert, no acute distress. HEENT: Normocephalic, atraumatic. GARRY. Neck: Supple. Cardiovascular: Regular rate and rhythm with a murmur. Pulmonary: He is clear bilaterally. Abdomen: Soft with positive bowel sounds. : Not inspected. Extremities: No clubbing, cyanosis or edema. He does have dressing to the right 1st great toe. 1. Electrolytes, acid-base balance. He will dialyze on a 3 K bath/UF to dry weight 3-1/2 hour treatment. 2. Fluid volume, he is not overloaded. Dictated by MEGHAN Garcia for Gamal South MD Face to face encounter, data reviewed, discussed with Shayy Carrillo on 12/22/18. I agree with the above assessment and plan of care. cc: Gamal South MD [facility]
[2018-12-22] MEDS: NORCO-7.5 PO PRN (17:32)
--- NOTE | 2018-12-22 18:43 | INFECTIOUS DISEASE PROGRESS NO ---
DATE: 12/22/2018 HISTORY OF PRESENT ILLNESS: The patient has osteomyelitis of the right foot which has been operated on by Dr. Maradiaga. The patient also has bibasilar pneumonia. MEDICATIONS: The patient has been receiving Zyvox now for 6 days and cefepime for 3 days. PHYSICAL EXAMINATION: Vital Signs: Temperature is 97.8 degrees, pulse 85, respirations 14, blood pressure 105/68. General: This is a chronically ill-appearing elderly male. He is in no acute distress. Head, eyes, ears, nose, and throat: He can hear my spoken words and see near objects. He does not have any white patches on his tongue. Neck: There is no pain when he moves his head. Lungs: Clear to auscultation. Cardiovascular: Regular heart rate. Thorax: The patient has a pacemaker present on the left side of the chest. The site is not swollen or tender. Extremities: The patient's right arm has an AV fistula in it, which is functional. The patient's right foot has the VAC on it. LAB AND X-RAY: CBC today shows a white count of 8640, hemoglobin 9.1, and platelet count 329,000. Creatinine is 5.9. GFR is 11. The culture taken from the patient's foot grew Citrobacter. ASSESSMENT AND PLAN: The patient has a foot infection and also pneumonia. My plan is to continue with both Zyvox and cefepime. COMORBIDITIES: He has diabetes mellitus, end-stage renal disease for which he is on hemodialysis, dementia, and the patient has previously had cancer of the kidney and a stroke. cc: Rao Escobar MD
[2018-12-22] MEDS: FLOMAX PO SCH (23:04)
[2018-12-22] MEDS: DESYREL PO SCH (23:04)
[2018-12-22] MEDS: DULCOLAX PR SCH (23:05)
[2018-12-23] MEDS: DUONEB (A & A) INH SCH ×5 (03:00→22:50)
[2018-12-23] MEDS: HUMALOG SUBQ SCH ×4 (06:33→21:18)
[2018-12-23] MEDS: MOVANTIK PO SCH (06:33)
[2018-12-23 07:11] LABS: HEMOGLOBIN 9.3 g/dL (14.0-18.0); MCH 29.7 PG (27-31); MCV 95.8 FL (81-99); MPV 9.1 FL (7.4-10.4); RBC 3.13 XMIL (4.7-6.1); RDW 16.3 % (11.5-14.5); WBC 6.98 X1000 (4.8-10.8)
[2018-12-23 07:39] LABS: CALCIUM 8.6 mg/dL (8.8-10.2); CREATININE 3.5 mg/dL (0.7-1.2)
--- NOTE | 2018-12-23 08:14 | PROGRESS NOTE ---
DATE: 12/23/2018 SUBJECTIVE: Mr. Anna is lying in bed this morning. Overall, he is feeling pretty good. OBJECTIVE: Right lower extremity exam, we took the dressing down. The point of the incision that we closed actually is looking good this morning. He has some granulation tissue distally. He really did not have a lot of swelling to the foot. I do not see any purulence anywhere either. ASSESSMENT: Status post right 1st ray amputation. PLAN: I am okay with Mr. Anna being put back into the wound VAC today. We will have to balance the wound VAC with healing that incision, because with the tape on there it does macerate that incision some. We will probably have to go back and forth between wound VAC and a wet to dry dressing with VasheArpita Meza our wound care nurse will see Mr. Anna today. If everything looks good, she will probably end up putting the wound VAC back on. cc: Carlos Maradiaga MD
[2018-12-23] MEDS: COLACE PO SCH ×2 (09:39→21:20)
[2018-12-23] MEDS: HEPARIN SUBQ SCH ×2 (09:39→21:27)
[2018-12-23] MEDS: ZYVOX PO SCH ×2 (09:39→21:27)
[2018-12-23] MEDS: MIRALAX PO SCH ×2 (09:39→21:25)
[2018-12-23] MEDS: NORVASC PO SCH (09:40)
[2018-12-23] MEDS: LACTULOSE PO SCH ×2 (09:40→21:20)
--- NOTE | 2018-12-23 12:03 | NEPHROLOGY PROGRESS NOTE ---
DATE: 12/23/2018 SUBJECTIVE: He has no complaints today. Lying flat in bed. No nausea, shortness of breath, etc. OBJECTIVE: Blood pressure 178/65, heart rate 83, respirations 16, afebrile. Generally, an elderly man lying in bed in no distress. Skin is warm and dry. Conjunctivae are pink. Neck veins are not distended. Heart is regular, no gallops. Lungs are equal. No crackles. Abdomen is soft, nontender, bowel sounds present. Extremities have no edema, clubbing, or cyanosis. His foot is dressed. IMPRESSION: 1. Chronic kidney disease, 5D. He will have his next planned dialysis treatment tomorrow. He is euvolemic. 2. Electrolytes and acid-base are in target. 3. Hemoglobin is below target, but stable. He is not meet criteria for transfusion. cc: Gamal South MD
--- NOTE | 2018-12-23 17:45 | PROGRESS NOTE ---
DATE: 12/23/2018 SUBJECTIVE: The patient is resting comfortably on bed. OBJECTIVE: Vital Signs: As follows: Temperature 97.8, pulse 85, respirations 20, blood pressure 161/59, oxygen saturation is 95%. HEENT: Atraumatic, normocephalic. Cardiovascular: S1, S2. Respiratory: Has evidence of good air entry bilaterally. Abdomen: Soft, nontender. No masses felt. Extremities: Wound site right foot. Has a wound VAC in place. Central Nervous System: No obvious focal deficits noted. LABORATORY DATA: WBC 6.98, hematocrit 30, with a platelet count of 323,000. Sodium is 136, potassium 4.0, chloride 97, bicarb 26, BUN is 14, ASSESSMENT AND PLAN: 1. Status post right 1st ray amputation secondary to osteomyelitis. Continue local wound care as well as antibiotics. Patient currently has a wound VAC over the wound site. 2. Diabetes mellitus. Continue blood sugar medications as well as sliding scale insulin. 3. End-stage renal disease. Management per Nephrology Team. 4. Hypertension. Continue antihypertensive medications. 5. Benign prostatic hypertrophy. Continue Flomax. 6. DVT prophylaxis. Heparin. cc: Gilbert Franklin MD MTDD
[2018-12-23] MEDS: DULCOLAX PR SCH (21:18)
[2018-12-23] MEDS: NORCO-7.5 PO PRN (21:26)
[2018-12-23] MEDS: DESYREL PO SCH (21:27)
[2018-12-23] MEDS: FLOMAX PO SCH (21:27)
[2018-12-24] MEDS: DUONEB (A & A) INH SCH ×4 (03:34→21:19)
[2018-12-24] MEDS: HUMALOG SUBQ SCH ×4 (06:24→21:18)
[2018-12-24] MEDS: MOVANTIK PO SCH (06:25)
[2018-12-24] MEDS ORDERED: TIGHT: 0.2 ML/HR FOR DIALYSIS MISC PRN (06:39)
[2018-12-24] MEDS ORDERED: HEPARIN IV PRN (06:39)
[2018-12-24] MEDS ORDERED: NS 2,000 ML MISC PRN (06:39)
[2018-12-24] MEDS: HEPARIN SUBQ SCH ×2 (08:30→20:16)
[2018-12-24] MEDS: COLACE PO SCH ×2 (08:30→20:15)
[2018-12-24] MEDS: LACTULOSE PO SCH ×2 (08:30→20:16)
[2018-12-24] MEDS: NORVASC PO SCH (08:30)
[2018-12-24] MEDS: MIRALAX PO SCH ×2 (08:31→20:16)
[2018-12-24] MEDS: ZYVOX PO SCH (08:31)
--- NOTE | 2018-12-24 09:08 | NEPHROLOGY PROGRESS NOTE ---
DATE: 12/24/2018 SUBJECTIVE: He has no new complaints today. He is eating well. No shortness of breath, etc. OBJECTIVE: Vital Signs: Blood pressure 157/56, heart rate 80, respirations 20, afebrile. General: No acute distress. Skin: Warm and dry. Eyes: Conjunctivae are pink. Neck: Neck veins are not distended. Heart: Regular. No gallops. Lungs: Equal. No crackles. Abdomen: Soft, nontender. Bowel sounds present. Extremities: No edema, clubbing or cyanosis. IMPRESSION: Chronic kidney disease 5D. He will have his routine hemodialysis today using a 2 K bath and 2 L ultrafiltration target. Laboratory data are pending but his hemoglobin is within target and no transfusion required. Electrolytes and acid-base are in target as of yesterday. cc: Gamal South MD
[2018-12-24] MEDS ORDERED: MAXIPIME 1 GM in NS 50 ML IV ONE (17:00)
--- NOTE | 2018-12-24 17:49 | PROGRESS NOTE ---
DATE: 12/24/2018 SUBJECTIVE: Patient is resting comfortably in bed. OBJECTIVE: Vital signs: Temperature 98.3 degrees, pulse 85, respirations 20, blood pressure is 181/65, oxygen saturation is 96%. HEENT: Patient is atraumatic, normocephalic. Cardiovascular system: S1, S2. Respiratory system: Evidence of good air entry bilaterally. Abdomen: Soft, nontender. No masses felt. Extremities: Wound VAC over the wound site, right foot. Central nervous system: No obvious focal deficits noted. LABS: Blood glucose is 121. ASSESSMENT AND PLAN: 1. Status post right first ray amputation secondary to osteomyelitis. Continue local wound care as well as antibiotics. Wound VAC now over the wound site. 2. Diabetes mellitus. Continue blood sugar monitoring as well as sliding scale insulin. 3. End-stage renal disease. Management per Nephrology team. 4. Hypertension. Continue current antihypertensive medications. 5. Benign prostatic hypertrophy. Continue Flomax. 6. Deep vein thrombosis prophylaxis. Heparin. 7. Disposition. The patient can be discharged to rehab when considered appropriate by the surgical team. cc: Gilbert Franklin MD
[2018-12-24] MEDS: DESYREL PO SCH (20:15)
[2018-12-24] MEDS: FLOMAX PO SCH (20:15)
[2018-12-24] MEDS: NORCO-7.5 PO PRN (20:15)
[2018-12-24] MEDS: DULCOLAX PR SCH (20:15)
--- NOTE | 2018-12-24 21:28 | INFECTIOUS DISEASE PROGRESS NO ---
DATE: 12/24/2018 PRESENT ILLNESS: The patient has had surgery by Dr. Maradiaga for osteomyelitis of the right foot. The patient initially had a bibasilar pneumonia, but on the latest chest x-ray, all the pneumonia has cleared. MEDICATIONS: The patient has been on Zyvox and cefepime more recently for 7 days; worth of Zyvox and 4 days' worth of cefepime. PHYSICAL EXAMINATION: Vital Signs: Temperature is 98.3 degrees, pulse 85, respirations 20, blood pressure 181/65. General: This is a chronically ill-appearing, elderly male. He is in no acute distress. Head, eyes, ears, nose, and throat: He can hear my spoken words and see near objects. He does not have any white coating on his tongue. Neck: He does not have any pain when he turns his head. Lungs: Clear to auscultation. Cardiovascular: The patient's heart rate is regular. He has a pacemaker in place. Thorax: The patient has a pacemaker on the left side. The site is not swollen or tender. Lungs: Clear to auscultation. Abdomen: Soft and nontender. Extremities: The patient's right foot has a VAC in place on it. Neurologic: The patient is awake. He can move his extremities. There is no tremor. Extremities: The patient has an AV fistula on the right arm. The fistula is functional. LABORATORY AND X-RAY: There was no lab today. The chest x-ray showed no pneumonia. ASSESSMENT AND PLAN: The patient's pneumonia has cleared. He had osteomyelitis of the right foot. It was operated on by Dr. Maradiaga. The patient's culture from his right foot, there were 2 cultures and they grew the same thing, namely Citrobacter. I have discontinued the current antibiotics, and instead, I am going to start the patient on Levaquin 250 mg p.o. daily. If there is any question that there could be some remaining osteomyelitis, I will plan to treat for 6 weeks. If it has all been removed with surgery, then I think probably a week's worth of Levaquin would be necessary. The patient's comorbidities are he is elderly. He has diabetes mellitus and end-stage renal disease for which he is on hemodialysis. 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 cc: Rao Escobar MD
[2018-12-25] MEDS: NORCO-7.5 PO PRN ×2 (03:15→21:56)
[2018-12-25] MEDS: DUONEB (A & A) INH SCH ×4 (03:24→21:39)
[2018-12-25] MEDS: MOVANTIK PO SCH (05:30)
[2018-12-25] MEDS: HUMALOG SUBQ SCH ×4 (06:02→21:53)
--- NOTE | 2018-12-25 06:58 | NEPHROLOGY PROGRESS NOTE ---
DATE: 12/25/2018 SUBJECTIVE: He has no complaints today. He states he is feeling well. No nausea or vomiting. He has not had breakfast yet but he has been eating normally. OBJECTIVE: Vital Signs: Blood pressure 165/59, heart rate 80, respirations 20, afebrile. General: No acute distress. Skin: Warm and dry. Neck: Neck veins are not visible. Heart: Regular with S4. Lungs: Equal. No crackles or wheezes. Abdomen: Soft, nontender. Bowel sounds present. Extremities: No edema, clubbing, or cyanosis. IMPRESSION: Chronic kidney disease 5D. He had his routine hemodialysis treatment yesterday. Electrolytes and acid-base have not been measured yet today but we were in target as of yesterday. Euvolemic. Blood pressure is above target. He is currently receiving amlodipine. We will add lisinopril 20 mg. cc: Gamal South MD
[2018-12-25] MEDS: LEVAQUIN PO SCH (10:12)
[2018-12-25] MEDS: NORVASC PO SCH (10:12)
[2018-12-25] MEDS: HEPARIN SUBQ SCH ×2 (10:13→21:54)
[2018-12-25] MEDS: PRINIVIL PO SCH (10:13)
[2018-12-25] MEDS: MIRALAX PO SCH ×2 (10:14→21:57)
[2018-12-25] MEDS: LACTULOSE PO SCH ×2 (10:14→21:57)
[2018-12-25] MEDS: COLACE PO SCH ×2 (10:15→21:57)
--- NOTE | 2018-12-25 18:43 | PROGRESS NOTE ---
DATE: 12/25/2018 SUBJECTIVE: Patient resting. The patient is seated on the chair. Not in any obvious distress. OBJECTIVE: Vital signs: Temperature is 98.3 degrees, pulse 81, respiratory 16, blood pressure 176/69, oxygen saturation is 94%. HEENT: Atraumatic, normocephalic. Cardiovascular: S1, S2. Regular rate and rhythm. Respiratory: Evidence of good entry bilaterally. Abdomen: Soft, nontender. No masses felt. Extremities: Wound VAC over the wound site, right foot. ASSESSMENT AND PLAN: 1. 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 Plan: Continue local wound care as well as antibiotics. Wound VAC now over the wound site. 2. Diabetes mellitus. Continue blood sugar monitoring as well as sliding scale insulin. 3. End-stage renal disease. Continue to follow up for recommendations of Nephrology. 4. Hypertension. Continue current antihypertensive regimen. 5. Benign prostatic hypertrophy. Flomax. 6. Deep vein thrombosis prophylaxis. Heparin. 7. Disposition: This patient presently can be discharged to rehab tomorrow if all consultants are in agreement. cc: Gilbert Franklin MD
[2018-12-25] MEDS: DESYREL PO SCH (21:56)
[2018-12-25] MEDS: FLOMAX PO SCH (21:56)
[2018-12-25] MEDS: DULCOLAX PR SCH (21:57)
[2018-12-26] MEDS: DUONEB (A & A) INH SCH ×3 (03:32→16:30)
[2018-12-26] MEDS ORDERED: HEPARIN IV PRN (06:12)
[2018-12-26] MEDS ORDERED: TIGHT: 0.2 ML/HR FOR DIALYSIS MISC PRN (06:12)
[2018-12-26] MEDS ORDERED: NS 2,000 ML MISC PRN (06:12)
[2018-12-26] MEDS: HUMALOG SUBQ SCH ×2 (06:41→11:38)
[2018-12-26] MEDS: MOVANTIK PO SCH (06:41)
--- NOTE | 2018-12-26 07:24 | PROGRESS NOTE ---
DATE: 12/26/2018 SUBJECTIVE: Mr. Anna is lying in bed this morning. Overall feeling okay. OBJECTIVE: Right lower extremity exam, we took his dressing down and took the wound VAC off. Wound is really slow to heal. Even the part we were able to get back approximated. I do not see any drainage from anything there. 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 PLAN: Mr. Anna is going to go to wet-to-dry dressing today. Susana, our wound care nurse will see him today. I would probably start with wet-to-dry dressings now. I just think the tape from the wound VAC is impeding healing on the closed incision part so I would do a Vashe wet to dry on him over the next few days. If wound care can be set up on an outpatient then I am okay with him being discharged from the hospital and I would like to see him in about a week in clinic. cc: Carlos Maradiaga MD
[2018-12-26] MEDS: NORVASC PO SCH (07:59)
[2018-12-26] MEDS: PRINIVIL PO SCH (07:59)
[2018-12-26] MEDS: MIRALAX PO SCH (07:59)
[2018-12-26] MEDS: COLACE PO SCH (07:59)
[2018-12-26] MEDS: LACTULOSE PO SCH (08:00)
[2018-12-26] MEDS: HEPARIN SUBQ SCH (08:00)
[2018-12-26] MEDS: LEVAQUIN PO SCH (08:00)
[2018-12-26 10:53] LABS: ALBUMIN 3.2 g/dL (3.5-5.0); CALCIUM 9.1 mg/dL (8.8-10.2); CREATININE 4.7 mg/dL (0.7-1.2); POTASSIUM 4.1 mmol/L (3.5-5.1)
[2018-12-26 12:31] LABS: HEMATOCRIT 27.7 % (42.0-52.0); HEMOGLOBIN 8.9 g/dL (14.0-18.0); MCH 30.3 PG (27-31); MCHC 32.1 g/dL (33-37); MCV 94.2 FL (81-99); MPV 10.1 FL (7.4-10.4); RBC 2.94 XMIL (4.7-6.1); RDW 16.4 % (11.5-14.5); WBC 7.35 X1000 (4.8-10.8)
[2018-12-26 13:45] VITALS: BP 151/70
--- NOTE | 2018-12-26 14:45 | DISCHARGE SUMMARY ---
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 SECONDARY DIAGNOSES: 1. Pneumonia 2. End-stage renal disease on hemodialysis. 3. Diabetes mellitus. 4. Coronary artery disease. 5. Hypertension. 6. Hyperlipidemia. 7. Blindness. 8. Mild cognitive dysfunction. DISCHARGE MEDICATIONS: Include the followin. Levofloxacin 250 mg p.o. daily, as directed. 2. Hydrocodone 7.5 1 to 2 tabs every 6 hours as needed. 3. Lisinopril 10 mg p.o. daily. 4. Gabapentin 200 mg at bedtime. 5. Tamsulosin 0.4 mg at bedtime. 6. Trazodone 1 tab at bedtime. 7. Amlodipine 10 mg p.o. daily. 8. Simvastatin 10 mg p.o. at bedtime. 9. Insulin 70/30 12 units subcutaneous at bedtime. 10. Aspirin 81 mg p.o. daily. CONSULTATIONS DONE DURING THIS HOSPITAL STAY: 1. Dr. Gonzalez, orthopedics. 2. Dr. Rao Escobar, infectious disease. 3. Dr. Gamal South, nephrology. SPECIAL PROCEDURES DONE DURING THIS HOSPITAL STAY: Lower extremity CT 12/16/2018 right 4th ray amputation through the metatarsal 12/18/2018. HOSPITAL COURSE: Mr. Anna is an 88 -year-old male who presented to hospital because of foul- smelling diabetic wound involving the right foot. The wound had been debrided recently by Dr. Maradiaga. When he presented his gauze was saturated with blood. Temperature was as high as 101.1 degrees, The patient was placed on antibiotics and was seen by the infectious disease team. In addition, the patient was noted to have bilateral pneumonia. The patient was also seen by the orthopedic team and subsequently had right 1st ray amputation through the metatarsal. Postop patient required wound VAC but this has since been discontinued. He received hemodialysis while in the hospital. At this time, patient is stable. He can be discharged to a rehab facility where he will continue to recuperate. His diet to be renal as well as diabetic. Activity as tolerated. He is expected to get discharge medications as noted above. FOLLOWUP: 1. Dr. Carlos Maradiaga. 2. Dr. Rao Escobar. 3. Dr. Pittman, primary care physician. 4. Dr. Gamal Hylton [facility] water fitness instructor. cc: Gilbert Franklin MD
[2018-12-26] MEDS: NORCO-7.5 PO PRN (15:11)
--- NOTE | 2018-12-26 16:21 | NEPHROLOGY PROGRESS NOTE ---
DATE: 12/26/2018 SUBJECTIVE: He had dialysis today, and he was examined immediately after he returned. He denied complaints with his dialysis today. No chest pain, shortness of breath, or other complaints. OBJECTIVE: Vital Signs: Blood pressure 151/70, heart rate 87, respiration 18, afebrile. General: No acute distress. Skin: Warm and dry. Heart: Regular. Lungs: Equal. Abdomen: Benign. Extremities: No edema, clubbing, or cyanosis. IMPRESSION: 1. Chronic kidney disease 5D. He had his routine dialysis today and tolerated it well. 2. Electrolytes/acid base/blood pressure. All acceptable. His blood pressure overall his running above target, but we will address this as an outpatient. 3. Anemia is below target but stable. cc: Gamal South MD
== END 2018-12-26 18:32 | DRG 616 ==
LOC: SUPCPDRO → ED 17:50 → SUATTDRO 21:01 → 3N 21:01
PROVIDERS: ATTEND Internal Medicine
CPT/HCPCS: 36430; 71010; 71020; 71045; 71046; 73630; 73700; 74019; 74020; 80048; 80053; 80069; 82607; 82728; 82746; 82948; 83540; 83550; 83605; 83735; 84145; 84443; 85014; 85018; 85025; 85027; 85045; 86140; 86850; 86900; 86901; 86920; 87040; 87070; 87075; 87077; 87186; 87205; 88305; 93005; 93010; 94640; 94761; 96365; 97110; 97116; 97162; 97530; 99285; A9270; J0692; J0696; J0878; J1170; J1644; J1815; J1956; J2405; J3370; J7030; P9016; XXXXX

== ENCOUNTER 2019-02-10 13:39 | Observation (INO) ==
--- NOTE | 2019-02-10 14:32 | EKG Report ---
Test Performed on : 02/10/2019 2:15:15 PM Test Reason : AMS Blood Pressure : / mmHG Vent. Rate : 081 BPM Atrial Rate : 081 BPM P-R Int : 210 ms QRS Dur : 170 ms QT Int : 450 ms P-R-T Axes : 062 -10 154 degrees QTc Int : 522 ms Atrial-sensed ventricular-paced rhythm with prolonged AV conduction Abnormal ECG When compared with ECG of 16-DEC-2018 07:13, Vent. rate has increased BY 6 BPM Unconfirmed Result
[2019-02-10 14:53] LABS: ALLEN TEST NO; BE 1.5 mmoll (-3.0-3.0); BLOOD TYPE ARTERIAL; HCO3-(ACT) 25.9 mmoll (20.0-26.0); METHB 0.8 % (0.0-1.5); O2(CT) 17.7 mL/dL (15.0-23.0); O2HB 91.3 % (95.0-99.0); PCO2(98.6) 46 mmHg (35-45); PO2(98.6) 67 mmHg (60-100); SAMPLE BLOOD; THB 13.8 g/dL (11.5-17.4); pH(98.6) 7.38 (7.35-7.45)
[2019-02-10 14:54] LABS: MODALITY ROOM AIR
[2019-02-10 15:00] LABS: BASO# 0.01 X1000 (0.0-0.2); BASO% 0.1 % (0.0-0.8); EOS# 0.08 X1000 (0.0-0.7); HEMOGLOBIN 14.2 g/dL (14.0-18.0); IMM GRAN# 0.02 X1000 (0.0-0.04); IMM GRAN% 0.2 % (0.0-0.5); LYMPH# 0.96 X1000 (1.2-3.4); LYMPH% 11.4 % (20.5-51.1); MCH 32.4 PG (27-31); MCHC 33.8 g/dL (33-37); MCV 95.9 FL (81-99); MONO# 0.62 X1000 (0.11-0.59); MONO% 7.4 % (1.7-9.3); MPV 11.2 FL (7.4-10.4); NEUT% 79.9 % (42.2-75.2); PLT 170 X1000 (130-400); RBC 4.38 XMIL (4.7-6.1); RDW 16.9 % (11.5-14.5); WBC 8.39 X1000 (4.8-10.8)
--- NOTE | 2019-02-10 15:17 | Diag Imaging Result Doc PS360 ---
CHEST-1 VIEW - 02/10/2019 INDICATION: ams COMPARISON: 02/09/2019 FINDINGS: Stable pacemaker. Heart size remains top normal. Stable severely low lung volumes. Stable indeterminate bibasilar atelectasis or infiltrates. IMPRESSION: No change from prior. Electronically signed by Roshan De La Fuente 02/10/2019 3:14 PM
--- NOTE | 2019-02-10 16:00 | PROVIDER DOCUMENTATION ---
This chart was entered by Abimbola Saldivar Scribe, acting as scribe for Gerry Alvarado MD. HPI-General Adult - General Source: patient, family, EMS, [place] [facility] records - History of Present Illness -Gen Adult Nature of Presenting Problems: 88 yobm presents to the ed via ems with weekend caregiver at bedside. pt had a fall yesterday and was seen in the ed yesterday with a negative ct . today pt returns to ed with c/o lethargic and mild confusion. pt denies any pain Location of Pain/Injury: reports: none Pain Radiation: reports: no radiation Quality of Pain: reports: none Severity: reports: mild Onset/Duration: reports: this morning (mild confusion) Timing: reports: still present, intermittent Context/Activities at Onset: reports: light activity Modifying Factors: improves with: nothing Associated Symptoms: reports: fatigue, malaise, weakness. denies: back/neck pain, chest pain, cough, diarrhea, fever/chills, shortness of breath Similar Symptoms Previously?: No Recently seen or treated by another doctor?: No <Gerry Alvarado - Last Filed: 02/10/19 19:23> <Taylor Krishnan - Last Filed: 02/10/19 19:45> - General Stated Complaint: LATHARGIC Time Seen by Provider: 02/10/19 14:10 Allergies/Adverse Reactions: Patient Allergies Allergy/AdvReac Type Severity Reaction Status Date / Time No Known Allergies Allergy Verified 02/09/19 06:50 Home Medications: Home Medication List Medication Instructions Recorded Confirmed Last Taken Type Tamsulosin [Flomax] 0.4 mg PO QHS 02/20/17 02/09/19 1 Day Ago History ~02/08/19 Trazodone [Desyrel] 75 mg PO QHS 12/14/17 02/09/19 1 Day Ago History ~02/08/19 Amlodipine Besylate 10 mg PO QHS 03/27/18 02/09/19 1 Day Ago History ~02/08/19 Insulin Humulin 70/30 [Humulin 12 unit SUBQ HS 03/27/18 02/09/19 1 Day Ago History 70/30] ~02/08/19 SIMVAstatin [Zocor] 10 mg PO QHS 03/27/18 02/09/19 1 Day Ago History ~02/08/19 Aspirin 81 mg PO DAILY 12/15/18 02/09/19 1 Day Ago History ~02/08/19 Hydrocodone/APAP 7.5 mg/325 mg 1 - 2 ea PO Q6H PRN PRN tab 12/26/18 02/09/19 Unknown Rx [[place]-7.5] LISINOpril [Prinivil] 20 mg PO DAILY tab 12/26/18 02/09/19 1 Day Ago Rx ~02/08/19 Levofloxacin [Levaquin] 250 mg PO DAILY tab 12/26/18 02/09/19 1 Day Ago Rx ~02/08/19 Gabapentin [Neurontin] 200 mg PO QHS 02/09/19 02/09/19 1 Day Ago History ~02/08/19 Review of Systems - Adult - REVIEW OF SYSTEMS - ADULT Constitutional: reports: see HPI, fatique Eyes: reports: no symptoms reported Ears, Nose, Mouth & Throat: reports: no symptoms reported Cardiovascular: denies: chest pain, palpitations Respiratory: denies: cough, dyspnea on exertion, shortness of breath Gastrointestinal: denies: abdominal pain, diarrhea, nausea, vomiting Genitourinary: reports: no symptoms reported Musculoskeletal: reports: see HPI, muscle weakness Integumentary: reports: no symptoms reported Neurological: denies: ataxia, dizziness/vertigo, headache/migraines, seizure, syncope, tremors Psychiatric: reports: no symptoms reported Endocrine: reports: no symptoms reported Hematologic/Lymphatic: reports: no symptoms reported Allergic/Immunologic: reports: no symptoms reported All Other Systems: Reviewed and Negative <Gerry Alvarado - Last Filed: 02/10/19 19:23> Past History - Adult - PAST MEDICAL HISTORY-ADULT Review of Records: reports: Nursing Assessment Review, Medications Reviewed Major Childhood Illnesses: reports: denies history Cardiovascular: reports: CAD, HTN, hyperlipidemia, pacemaker Respiratory: reports: denies history Gastrointestinal: reports: denies history Genitourinary: reports: dialysis (Tue,Thur,Sat), ESRD, kidney disease Musculoskeletal: reports: denies history Neurological: reports: CVA, stroke deficits (rt sided), TIA Psychiatric: reports: denies history Endocrine/Immune: reports: Diabetes Diabetes Type: Type 2 Other Conditions: reports: blindness, eye problems/injury (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 pt denies pain and if not speaking to him he goes back to sleep) - EYES Eyes: other (pt is blind and keeps his eyes closed on exam) - HEAD, EARS, NOSE, MOUTH & THROAT HENMT: moist mucous membranes, normal ENT inspection - NECK Neck: non-tender, full range of motion, supple, normal inspection - RESPIRATORY Respiratory: chest non-tender, no respiratory distress, no accessory muscle use, rhonchi (left sided) - CARDIOVASCULAR Cardiovascular: normal peripheral pulses, regular rate, rhythm - GASTROINTESTINAL (ABDOMEN) Abdominal Exam: normal bowel sounds, non tender, soft - LYMPHATIC Lymphatic: no adenopathy - MUSCULOSKELETAL Back Exam: normal inspection Extremity: normal capillary refill - SKIN Integumentary: normal color, warm/dry - NEUROLOGIC Neurologic: other (pt has past rt sided weakness from old cva abd is currently has generalized weakness and fatigue). negative: aphasia, facial droop - PSYCHIATRIC Psych/Mental Status: normal thought content, normal thought process <Gerry Alvarado - Last Filed: 02/10/19 19:23> Progress - PLAN OF CARE/RESULTS Result Diagrams: 02/10/19 14:30 02/10/19 17:05 - REASSESSMENT Reassessment #1 Time Reassessed: 15:32 Status: unchanged Reassessment #2 Time Reassessed: 17:01 Status: unchanged - EKG 1 Time of EKG reading by physician:: 14:15 EKG Read and Signed by:: Gerry Alvarado EKG Interpretation (*Must complete 3 of following elements*): Abnormal Rate: 81 Rhythm: atrial sensed ventricular paced rhythm w/ prolonged av conduction [place]: normal QRS: normal MI Interval: normal ST Wave: normal Prior EKG Comparison: unchanged from prior (12/16/18) - XRAY 1 XRAY: Bilateral XRAY Study: Chest Impression: See EMR Report (CHEST-1 VIEW - 02/10/2019 INDICATION: ams COMPARISON: 02/09/2019 FINDINGS: Stable pacemaker. Heart size remains top normal. Stable severely low lung volumes. Stable indeterminate bibasilar atelectasis or infiltrates. IMPRESSION: No change from prior. Electronically signed by Roshan De La Fuente 02/10/2019 3:14 PM 02/10/19 1514 Interpreting Physician: Roshan De La Fuente MD Dictated Date/Time: 02/10/19 1513 cc: Gerry Alvarado MD; Dionicio Mckeon III, MD) - CT/MRI 1 CT Study: Head Impression: See EMR Report (CT HEAD W/O CONTRAST - 02/10/2019 INDICATION: AMS COMPARISON: 02/09/2019 FINDINGS: There is no change from prior. IMPRESSION: No change from prior. This exam was performed using automated exposure control, adjustment of mA or kV according to patient size, and/or use of iterative reconstruction technique Electronically signed by Roshan De La Fuente 02/10/2019 4:26 PM 02/10/19 1626 Interpreting Physician: Roshan De La Fuente MD Dictated Date/Time: 02/10/19 1625 cc: Gerry Alvarado MD; Dionicio Mckeon III, MD) - CHANGE OF SHIFT REPORT (ED Provider) 1 Report Given and Care Transferred to:: Dr Krishnan Time of Transfer: 19:23 Items Pending: Physician Consult/Arrival <Gerry Alvarado - Last Filed: 02/10/19 19:23> - PLAN OF CARE/RESULTS Progress/Plan/Lab Results: Vital Signs - 8 hr 02/10/19 14:13 02/10/19 14:14 02/10/19 14:20 Temperature Pulse Rate 81 Respiratory Rate 18 Blood Pressure 168/75 O2 Sat by Pulse Oximetry 94 L 95 02/10/19 14:30 02/10/19 14:32 02/10/19 14:33 Temperature 97.6 F Pulse Rate 80 81 79 Respiratory Rate 11 L 9 L 10 L Blood Pressure 152/69 152/69 O2 Sat by Pulse Oximetry 99 99 99 02/10/19 14:40 02/10/19 14:50 02/10/19 15:00 Temperature Pulse Rate 80 76 73 Respiratory Rate 11 L 10 L 15 Blood Pressure O2 Sat by Pulse Oximetry 100 100 100 02/10/19 15:03 02/10/19 15:10 02/10/19 15:20 Temperature Pulse Rate 73 72 76 Respiratory Rate 9 L 10 L 10 L Blood Pressure 138/65 O2 Sat by Pulse Oximetry 98 99 100 02/10/19 15:42 02/10/19 15:44 02/10/19 15:50 Temperature Pulse Rate 75 75 75 Respiratory Rate 9 L 11 L 16 Blood Pressure 145/63 O2 Sat by Pulse Oximetry 100 99 100 02/10/19 16:00 02/10/19 16:03 02/10/19 16:30 Temperature Pulse Rate 74 74 69 Respiratory Rate 13 10 L 14 Blood Pressure 149/68 O2 Sat by Pulse Oximetry 99 100 100 02/10/19 16:33 02/10/19 17:00 02/10/19 17:04 Temperature Pulse Rate 70 68 69 Respiratory Rate 8 L 9 L 8 L Blood Pressure 131/60 156/71 O2 Sat by Pulse Oximetry 98 96 99 02/10/19 17:30 02/10/19 17:33 02/10/19 18:00 Temperature Pulse Rate 69 66 67 Respiratory Rate 13 7 L 12 Blood Pressure 121/58 O2 Sat by Pulse Oximetry 99 100 100 02/10/19 18:03 Temperature Pulse Rate 65 Respiratory Rate 9 L Blood Pressure 125/61 O2 Sat by Pulse Oximetry 100 Laboratory Results - last 24 hr 02/10/19 02/10/19 02/10/19 14:30 14:30 14:30 WBC 8.39 RBC 4.38 L Hgb 14.2 Hct 42.0 MCV 95.9 MCH 32.4 H MCHC 33.8 RDW Std Deviation 16.9 H Plt Count 170 MPV 11.2 H Immature Gran % (Auto) 0.2 Neut % (Auto) 79.9 H Lymph % (Auto) 11.4 L [place] % (Auto) 7.4 Eos % (Auto) 1.0 Baso % (Auto) 0.1 Immature Gran # (Auto) 0.02 Neut # (Auto) 6.70 H Lymph # (Auto) 0.96 L [place] # (Auto) 0.62 H Eos # (Auto) 0.08 Baso # (Auto) 0.01 Specimen Type Sample Site pH pCO2 pO2 HCO3 Base Excess Oxyhemoglobin ABG O2 Sat (Calculated) ABG O2 Saturation ABG Carboxyhemoglobin ABG Methemoglobin Alex Test A-a O2 Difference Total Hemoglobin Lactate Blood Gas Modality FiO2 % Sodium Potassium Chloride Carbon Dioxide Anion Gap BUN Creatinine Estimated GFR/1.73 m2 BUN/Creatinine Ratio Glucose POC Glucose Calculated Osmolality Calcium Total Bilirubin AST ALT Alkaline Phosphatase Ammonia 30 Troponin T Total Protein Albumin Globulin Albumin/Globulin Ratio Plasma Lactate 1.3 Urine Source Urine Color Urine Turbidity Urine pH Ur Specific [place] Urine Protein Ur Glucose (Stick) Ur Ketones (Stick) Urine Blood Urine Nitrite Urine Bilirubin Urobilinogen Dipstick Urine Leukocytes Urine WBC (Auto) Urine RBC (Auto) U Epithel Cells (Auto) Urine Bacteria (Auto) 02/10/19 02/10/19 02/10/19 14:45 15:18 17:05 WBC RBC Hgb Hct MCV MCH MCHC RDW Std Deviation Plt Count MPV Immature Gran % (Auto) Neut % (Auto) Lymph % (Auto) [place] % (Auto) Eos % (Auto) Baso % (Auto) Immature Gran # (Auto) Neut # (Auto) Lymph # (Auto) [place] # (Auto) Eos # (Auto) Baso # (Auto) Specimen Type ARTERIAL Sample Site L BRACHIAL pH 7.38 pCO2 46 H pO2 67 HCO3 25.9 Base Excess 1.5 Oxyhemoglobin 91.3 L ABG O2 Sat (Calculated) 17.7 ABG O2 Saturation 94.0 L ABG Carboxyhemoglobin 2.10 ABG Methemoglobin 0.8 Alex Test NO A-a O2 Difference 25.0 Total Hemoglobin 13.8 Lactate 1.10 Blood Gas Modality ROOM AIR FiO2 % 21.0 Sodium 137 Potassium 5.1 D Chloride 96 L Carbon Dioxide 27 Anion Gap 14 BUN 34 H Creatinine 4.9 H Estimated GFR/1.73 m2 14 BUN/Creatinine Ratio 7 Glucose 196 H POC Glucose 226 H Calculated Osmolality 287 Calcium 8.9 Total Bilirubin 0.32 AST 12 ALT 12 Alkaline Phosphatase 92 Ammonia Troponin T Total Protein 7.3 Albumin 3.9 Globulin 3.4 Albumin/Globulin Ratio 1.1 Plasma Lactate Urine Source Urine Color Urine Turbidity Urine pH Ur Specific [place] Urine Protein Ur Glucose (Stick) Ur Ketones (Stick) Urine Blood Urine Nitrite Urine Bilirubin Urobilinogen Dipstick Urine Leukocytes Urine WBC (Auto) Urine RBC (Auto) U Epithel Cells (Auto) Urine Bacteria (Auto) 02/10/19 02/10/19 17:05 17:37 WBC RBC Hgb Hct MCV MCH MCHC RDW Std Deviation Plt Count MPV Immature Gran % (Auto) Neut % (Auto) Lymph % (Auto) [place] % (Auto) Eos % (Auto) Baso % (Auto) Immature Gran # (Auto) Neut # (Auto) Lymph # (Auto) [place] # (Auto) Eos # (Auto) Baso # (Auto) Specimen Type Sample Site pH pCO2 pO2 HCO3 Base Excess Oxyhemoglobin ABG O2 Sat (Calculated) ABG O2 Saturation ABG Carboxyhemoglobin ABG Methemoglobin Alex Test A-a O2 Difference Total Hemoglobin Lactate Blood Gas Modality FiO2 % Sodium Potassium Chloride Carbon Dioxide Anion Gap BUN Creatinine Estimated GFR/1.73 m2 BUN/Creatinine Ratio Glucose POC Glucose Calculated Osmolality Calcium Total Bilirubin AST ALT Alkaline Phosphatase Ammonia Troponin T 0.062 Total Protein Albumin Globulin Albumin/Globulin Ratio Plasma Lactate Urine Source CATH Urine Color YELLOW Urine Turbidity CLEAR Urine pH 7.0 Ur Specific [place] 1.005 Urine Protein 100 A Ur Glucose (Stick) 150 A Ur Ketones (Stick) NEGATIVE Urine Blood NEGATIVE Urine Nitrite NEGATIVE Urine Bilirubin NEGATIVE Urobilinogen Dipstick NORMAL Urine Leukocytes NEGATIVE Urine WBC (Auto) <10 Urine RBC (Auto) <10 U Epithel Cells (Auto) <10 Urine Bacteria (Auto) NEGATIVE Orders Category Date Time Status Nursing- Obtain EKG ONCE Care 02/10/19 14:22 Completed CHEST-1 VIEW [RAD] Stat Exams 02/10/19 14:[address] HEAD W/O CONTRAST [CT] Stat Exams 02/10/19 14:22 Completed ABG [RESP] Routine Lab 02/10/19 14:45 Completed AMMONIA [CHEM] Stat Lab 02/10/19 14:30 Completed CBC WITH ELECTRONIC DIFF [HEME] Stat Lab 02/10/19 14:30 Completed COMPREHENSIVE METABOLIC PANEL [CHEM] Stat Lab 02/10/19 17:05 Completed LACTATE, PLASMA [CHEM] Stat Lab 02/10/19 14:30 Completed TROPONIN T Stat Lab 02/10/19 17:05 Completed URINALYSIS [URINALYSIS] Stat Lab 02/10/19 17:37 Completed EKG [EKG] Stat Ther 02/10/19 14:22 Draft Result Diagrams: 02/10/19 14:30 02/10/19 17:05 - REASSESSMENT Reassessment #3 Status: other (Pt signed out to me by Dr. Alvarado, pending admission by Dr. Tolliver. Discussed case with Dr. Tolliver, Hospitalist, who will see and admit pt.) <Taylor Krishnan - Last Filed: 02/10/19 19:45> Departure <Gerry Alvarado - Last Filed: 02/10/19 19:23> - Departure Date of Disposition Decision: 02/10/19 Time of Disposition Decision: 19:44 Certified Medical Emergency: Emergent - Critical Care Note This patient required my direct & personal management of CC.: No <Taylor Krishnan - Last Filed: 02/10/19 19:45> - Departure DIAGNOSIS: Altered mental state Qualifiers: Altered mental status type: unspecified Qualified Code(s): R41.82 - Altered mental status, unspecified Disposition: ADMITTED INPATIENT 09 Condition: Fair Referrals and Follow-Ups: Dionicio Mckeon III, MD [Primary Care Provider] - Attestation - Physician/ DENICE Attestation Patient care was provided by Advanced Practice Provider:: No The physician spent face to face time with patient:: Yes Advanced Practice Provider documentation review:: Supervising physician onsite and consulted in the evaluation and care of this patient. The physician did have a face to face encounter with the patient. <Gerry Alvarado - Last Filed: 02/10/19 19:23> This chart was documented by the indicated scribe, (Abimbola Saldivar Scribe) and accurately reflects the services I performed and decisions made by me, Gerry Alvarado MD, as attested by the provider's signature.
--- NOTE | 2019-02-10 16:29 | Diag Imaging Result Doc PS360 ---
CT HEAD W/O CONTRAST - 02/10/2019 INDICATION: AMS COMPARISON: 02/09/2019 FINDINGS: There is no change from prior. IMPRESSION: No change from prior. This exam was performed using automated exposure control, adjustment of mA or kV according to patient size, and/or use of iterative reconstruction technique Electronically signed by Roshan De La Fuente 02/10/2019 4:26 PM
[2019-02-10 17:26] LABS: ALB/GLOB RATIO 1.1; ALBUMIN 3.9 g/dL (3.5-5.0); CALCIUM 8.9 mg/dL (8.8-10.2); CREATININE 4.9 mg/dL (0.7-1.2); POTASSIUM 5.1 mmol/L (3.5-5.1); TOTAL BILIRUBIN 0.32 mg/dL (0.20-1.00); TOTAL PROTEIN 7.3 g/dL (6.3-8.3)
[2019-02-10 18:34] LABS: URINE SOURCE CATH
[2019-02-10 18:55] LABS: BILIRUBIN URINE NEGATIVE (NEGATIVE); BLOOD URINE NEGATIVE (NEGATIVE); COLOR YELLOW; GLUCOSE URINE 150 mg/dL (NEGATIVE); KETONE URINE NEGATIVE (NEGATIVE); LEUKOCYTES URINE NEGATIVE (NEGATIVE); NITRITE URINE NEGATIVE (NEGATIVE); PROTEIN URINE 100 mg/dL (NEGATIVE); SP GRAVITY URINE 1.005; TURBIDITY URINE CLEAR (CLEAR); UROBILINOGEN URINE NORMAL (NORMAL)
[2019-02-10 18:58] LABS: UR EPITHELIAL CELLS <10 /HPF (<10); URINE BACTERIA NEGATIVE /HPF; URINE RBC <10 /HPF (<10); URINE WBC <10 /HPF (<10)
--- NOTE | 2019-02-10 20:47 | Diag Imaging Result Doc PS360 ---
CT THORAX W/O CONTRAST - 02/10/2019 INDICATION: pneumonia? COMPARISON: 02/10/2019, 12/16/2017 FINDINGS: There is significant bilateral gynecomastia. There is a left-sided dual-chamber pacemaker. Heart size is normal with no pericardial effusion. Lung volumes are severely low. There is mild nonspecific bibasilar atelectasis or infiltrate, worse at the left lower lobe. There is severe constipation throughout the transverse colon. Bony structures are intact. IMPRESSION: Numerous nonspecific findings. This exam was performed using automated exposure control, adjustment of mA or kV according to patient size, and/or use of iterative reconstruction technique Electronically signed by Roshan De La Fuente 02/10/2019 8:45 PM
[2019-02-10 20:50] LABS: HEMOGLOBIN A1C 5.8 % (4.8-6.0)
[2019-02-10 21:11] LABS: UR AMPHETAMINES QUAL NONE DETECTED (NONE DETECT); UR BARBITUATES QUAL NONE DETECTED (NONE DETECT); UR BENZODIAZEPIN QUAL NONE DETECTED (NONE DETECT); UR CANNABINOIDS QUAL NONE DETECTED (NONE DETECT); UR COCAINE QUAL NONE DETECTED (NONE DETECT); UR METHADONE QUAL NONE DETECTED (NONE DETECT); UR OPIATES QUAL PRESUMPTIVE POSITIVE (NONE DETECT); UR OXYCODONE QUAL NONE DETECTED (NONE DETECT); UR PCP QUAL NONE DETECTED (NONE DETECT)
[2019-02-11] MEDS ORDERED: ZOFRAN IV PRN (00:25)
[2019-02-11] MEDS ORDERED: TYLENOL PO PRN (00:25)
[2019-02-11] MEDS: HUMALOG SUBQ SCH ×6 (00:25→22:43)
[2019-02-11] MEDS: HEPARIN SUBQ SCH ×2 (00:52→13:38)
[2019-02-11 05:29] LABS: BASO# 0.03 X1000 (0.0-0.2); BASO% 0.4 % (0.0-0.8); EOS# 0.23 X1000 (0.0-0.7); EOS% 3.2 % (0.0-10.0); HEMATOCRIT 43.6 % (42.0-52.0); HEMOGLOBIN 14.6 g/dL (14.0-18.0); LYMPH# 1.32 X1000 (1.2-3.4); LYMPH% 18.1 % (20.5-51.1); MCH 32.6 PG (27-31); MCHC 33.5 g/dL (33-37); MCV 97.3 FL (81-99); MONO# 0.42 X1000 (0.11-0.59); MONO% 5.8 % (1.7-9.3); MPV 11.3 FL (7.4-10.4); NEUT# 5.29 X1000 (1.4-6.5); NEUT% 72.5 % (42.2-75.2); PLT 137 X1000 (130-400); RBC 4.48 XMIL (4.7-6.1); RDW 17.3 % (11.5-14.5); WBC 7.29 X1000 (4.8-10.8)
[2019-02-11] MEDS ORDERED: HEPARIN IV PRN (06:19)
[2019-02-11] MEDS ORDERED: NS 2,000 ML MISC PRN (06:19)
[2019-02-11] MEDS ORDERED: TIGHT: 0.2 ML/HR FOR DIALYSIS MISC PRN (06:19)
[2019-02-11 06:23] LABS: CREATININE 5.3 mg/dL (0.7-1.2)
[2019-02-11] MEDS ORDERED: NARCAN IV ONE (06:24)
[2019-02-11] MEDS ORDERED: VANCOMYCIN 750 MG in NS 150 ML IV ONE (06:27)
[2019-02-11] MEDS: ROCEPHIN 1 GM in NS 50 ML IV SCH (06:37)
[2019-02-11] MEDS ORDERED: DULCOLAX PO ONE (06:39)
[2019-02-11] MEDS ORDERED: DULCOLAX PR ONE (06:39)
[2019-02-11 07:38] LABS: CALCIUM 9.1 mg/dL (8.8-10.2); POTASSIUM 5.3 mmol/L (3.5-5.1)
--- NOTE | 2019-02-11 08:10 | HISTORY AND PHYSICAL ---
CHIEF COMPLAINT: Altered mental status. HISTORY OF PRESENT ILLNESS: Mr. Anna is an 88-year-old male who was brought via EMS. Had a caregiver at the bedside. Apparently had a fall yesterday and had a negative CT. Returned today with increased lethargy and mild confusion. He falls back asleep quickly during the interview; however, he is alert and oriented x3. He is very slow to respond. He is bilaterally blind. On initial workup in the emergency room, no source of lethargy could really be found. Urine toxicology screen was positive for opiates; however, that is one of his home medications. Chest x- ray showed bibasilar atelectasis or infiltrates with low lung volumes. CT of the chest without contrast was obtained. Unfortunately, it was not able to help differentiate again noting nonspecific atelectasis or infiltrates worse on the left lower lobe and the patient is severely constipated which was noted on the CT scan. He will be admitted for further evaluation and treatment. PAST MEDICAL HISTORY: 1. End-stage renal disease with Saturday, Saturday, Saturday hemodialysis. 2. Coronary artery disease. 3. Hypertension. 4. Diabetes mellitus. 5. Hyperlipidemia. 6. Osteoarthritis. 7. Blindness and mild cognitive dysfunction. PAST SURGICAL HISTORY: 1. Pacemaker right upper arm. 2. AV graft. 3. Cholecystectomy. 4. Debridement of right foot ulceration. SOCIAL HISTORY: Legally blind. No alcohol or tobacco. Quit drinking over 30 years ago. Ambulates with a cane. FAMILY HISTORY: Mother had diabetes mellitus and breast cancer. ALLERGIES: No known drug allergies. HOME MEDICATIONS: 1. Flomax 0.4 mg p.o. at bedtime. 2. Trazodone 75 mg at bedtime. 3. Amlodipine 10 mg p.o. at bedtime. 4. Simvastatin 10 mg p.o. at bedtime. 5. Humulin 70/30 12 units subcu at bedtime. 6. Aspirin 81 mg p.o. daily. 7. Levofloxacin 250 mg p.o. daily. 8. [place] 7.5 one to two q.6 p.r.n. 9. Lisinopril 20 mg p.o. daily. 10.Neurontin 200 mg p.o. at bedtime. REVIEW OF SYSTEMS: Fourteen point review of systems conducted with the patient. Pertinent positives listed above in the HPI. All other systems reviewed and found to be negative. PHYSICAL EXAMINATION: VITAL SIGNS: Temp 97.6 degrees, pulse 72, respirations 10, blood pressure 159/75, oxygen saturation 99% on room air. GENERAL: 88-year-old male, very slow to respond. Falls asleep during conversation. He is hard of hearing; however, he is oriented x3. HEENT: Head is atraumatic, normocephalic. Left eye has a cloudy appearance. Right eye is roughly 2 mm, nonreactive. He is able to visualize only shadows. Sclerae anicteric. Conjunctivae pale. Oral mucosa is dry. NECK: Supple. No JVD. No thyromegaly. Trachea is midline. No cervical lymphadenopathy. CARDIAC: S1, S2 appreciated. No murmurs, gallops, rubs. LUNGS: Clear to auscultation bilaterally. No rhonchi, wheeze, rales. Symmetrical rise and fall of respirations. ABDOMEN: Soft, nondistended, nontender. Bowel sounds present in all 4 quadrants. Normoactive. No pulsatile masses. EXTREMITIES: Right upper extremity AV fistula. Positive thrill and bruit. No cyanosis, clubbing or edema. NEUROLOGICAL: Lethargic. Oriented to person, place, situation. Disoriented to time. Bilateral blindness and hard of hearing. Very lethargic. Cranial nerve test could not be full observed; however, did not notice any focal or motor deficits. GENITOURINARY: No bladder distention. Otherwise deferred. DIAGNOSTIC DATA: Chest x-ray showed questionable infiltrates or atelectasis at bilateral bases. CT showed the same also noting low lung volumes and constipation throughout the transverse colon. CT of the head: No acute abnormality. LABORATORY DATA: WBC 8.39, hemoglobin 14, hematocrit 42, platelet count 170,000. ABG, pH 7.38, PCO2 46, PO2 67, bicarb 27.9. This was on room air. Sodium 137, potassium 5.1, chloride 96, carbon dioxide 27, BUN 34, creatinine 4.9, glucose 196. Urine: Unremarkable toxicology screen. Positive for opiates. ASSESSMENT AND PLAN: 1. Metabolic encephalopathy with differentials toxic encephalopathy. This could be related to patient's opiate medications; however, there were questionable infiltrates on the CT scan. Could be infectious. It could be related to his hemodialysis. At any rate, we will continue to monitor. Consult Dr. South for hemodialysis. We will treat for hospital acquired pneumonia. Blood cultures are pending. 2. End-stage renal disease with Saturday, Saturday, Saturday hemodialysis. As noted above, we will consult Dr. South. 3. Hypertension. Continue home medications. 4. Diabetes mellitus. Sliding scale insulin and fingerstick blood sugar. We will continue patient's long-acting insulin. 5. Hyperlipidemia. Continue home medications. Further recommendations per patient's clinical course. Dictated by MEGHAN Cordero for Ezekiel Tolliver MD I have performed a face to face diagnostic evaluation. Labs/ Xrays- reviewed; Exam- Chest- clear, CV- regular; Neuro- confused A/P- AMS/ Encephalopathy; ESRD- Admit, Neuro checks, Bld cultures, Dialysis. Dr. Tolliver cc: MEGHAN Cordero MD Reginald D. Gladish, MD Dr Ortega MTDD
[2019-02-11] MEDS: PRINIVIL PO SCH (08:30)
[2019-02-11] MEDS: ASPIRIN PO SCH (08:30)
[2019-02-11] MEDS ORDERED: VANCOMYCIN 1 GM/NS 1 GM/250 ML IVPB IV SCH (08:45)
--- NOTE | 2019-02-11 10:09 | NEPHROLOGY CONSULTATION ---
DATE: 02/11/2019 REASON FOR CONSULTATION: ESRD and vancomycin dosing. HISTORY OF PRESENT ILLNESS: Mr. Anna is an 88-year-old man who is known to us from the outpatient dialysis arena. He has cognitive impairment and blindness, and resides in a local snf facility. He came to the emergency room early on the after a fall. He had a small laceration to the cheek and had a CT of the head that was negative. He was sent back to the emergency room yesterday afternoon around 1 o'clock because of altered mental status. He is due for dialysis today. At the time of my exam, he will respond to me but did not answer my questions. He did not follow my commands. PAST MEDICAL HISTORY: As above. He also has hypertension, coronary artery disease, diabetes, hyperlipidemia. HOME MEDICATIONS: Include Flomax, trazodone, amlodipine, simvastatin, insulin, aspirin, levofloxacin, [place], lisinopril, Neurontin, Flomax. ALLERGIES: None. SOCIAL HISTORY: As above. FAMILY HISTORY: Otherwise noncontributory. REVIEW OF SYSTEMS: Otherwise noncontributory. PHYSICAL EXAMINATION: Vital Signs: Blood pressure 150/75, heart rate 73, respirations 12, afebrile. General: No acute distress. Skin: Warm and dry, with a small laceration on the right cheek. HEENT: Conjunctivae are pink. Pupils not examined. Oropharynx is clear. Neck: Supple. Neck veins are not distended. Heart: PMI nondisplaced. Regular rate and rhythm, with a systolic murmur and S4. Lungs: Have equal breath sounds. No crackles. Abdomen: Soft, nontender. Bowel sounds present. Extremities: No edema, clubbing, or cyanosis. IMPRESSION: Chronic kidney disease 5D. Moderate metabolic acidosis and hyperkalemia. Dialysis today using his routine outpatient dialysis prescription. His blood pressure is above target but we will reassess this after dialysis. I have provided a dosing regimen for his vancomycin pending culture results. cc: Gamal South MD
[2019-02-11] MEDS ORDERED: VANCOMYCIN 1 GM/NS 1 GM/250 ML IVPB IV ONE ×2 (14:00→17:00)
[2019-02-11] MEDS: ZOCOR PO SCH (20:30)
[2019-02-11] MEDS: NORVASC PO SCH (20:30)
[2019-02-11] MEDS: FLOMAX PO SCH (20:30)
[2019-02-11] MEDS: SANTYL OINT TOP SCH (20:31)
[2019-02-12] MEDS: HUMALOG SUBQ SCH ×5 (01:09→19:19)
[2019-02-12] MEDS: HEPARIN SUBQ SCH ×2 (05:49→19:18)
[2019-02-12] MEDS: ROCEPHIN 1 GM in NS 50 ML IV SCH (05:49)
[2019-02-12 06:55] LABS: BASO# 0.05 X1000 (0.0-0.2); BASO% 0.8 % (0.0-0.8); EOS# 0.15 X1000 (0.0-0.7); EOS% 2.3 % (0.0-10.0); HEMATOCRIT 45.4 % (42.0-52.0); HEMOGLOBIN 14.9 g/dL (14.0-18.0); LYMPH# 1.23 X1000 (1.2-3.4); LYMPH% 18.6 % (20.5-51.1); MCH 32.4 PG (27-31); MCHC 32.8 g/dL (33-37); MCV 98.7 FL (81-99); MONO# 0.71 X1000 (0.11-0.59); MONO% 10.7 % (1.7-9.3); MPV 11.3 FL (7.4-10.4); NEUT# 4.48 X1000 (1.4-6.5); NEUT% 67.6 % (42.2-75.2); PLT 139 X1000 (130-400); WBC 6.62 X1000 (4.8-10.8)
[2019-02-12 07:08] LABS: ALBUMIN 3.5 g/dL (3.5-5.0); CREATININE 3.9 mg/dL (0.7-1.2); POTASSIUM 5.1 mmol/L (3.5-5.1)
[2019-02-12] MEDS: PRINIVIL PO SCH (10:45)
[2019-02-12] MEDS: ASPIRIN PO SCH (10:45)
[2019-02-12] MEDS ORDERED: ZYPREXA ZYDIS PO ONE (13:27)
[2019-02-12] MEDS: HALDOL IM PRN ×2 (13:43→20:56)
--- NOTE | 2019-02-12 13:49 | NEPHROLOGY PROGRESS NOTE ---
DATE: 02/12/2019 TIME SEEN: 0700. SUBJECTIVE: Mr. Anna is resting quietly in bed. Head of the bed is elevated. He has a sitter at the bedside. States that he is feeling much better. He is aware to person and to place. OBJECTIVE: His most recent vital signs, his last temperature 98.4 degrees, blood pressure 169/63, heart rate 89, respirations 18. He is on room air. Last recorded saturation 96%. He has had 494 in and 2300 out with 2 L on dialysis. Labs: Sodium is 137, potassium 5.1, chloride is 96, CO2 23, BUN 24, creatinine 3.9, glucose is 140, he has an anion gap of 18, his calcium is 9, phosphorus 6, albumin 3.5. White count 6.62, hemoglobin 14.9, hematocrit 45.4, platelet count 139,000. Physical Examination: General: This is an 88-year-old, male. He is currently resting quietly in bed. He is in no acute distress. His skin is warm and dry. HEENT: Normocephalic, atraumatic. Conjunctivae are pale pink. He has GARRY. Mucous membranes dry. Neck: Supple. Trachea midline. No evidence of JVD. Cardiovascular: Regular rate and rhythm without murmur or gallop. Lungs: Clear to auscultation bilaterally. Equal excursion. Abdomen: Soft, nontender. Positive bowel sounds. Genitourinary: Not inspected. Minimal void with dialysis assist. Extremities: Have no edema. No clubbing or cyanosis. He has a dressing on his right foot. Neurological: Alert to person and to place. ASSESSMENT AND PLAN: 1. Chronic kidney disease stage 5D. The patient had his routine dialysis treatment yesterday. Tolerated this well. No indications for intervention today. 2. Electrolytes, acid-base balance, and anemia. These are all acceptable. 3. Altered mental status. This has improved. Followed by the primary care. I would like to thank you for allowing us to follow with this patient. Dictated by MEGHAN Araujo for Gamal South MD Face to face encounter, data reviewed, discussed with Marla Yates on 02/12/19. I agree with the above assessment and plan of care. cc: MEGHAN Araujoh, MD [facility]
[2019-02-12] MEDS ORDERED: LEVAQUIN PO SCH (20:00)
[2019-02-12] MEDS: ZOCOR PO SCH (20:56)
[2019-02-12] MEDS: NORVASC PO SCH (20:56)
[2019-02-12] MEDS: FLOMAX PO SCH (20:56)
[2019-02-12] MEDS ORDERED: MIRALAX PO SCH (21:00)
--- NOTE | 2019-02-12 21:34 | PROGRESS NOTE ---
DATE: 02/12/2019 INTERVAL HISTORY: No acute events overnight. The patient was slightly agitated and was putting out his IV lines, for which I have ordered haloperidol. SUBJECTIVE: Patient is sleepy at the moment, however, follows simple commands, like opening mouth, raising both arms and legs. He is denying any complaints currently. VITALS: Temperature 97.8 degrees, pulse 92, respiratory rate 18, blood pressure 180/73. He is saturating 99% room air. PHYSICAL EXAMINATION: General: Does not appear in any acute distress. HEENT: Oral cavity is moist. Lungs: Air entry bilaterally equal. No wheeze, rhonchi, crackles. Cardiovascular: S1, S2 normal. No murmur or gallop. He does have AV fistula on right arm. Abdomen: Soft, nontender. Extremities: No lower extremity edema. Neurologic: He is drowsy. He is following simple commands though. LABS: Suggestive of normal hemoglobin, hematocrit, and platelet count, elevated BUN and creatinine in the setting of chronic kidney disease stage 5, and hyperphosphatemia. MICROBIOLOGY: Blood culture no growth to date. IMAGING: Chest CT on admission had numerous nonspecific findings and suspected atelectasis. ASSESSMENT AND PLAN: 1. Acute encephalopathy with suspected bilateral lower lobe pneumonia. I will change his antibiotics to oral levofloxacin and would potentially stop it soon since my suspicion for pnemonia is low. His encephalopathy appears to be improving. Blood culture has not detected any growth. I will continue to withhold any opiate medications. I will give him haloperidol as needed. 2. Chronic kidney disease stage 5 on Saturday, Saturday, Saturday hemodialysis. He received his dialysis yesterday. Dr. South on board. 3. Essential hypertension. Continue home amlodipine, aspirin, and I will increase his lisinopril dose. 4. Diabetes mellitus. Continue fingersticks and sliding scale insulin, and I will also continue his simvastatin for hyperlipidemia. Disposition: If the patient continues to do better my plan is to discharge him back to where he came from after dialysis tomorrow. Plan of care discussed with the patient. All of his questions have been answered. cc: MD JUAN MANUEL Ayala
[2019-02-13] MEDS: HUMALOG SUBQ SCH ×2 (03:33→07:10)
[2019-02-13] MEDS: SANTYL OINT TOP SCH (03:34)
[2019-02-13] MEDS: HALDOL IM PRN (03:39)
[2019-02-13] MEDS: HEPARIN SUBQ SCH ×2 (03:40→05:54)
[2019-02-13] MEDS ORDERED: TIGHT: 0.2 ML/HR FOR DIALYSIS MISC PRN (06:56)
[2019-02-13] MEDS ORDERED: HEPARIN IV PRN (06:56)
[2019-02-13] MEDS ORDERED: NS 2,000 ML MISC PRN (06:56)
[2019-02-13 06:59] LABS: BASO# 0.02 X1000 (0.0-0.2); BASO% 0.2 % (0.0-0.8); EOS# 0.19 X1000 (0.0-0.7); EOS% 1.9 % (0.0-10.0); HEMATOCRIT 43.1 % (42.0-52.0); HEMOGLOBIN 14.3 g/dL (14.0-18.0); LYMPH# 0.96 X1000 (1.2-3.4); LYMPH% 9.5 % (20.5-51.1); MCH 32.1 PG (27-31); MCHC 33.2 g/dL (33-37); MCV 96.6 FL (81-99); MONO# 0.64 X1000 (0.11-0.59); MONO% 6.3 % (1.7-9.3); NEUT% 82.1 % (42.2-75.2); PLT 162 X1000 (130-400); RBC 4.46 XMIL (4.7-6.1); RDW 16.7 % (11.5-14.5); WBC 10.11 X1000 (4.8-10.8)
[2019-02-13 07:38] LABS: ALBUMIN 3.8 g/dL (3.5-5.0); CALCIUM 9.3 mg/dL (8.8-10.2); PHOSPHORUS 6.3 mg/dL (2.7-4.5); POTASSIUM 5.2 mmol/L (3.5-5.1)
[2019-02-13 07:50] LABS: CREATININE 5.5 mg/dL (0.7-1.2)
[2019-02-13] MEDS ORDERED: PRINIVIL PO SCH (09:00)
--- NOTE | 2019-02-13 15:19 | DISCHARGE SUMMARY ---
ADMISSION DATE: 02/11/2019 DISCHARGE DATE: 02/13/2019 DISCHARGE DISPOSITION: [facility]. DISCHARGE CONDITION: The patient is hemodynamically stable. He is following simple commands, opening mouth, raising both of his arms and legs. Does not appear in any acute distress. He is in dialysis right now. I discussed his condition and discharge plan with the patient's son. I was not able to reach out to daughter. DISCHARGE DIAGNOSES: 1. Acute encephalopathy. 2. Bilateral lower lobe pneumonia. 3. Mild cognitive impairment and legal blindness. 4. Acute encephalopathy in the setting of pneumonia, as well as use of multiple sedative medications. 5. Essential hypertension. OTHER DIAGNOSES: 1. End-stage renal disease on Saturday, Saturday, Saturday hemodialysis. 2. History of coronary artery disease. 3. Essential hypertension. 4. History of diabetes mellitus. However, his hemoglobin A1c was less than 6, so his insulin was discontinued. 5. Hyperlipidemia. 6. Osteoarthritis. 7. Status post pacemaker. DISCHARGE MEDICATIONS: Amlodipine 10 mg at nighttime, tamsulosin 0.4 mg at night, simvastatin 10 mg at nighttime, aspirin 81 mg daily, trazodone 25 mg at nighttime, levofloxacin 500 mg every 48 hours 2 tablets, MiraLAX 17 g b.i.d., lisinopril 40 mg daily. CONSULTATION AT THE TIME OF HOSPITAL ADMISSION: Aromatherapist, Dr. South. VITALS AT THE TIME OF DISCHARGE: Temperature 98.5 degrees, pulse 83, respiratory rate 16, blood pressure 150/56, saturating 95% on room air. PHYSICAL EXAMINATION: General: Patient does not appear in any acute distress. HEENT: Oral cavity is moist. He does have conjunctival xerosis on the left side. He has no perception of light on the right eye. Lungs: Air entry bilaterally equal. No wheeze, rhonchi or crackles. Heart: S1, S2 normal. No murmur or gallop. Abdomen: Soft, nontender. Extremities: He has a right arm AV fistula. No bilateral lower extremity edema. Neurologic: He is alert. He is answering all questions appropriately. MICROBIOLOGY DURING HOSPITAL ADMISSION: Blood culture did not have any growth. SIGNIFICANT IMAGING DURING HOSPITAL ADMISSION: Chest x-ray had no change from prior. It did have bibasilar atelectasis and/or infiltrate. Head CT on admission did not have any acute abnormalities. Chest CT had bilateral gynecomastia, left-sided dual-chamber pacemaker. There was no pericardial effusion. There was mild nonspecific bibasilar atelectasis or infiltrate, which was worse in the left lower lobe, and he also had severe constipation. HOSPITAL COURSE SUMMARY: Mr. Anna is an 88-year-old man, who had a fall the day before prior to presentation and had negative head CT. However, he was sent back to emergency room again with increasing lethargy and mild confusion. Urine toxicology was positive for opiates and he was listed to be taking trazodone, Neurontin, [place]. It was felt that his altered mental status could be related to multiple sedating medication use. Chest CT had also detected bilateral lower lobe infiltrates, especially on the left side. The patient was started on intravenous antibiotics, vancomycin and Zosyn, which was changed to p.o. levofloxacin. On the next day of hospital admission, his mental status has improved. He was alert and following all simple commands. He received his routine dialysis Saturday, Saturday, Saturday. At the time of discharge, he appeared to be at baseline. He was discharged home on p.o. levofloxacin. His insulin was also discontinued considering his hemoglobin A1c was very low, though it may not be entirely reliable in case of end-stage renal disease to avoid hypoglycemia, and his trazodone dose was decreased, as well as his [place] and Neurontin were discontinued. I called patient's son and discussed him with him about his hospital course, and had answered all of his questions. TIME SPENT: More than 30 minutes were spent in discharging this patient. I called patient's son and informed him about patient's clinical condition and answered all of his questions. cc: MD JUAN MANUEL Ayala
[2019-02-13 15:52] VITALS: BP 168/76
--- NOTE | 2019-02-13 17:01 | NEPHROLOGY PROGRESS NOTE ---
DATE: 02/13/2019 SUBJECTIVE: He ate his breakfast. He is awake and alert, no complaints. OBJECTIVE: Vital Signs: Blood pressure 152/56, heart rate 83, respirations 16, afebrile. General: No acute distress. Skin: Warm and dry. HEENT: Conjunctivae are pink. Neck: Neck veins are not distended. Heart: Regular. Lungs: Equal. Abdomen: Benign. Extremities: Have no edema. IMPRESSION: Chronic kidney disease 5D. Today is his routine dialysis day. We will dialyze him using his routine outpatient dialysis prescription. Okay for discharge from my perspective. cc: Gamal South MD
== END 2019-02-13 17:17 ==
LOC: SUPCPDRO → EDIPHOLD 13:39 → ED 13:39 → SUATTDRO 02-11 00:37 → 4N 02-11 15:50
PROVIDERS: ATTEND Internal Medicine
CPT/HCPCS: 51701; 70450; 71010; 71045; 71250; 80048; 80053; 80069; 80101; 80301; 80307; 80324; 80345; 80346; 80353; 80358; 80361; 80365; 81001; 82140; 82805; 82948; 83036; 83605; 83992; 84443; 84484; 85025; 87040; 93005; 96365; 96366; 96372; 96375; 99285; A9270; G0431; G0434; G0479; G0480; J0696; J1630; J1644; J1815; J2310; J3370; J7030; P9612; XXXXX

== ENCOUNTER 2019-10-18 12:14 | Inpatient (IN) ==
--- NOTE | 2019-10-18 13:04 | PROVIDER DOCUMENTATION ---
This chart was entered by Ck Duque Scribe, acting as scribe for Freddy Jacobo MD. HPI-Musculoskeletal Pain/Inj - GENERAL Source: patient, EMS - HX OF PRESENT ILLNESS-MUSKULOSKELTAL Quality of Pain: reports: aching Severity in ED: mild Onset/Duration: unsure Timing: still present Modifying Factors: improves with: nothing Locality of Occurance: Other (care home) Similar Symptoms Previously?: No Recently seen or treated by another doctor?: No - FALL INJURY Location of Pain/Injury: reports: lower extremity (RT ankle) Pain Radiation: reports: no radiation Reason for Fall: reports: unknown Symptoms prior to fall:: reports: none Loss of Consciousness: no loss of consciousness Injury Associated Symptoms: denies: chest pain, nausea, vomiting - LOWER EXTREMITY PAIN/INJURY Lower Extremities Pain: ankle: right Context / Method of Injury: reports: unknown, other (care home did x-ray pt has distal tibia fracture /put a air stent on @ care home) Associated Symptoms: reports: denies symptoms - UPPER EXTREMITY PAIN/INJURY Extremities Pain Location: arm: right (shunt very swollen pulsatile ) Context / Method of Injury: reports: unknown Associated Symptoms: reports: denies symptoms <Freddy Jacobo - Last Filed: 10/18/19 15:53> <Camilo Velasquez - Last Filed: 10/18/19 16:29> - GENERAL Stated Complaint: POSS TIBIA FX Time Seen by Provider: 10/18/19 12:19 - HX OF PRESENT ILLNESS-MUSKULOSKELTAL Nature of Presenting Problem: 89 yom presents to the ed v/a ems w/ c/o RT ankle pain. pt has hx of renal failure. ems reports being called for the Rt ankle pain staff reported distal tibia fracture. (Freddy Jacobo) Review of Systems - Adult - REVIEW OF SYSTEMS - ADULT Constitutional: denies: chills, fever Eyes: reports: no symptoms reported Ears, Nose, Mouth & Throat: denies: sinus problem, throat pain Cardiovascular: reports: no symptoms reported Respiratory: reports: no symptoms reported Gastrointestinal: denies: diarrhea, nausea, vomiting Genitourinary: reports: no symptoms reported Musculoskeletal: reports: see HPI. denies: back pain, neck pain Integumentary: reports: no symptoms reported Neurological: reports: no symptoms reported Psychiatric: reports: no symptoms reported Endocrine: reports: no symptoms reported Hematologic/Lymphatic: reports: no symptoms reported Allergic/Immunologic: reports: no symptoms reported All Other Systems: Reviewed and Negative <Freddy Jacobo - Last Filed: 10/18/19 15:53> Past History - Adult - PAST MEDICAL HISTORY-ADULT Review of Records: reports: Old Records Reviewed, Nursing Assessment Review, Medications Reviewed, Social history reviewed & non-contributory. 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) - PRIOR SURGERIES/PROCEDURES Surgical/Procedure History: reports: pacemaker, indwelling device (dialysis graft) - IMMUNIZATION STATUS Childhood Immunizations: See Nurse Assessment Flu Vaccine: See Nurse Assessment - FAMILY HISTORY Family History: reviewed, not pertinent - SOCIAL HISTORY Smoking: denies Substance Use: denies Living Situation: care facility <Freddy Jacobo - Last Filed: 10/18/19 15:53> Physical Exam-Injury Related - Physical Exam-Injury Related Initial Vital Signs Reviewed: Yes General Appearance: mild distress, lethargic (open to voice) Eyes: other (eyes closed) Respiratory: chest non-tender, lungs clear, normal breath sounds Cardiovascular: systolic murmur (2/6) Male Genitalia: deferred Rectal Exam: deferred Hemoccult Exam: deferred Extremity: other (Rt ankle mild-tender mild -swollen Rt arm fistula in area is size of racket ball pulsatile) - Glascow Coma Score Best Eye Response ([place]): (3) open to voice Best Motor Response ([place]): (6) obeys commands <Freddy Jacobo - Last Filed: 10/18/19 15:53> Progress - PLAN OF CARE/RESULTS Result Diagrams: 10/18/19 14:35 10/18/19 14:35 - REASSESSMENT Reassessment #1 Time Reassessed: 14:51 Status: other (waiting for hospitalists to call back) - XRAY 1 XRAY Study: Chest Impression: See EMR Report (EXAM: CHEST-PORTABLE INDICATION: sob TECHNIQUE: One view COMPARISON: 02/10/2019 FINDINGS: There is stable elevation of the left hemidiaphragm. There is suggestion of mild atelectasis at the left lung base. The lungs are grossly clear, otherwise. There is no discrete pleural fluid collection or pneumothorax. The cardiac silhouette is borderline prominent but stable. Central vasculature is unremarkable. There is a stable pacemaker. IMPRESSION: Stable elevation of the left hemidiaphragm and suggestion of mild left basilar atelectasis. Electronically signed by Dionicio Moseley 10/18/2019 2:25 PM 10/18/19 1425 Interpreting Physician: Dionicio Moseley MD Dictated Date/Time: 10/18/19 142 cc: Freddy Jacobo MD; Dionicio Mckeon III, MD) 2 XRAY Study: Ankle Impression: See EMR Report (EXAM: ANKLE COMPLETE RIGHT INDICATION: fall TECHNIQUE: 3 views COMPARISON: None. FINDINGS: There is an oblique fracture through the distal shaft of the tibia and there is a comminuted oblique fracture through the distal shaft of the fibula. There is anterior angulation of the distal fracture fragments. No other discrete fracture is identified. There is prominent soft tissue edema around the fractures. IMPRESSION: Fractures of the distal tibial and fibular shafts. Electronically signed by Dionicio Moseley 10/18/2019 2:23 PM 10/18/19 1423 Interpreting Physician: Dionicio Moseley MD Dictated Date/Time: 10/18/19 1422 cc: Freddy Jacobo MD; Dionicio Mckeon III, MD) - CONSULTS/PCP/HOSPITALIST Notification #1 *Consult/PCP/Hospitalist*: consult w/ dr. modi Time Discussed: 14:35 (talk to hospitalists for admission) #2 Consult: consult w/ hospitalists Time Discussed: 15:47 Consult Disposition: Admit - CHANGE OF SHIFT REPORT (ED Provider) 1 Report Given and Care Transferred to:: [facility] Time of Transfer: 13:03 Items Pending: Labs, Ultrasound Results, Physician Consult/Arrival <Freddy Jacobo - Last Filed: 02/02/20 15:53> - PLAN OF CARE/RESULTS Result Diagrams: 10/18/19 14:35 10/18/19 14:35 - REASSESSMENT Reassessment #2 Status: unchanged ([facility] resident with baseline dementia, presnts with Tib?Fib fracture RLE, underlying Renal failure, on dialysis, ? anurysm AV shunt, confirmed on bedside US, vascural surgery (Dr monsivais) consulted at bed side, recommends outpatient eval after fracture is addressed. Spoke to Dr Hunter accepted patient admited to hospitalist splint applied.) <EvaCamilo Boone - Last Filed: 10/18/19 16:29> - PLAN OF CARE/RESULTS Progress/Plan/Lab Results: Vital Signs - 8 hr 10/18/19 12:22 Temperature 97.7 F Pulse Rate 72 Respiratory Rate 18 Blood Pressure 145/67 O2 Sat by Pulse Oximetry 97 Laboratory Results - last 24 hr 10/18/19 10/18/19 10/18/19 14:35 14:35 14:35 WBC 11.00 H RBC 3.30 L Hgb 10.4 L Hct 32.5 L MCV 98.5 MCH 31.5 H MCHC 32.0 L RDW Std Deviation 15.6 H Plt Count 188 MPV 10.7 H Immature Gran % (Auto) 0.2 Neut % (Auto) 83.7 H Lymph % (Auto) 8.2 L [place] % (Auto) 6.1 Eos % (Auto) 1.6 Baso % (Auto) 0.2 Immature Gran # (Auto) 0.02 Neut # (Auto) 9.21 H Lymph # (Auto) 0.90 L [place] # (Auto) 0.67 H Eos # (Auto) 0.18 Baso # (Auto) 0.02 PT INR PTT (Actin FS) Sodium 132 L Potassium 5.9 H Chloride 94 L Carbon Dioxide 24 L Anion Gap 14 BUN 63 H Creatinine 6.5 H Estimated GFR/1.73 m2 10 BUN/Creatinine Ratio 10 Glucose 345 H Calculated Osmolality 296 Calcium 10.0 Phosphorus 4.0 Magnesium 2.2 Total Bilirubin 0.27 AST 18 ALT 24 Alkaline Phosphatase 106 Aio-I-Shdpcctvxco Pept 3177 H Total Protein 7.4 Albumin 3.3 L Globulin 4.1 Albumin/Globulin Ratio 0.8 10/18/19 14:35 WBC RBC Hgb Hct MCV MCH MCHC RDW Std Deviation Plt Count MPV Immature Gran % (Auto) Neut % (Auto) Lymph % (Auto) [place] % (Auto) Eos % (Auto) Baso % (Auto) Immature Gran # (Auto) Neut # (Auto) Lymph # (Auto) [place] # (Auto) Eos # (Auto) Baso # (Auto) PT 13.5 INR 1.01 PTT (Actin FS) 34.4 Sodium Potassium Chloride Carbon Dioxide Anion Gap BUN Creatinine Estimated GFR/1.73 m2 BUN/Creatinine Ratio Glucose Calculated Osmolality Calcium Phosphorus Magnesium Total Bilirubin AST ALT Alkaline Phosphatase Tze-U-Rlzgdovvmqs Pept Total Protein Albumin Globulin Albumin/Globulin Ratio Orders Category Date Time Status OCL Splint DIRECTED Care 10/18/19 12:23 Active Saline Loc NOW Care 10/18/19 12:23 Active ANKLE COMPLETE RIGHT [RAD] Stat Exams 10/18/19 12:19 Completed CHEST-PORTABLE [RAD] Stat Exams 10/18/19 12:19 Completed CBC WITH ELECTRONIC DIFF [HEME] Stat Lab 10/18/19 14:35 Completed COMPREHENSIVE METABOLIC PANEL [CHEM] Stat Lab 10/18/19 14:35 Completed MAGNESIUM [CHEM] Stat Lab 10/18/19 14:35 Completed PRO B-NATRIURETIC PEPTIDE Stat Lab 10/18/19 14:35 Completed PROTIME WITH INR [COAG] Stat Lab 10/18/19 14:35 Completed PTT [COAG] Stat Lab 10/18/19 14:35 Completed phos [PHOSPHORUS] [CHEM] Stat Lab 10/18/19 14:35 Completed Hydromorphone [Dilaudid] Med 10/18/19 15:58 Discontinued 1 mg IV NOW ONE Ondansetron [Zofran] Med 10/18/19 15:58 Discontinued 4 mg IV NOW ONE Hemodialysis Access U/S R Arm Routine Ther 10/18/19 Completed Departure - Departure Date of Disposition Decision: 10/18/19 Certified Medical Emergency: Emergent <Freddy Jacobo - Last Filed: 10/18/19 15:53> - Departure Time of Disposition Decision: 15:28 Certified Medical Emergency: Emergent - Critical Care Note This patient required my direct & personal management of CC.: No <Camilo Velasquez - Last Filed: 10/18/19 16:29> - Departure DIAGNOSIS: Closed fracture of right fibula and tibia, Renal failure, AV shunt malfunction Disposition: [facility]UTE [facility]ARE [facility] 02 Condition: Stable Referrals and Follow-Ups: Dionicio Mckeon III, MD [Primary Care Provider] - Attestation - Physician/ DENICE Attestation Patient care was provided by Advanced Practice Provider:: No The physician spent face to face time with patient:: Yes Advanced Practice Provider documentation review:: Supervising physician onsite and consulted in the evaluation and care of this patient. The physician did have a face to face encounter with the patient. <Freddy Jacobo - Last Filed: 10/18/19 15:53> This chart was documented by the indicated scribe, (Ck Duque, Scribe) and accurately reflects the services I performed and decisions made by me, Freddy Jacobo MD, as attested by the provider's signature.
--- NOTE | 2019-10-18 14:26 | Diag Imaging Result Doc PS360 ---
EXAM: ANKLE COMPLETE RIGHT INDICATION: fall TECHNIQUE: 3 views COMPARISON: None. FINDINGS: There is an oblique fracture through the distal shaft of the tibia and there is a comminuted oblique fracture through the distal shaft of the fibula. There is anterior angulation of the distal fracture fragments. No other discrete fracture is identified. There is prominent soft tissue edema around the fractures. IMPRESSION: Fractures of the distal tibial and fibular shafts. Electronically signed by Dionicio Moseley 10/18/2019 2:23 PM
--- NOTE | 2019-10-18 14:27 | Diag Imaging Result Doc PS360 ---
EXAM: CHEST-PORTABLE INDICATION: sob TECHNIQUE: One view COMPARISON: 02/10/2019 FINDINGS: There is stable elevation of the left hemidiaphragm. There is suggestion of mild atelectasis at the left lung base. The lungs are grossly clear, otherwise. There is no discrete pleural fluid collection or pneumothorax. The cardiac silhouette is borderline prominent but stable. Central vasculature is unremarkable. There is a stable pacemaker. IMPRESSION: Stable elevation of the left hemidiaphragm and suggestion of mild left basilar atelectasis. Electronically signed by Dionicio Moseley 10/18/2019 2:25 PM
[2019-10-18 14:55] LABS: BASO# 0.02 X1000 (0.0-0.2); BASO% 0.2 % (0.0-0.8); EOS# 0.18 X1000 (0.0-0.7); EOS% 1.6 % (0.0-10.0); HEMATOCRIT 32.5 % (42.0-52.0); HEMOGLOBIN 10.4 g/dL (14.0-18.0); IMM GRAN# 0.02 X1000 (0.0-0.04); IMM GRAN% 0.2 % (0.0-0.5); LYMPH% 8.2 % (20.5-51.1); MCH 31.5 PG (27-31); MCV 98.5 FL (81-99); MONO# 0.67 X1000 (0.11-0.59); MONO% 6.1 % (1.7-9.3); MPV 10.7 FL (7.4-10.4); NEUT# 9.21 X1000 (1.4-6.5); NEUT% 83.7 % (42.2-75.2); PLT 188 X1000 (130-400); RDW 15.6 % (11.5-14.5)
[2019-10-18 15:02] LABS: INR 1.01; PROTIME 13.5 Seconds (11.0-16.0)
[2019-10-18 15:03] LABS: PTT 34.4 Seconds (22.3-41.8)
[2019-10-18 15:19] LABS: ALB/GLOB RATIO 0.8; ALBUMIN 3.3 g/dL (3.5-5.0); CREATININE 6.5 mg/dL (0.7-1.2); MAGNESIUM 2.2 mg/dL (1.5-2.7); POTASSIUM 5.9 mmol/L (3.5-5.1); TOTAL BILIRUBIN 0.27 mg/dL (0.20-1.00); TOTAL PROTEIN 7.4 g/dL (6.3-8.3)
[2019-10-18] MEDS ORDERED: ZOFRAN IV ONE (15:58)
[2019-10-18] MEDS ORDERED: DILAUDID IV ONE (15:58)
[2019-10-18] MEDS ORDERED: NORFLEX IV ONE (16:25)
--- NOTE | 2019-10-18 17:11 | HISTORY AND PHYSICAL ---
HISTORY OF PRESENT ILLNESS: This is an 89-year-old black male. He lives at [facility]. We think he had a mechanical fall this morning and suffered a right leg fracture. His ankle x- ray showed fracture of the distal tibia and fibula shafts. He just had a toe amputation on that foot about a month and a half ago. PAST MEDICAL HISTORY: 1. He has underlying dementia. He has had this for years. 2. End-stage renal disease. He gets dialysis Mondays, Wednesdays, and Fridays. He has an AV graft in the right cubital fossa. 3. Coronary artery disease. 4. Hypertension. 5. Diabetes mellitus. 6. Hyperlipidemia. 7. Osteoarthritis. 8. Blindness and cognitive dysfunction. 9. Alzheimer's dementia. 10. Benign prostatic hypertrophy with lower obstructive symptoms and he is on Flomax already. PAST SURGICAL HISTORY: 1. Pacemaker in the right arm. 2. AV graft, right arm. 3. Cholecystectomy. 4. He has had debridement of his right foot and a toe amputation I believe the last time he was here. The last time he was admitted was in January of 2019 for altered mental status. SOCIAL HISTORY: Legally blind. No alcohol or tobacco. Quit drinking over years 30 years ago. I think he can still ambulate with a cane. FAMILY HISTORY: Mother and father with diabetes. Mother had breast cancer. ALLERGIES: No known drug allergies. CURRENT MEDICATIONS: He is on amlodipine 10 mg at bedtime, aspirin 81 mg a day, Prinivil 40 mg a day. They had him on Levaquin 500 mg p.o. daily,; I am assuming that is for urinary tract infection. He is on MiraLAX 17 g p.o. b.i.d., Zocor 10 mg at bedtime, Flomax 0.4 mg at bedtime, and trazodone 25 mg at bedtime. REVIEW OF SYSTEMS: Not able to get much review of systems from him. According to records, he has been eating okay. No weight loss. No fever or chills. He is legally blind. HEENT: Has not had any trauma to his neck or head that we can visualize or appreciate. Respiratory: No increased work of breathing or dyspnea. Cardiovascular: No chest pain or tachy palpitations have been observed. Endocrinologic/Hematologic: No significant history. Musculoskeletal/Neurologic: Just general weakness and now a tib-fib fracture in the right lower leg. PHYSICAL EXAMINATION: GENERAL: In the emergency room, his son was at the bedside. VITAL SIGNS: Temp 97.7 degrees, pulse 72, respirations 18, blood pressure 145/67. Weight 166 pounds. Height 5 feet 10 inches. HEENT: Pupils are equal and round. NECK: CVP less than 6 cm. LUNGS: Clear in all lung booth. CARDIOVASCULAR: Regular rhythm and rate without murmur or S3. ABDOMEN: Soft, nondistended, nontender. SKIN: Warm and dry. LABORATORY: White blood cell count 11,000, hematocrit is 32, platelet count 188,000. Sodium 132, potassium 5.9, chloride 94, BUN 63, creatinine 6.5, blood sugar 345, magnesium 2.2, alkaline phosphatase 106, albumin 3.3. ProTime 13.5, PTT 34. Ankle x-ray revealed fracture of the distal tibial and fibular shafts. Chest x-ray: Stable elevation of left hemidiaphragm, suggestion of left basilar atelectasis. ASSESSMENT AND PLAN: 1. Tibia-fibula fracture. Orthopedic involved. I suspect he will need open reduction internal fixation. 2. Chronic kidney disease stage 5D. He is on hemodialysis, has been on for years. His electrolytes and acid base look appropriate. Bicarb is 24. 3. Chronic anemia. Blood counts look stable. He has normocytic anemia. Hematocrit 32, hemoglobin 10. 4. Diabetes mellitus type 2. We will get pattern sugars. Put him on sliding scale. 5. He has a history of coronary artery disease. I do not see any evidence of active ischemia. 6. History of hypertension. 7. History of hyperlipidemia. 8. He has blindness. 9. He has dementia. cc: MD JUAN MANUEL Conway
[2019-10-18] MEDS: NS 1,000 ML IV SCH (19:19)
[2019-10-18] MEDS ORDERED: TYLENOL PO PRN (19:19)
[2019-10-18] MEDS: NORVASC PO SCH (20:43)
[2019-10-18] MEDS: FLOMAX PO SCH (20:43)
[2019-10-18] MEDS: LEVAQUIN PO SCH (20:43)
[2019-10-18] MEDS: PRILOSEC PO SCH (20:43)
[2019-10-18] MEDS: MORPHINE IV PRN (20:44)
[2019-10-18] MEDS: MIRALAX PO SCH (20:53)
[2019-10-18 22:21] LABS: INR 1.03; PROTIME 13.6 Seconds (11.0-16.0)
[2019-10-19] MEDS: ZOFRAN IV PRN ×2 (00:17→21:11)
[2019-10-19] MEDS: MORPHINE IV PRN ×3 (03:49→21:12)
[2019-10-19] MEDS: ZOCOR PO SCH ×2 (04:00→21:12)
[2019-10-19] MEDS: DESYREL PO SCH ×2 (04:00→21:11)
--- NOTE | 2019-10-19 07:09 | EKG Report ---
Test Performed on : 10/19/2019 02:50:06 AM Test Reason : chest pain Blood Pressure : / mmHG Vent. Rate : 077 BPM Atrial Rate : 077 BPM P-R Int : 166 ms QRS Dur : 186 ms QT Int : 434 ms P-R-T Axes : 009 -09 148 degrees QTc Int : 491 ms Atrial-sensed ventricular-paced rhythm Abnormal ECG When compared with ECG of 10-FEB-2019 14:15, Vent. rate has decreased BY 4 BPM Confirmed by Manoj Ambriz MD ([id number]) on 10/21/2019 12:13:10 PM
--- NOTE | 2019-10-19 09:20 | PROGRESS NOTE ---
DATE: 10/19/2019 SUBJECTIVE: This is an 89-year-old who suffered a distal tib-fib fracture. He has underlying dementia. He is legally blind, and he has end-stage renal disease on hemodialysis. He looks comfortable. He basically spent the night in the emergency room, and just got up to the floor. OBJECTIVE: Temperature 97.5 degrees. He has remained afebrile, pulse 70, respirations 16, and blood pressure 151/57. Pupils are equal and round. Lungs: Clear in all lung booth. Cardiovascular: Regular rhythm and rate without murmur or S3. Abdomen: Soft, nondistended. No pedal edema. LABORATORY DATA: Reviewed his labs from yesterday. Electrolytes and CBC look good. He has hematocrit of 32 and hemoglobin of 10. Blood sugars have been running 345 to 234. His chest x- ray was stable. Elevation of left hemidiaphragm. No sign of infiltrates. ASSESSMENT AND PLAN: 1. Tib-fib fracture. I suspect he will need open reduction and internal fixation. He was not walking much before, but he was able to stand and bear weight. He has recently had a toe amputation on that same foot as per Dr. Maradiaga. 2. End-stage renal disease. Dr. South is following his volume status, electrolytes and acid base look good. 3. He runs a normocytic anemia which appears stable. 4. Diabetes mellitus type 2. We will follow his patterned sugars. 5. Dementia. 6. Legally blind. REVIEW OF ORDERS: He is on Norvasc 10 mg at bedtime, Zocor 10 mg at bedtime, Flomax 0.4 mg at bedtime, trazodone 25 mg at bedtime. Aspirin 81 mg a day, Levaquin 500 mg p.o. q.48h hours, Prinivil 40 mg daily, Prilosec 40 mg b.i.d., MiraLAX 17 g b.i.d. We are giving him some morphine for pain p.r.n. He appears comfortable. The right lower leg is wrapped and stable. cc: Alex Benitez MD
[2019-10-19] MEDS ORDERED: DIPRIVAN 1% ONE (09:22)
[2019-10-19 10:14] LABS: BASO# 0.02 X1000 (0.0-0.2); BASO% 0.2 % (0.0-0.8); EOS# 0.15 X1000 (0.0-0.7); EOS% 1.5 % (0.0-10.0); HEMATOCRIT 30.3 % (42.0-52.0); HEMOGLOBIN 9.6 g/dL (14.0-18.0); IMM GRAN# 0.02 X1000 (0.0-0.04); IMM GRAN% 0.2 % (0.0-0.5); LYMPH# 0.93 X1000 (1.2-3.4); LYMPH% 9.6 % (20.5-51.1); MCH 31.5 PG (27-31); MCHC 31.7 g/dL (33-37); MCV 99.3 FL (81-99); MONO# 1.03 X1000 (0.11-0.59); MONO% 10.6 % (1.7-9.3); MPV 10.9 FL (7.4-10.4); NEUT# 7.57 X1000 (1.4-6.5); NEUT% 77.9 % (42.2-75.2); PLT 161 X1000 (130-400); RBC 3.05 XMIL (4.7-6.1); RDW 15.9 % (11.5-14.5); WBC 9.72 X1000 (4.8-10.8)
[2019-10-19] MEDS: NS 1,000 ML IV SCH ×2 (11:08→18:06)
[2019-10-19] MEDS: PRINIVIL PO SCH (11:10)
[2019-10-19 11:37] LABS: ALBUMIN 3.6 g/dL (3.5-5.0); CALCIUM 9.8 mg/dL (8.8-10.2); CREATININE 7.2 mg/dL (0.7-1.2); TOTAL BILIRUBIN 0.34 mg/dL (0.20-1.00); TOTAL PROTEIN 7.3 g/dL (6.3-8.3)
[2019-10-19] MEDS: PRILOSEC PO SCH ×2 (12:07→21:12)
[2019-10-19] MEDS: ASPIRIN PO SCH (12:07)
[2019-10-19] MEDS: MIRALAX PO SCH ×2 (12:07→21:11)
[2019-10-19 12:39] LABS: POTASSIUM 6.7 mmol/L (3.5-5.1)
--- NOTE | 2019-10-19 13:07 | ORTHOPAEDICS PROGRESS NOTE ---
DATE: 10/19/2019 Please see the orthopedic consultation for detailed history and physical. SUBJECTIVE: No acute events. Patient is lying comfortably in bed. Right lower extremity is in a splint and knee immobilizer. OBJECTIVE: Vital Signs: Afebrile. His vital signs are stable. Extremities: Examination of right lower extremity shows short leg splint to be intact in good repair. Knee immobilizer is in place. Thigh and calf are soft and compressible. Toes are grossly up and downgoing. He has a recent great toe amputation on this leg. ASSESSMENT: An 89-year-old male with right closed tibial-fibular fracture. PLAN: 1. X-rays were reviewed. The patient likely benefit from closed reduction intramedullary nailing of his fracture. He is nonambulatory but does use his leg to transfer occasionally. I think by operating, we would be able to stabilize the fracture to allow him to bear weight, as well as prevent the need for any type of cast immobilization. I will discuss this with his daughter in detail today. 2. The patient be n.p.o. at midnight tonight for planned surgery tomorrow. 3. Hold chemical DVT prophylaxis in the a.m. tomorrow. 4. Ice and elevate right lower extremity. 5. Appreciate hospitalist recommendations. Patient is scheduled to be dialyzed today and hopefully will be cleared for surgery tomorrow.
--- NOTE | 2019-10-19 13:47 | Diag Imaging Result Doc PS360 ---
EXAM: KNEE 1-2 VIEWS-RIGHT HISTORY: Fracture TECHNIQUE: Three views COMPARISON: None. FINDINGS: No fracture. No dislocation. Moderate to prominent atherosclerosis. IMPRESSION: No acute bony injury. Electronically signed by Quinton Muñoz 10/19/2019 1:45 PM
[2019-10-19] MEDS ORDERED: HEPARIN IV PRN (14:14)
[2019-10-19] MEDS ORDERED: NS 2,000 ML MISC PRN (14:14)
--- NOTE | 2019-10-19 16:00 | Diag Imaging Result Doc PS360 ---
EXAM: CT EXT LOWER RIGHT W/O CON 10/19/2019 HISTORY: Fracture. Focus on mid tibia distal through ankle TECHNIQUE: CT of the right lower leg COMMENT: There is extensive arterial calcification. There is a comminuted fracture of the distal shaft of the tibia with the distal fragment lying lateral to the proximal fragments. There are multiple fibular fractures in the distal shaft extending as far as the lateral malleolus. There is patchy osteoporosis in the regional skeleton with subchondral cysts present in the plafond and talar dome. There is an effusion in the suprapatellar bursa. There is subcutaneous edema generally particularly anteriorly over the lower portion of the lower leg. There is a hemangioma in the inferior calcaneus. IMPRESSION: Comminuted tibial and fibular fractures. Electronically signed by Oscar Otoole 10/19/2019 3:58 PM
--- NOTE | 2019-10-19 16:01 | PROVIDER PROGRESS NOTE ---
Progress Note Chief complaint: unable to get a valid response. His daughter is at bedside and told me [facility]. HPI: Mr. Anna is an 89-year-old -[place] male who is known to our outpatient dialysis clinic with hemodialysis on Saturday, Saturday, and Saturday. He has a past medical history of cognitive impairment, hypertension, coronary artery disease, and diabetes. He currently resides at [facility]. Per report from his daughter he was attempting to get out of the bed yesterday and fell. An ankle x-ray taken in the emergency department reveals an oblique fracture through the distal shaft of the tibia and a comminuted oblique fracture through the distal shaft of the fibula. He has a right left immobilized in place and no obvious internal or external rotation. He denies any pain, shortness of breath, fever, chills, or nausea and vomiting. He does moan out in pain at times when he tries to move his right leg. It should be noted that he is a poor historian with cognitive impairment. Past medical history: end stage renal disease with dialysis on Mondays, Wednesdays, and Fridays. Coronary artery disease, hypertension, diabetes mellitus type two, hyperlipidemia, osteoarthritis, legally blind to , Alzheimers disease, benign prostatic hypertrophy with lower obstructive symptoms. Past surgical history: AV graft to the right arm, cholecystectomy, toe amputation and debridement to the right foot. Pacemaker. Social history, he resides at [facility]. His daughter denies alcohol, tobacco, or illicit drug use. He is legally blind. He has not been able to ambulate or participate in therapy for weeks now. Family history: mother positive for diabetes and breast cancer. Father positive for diabetes. Allergies: no known drug allergies Home medications: amlodipine, aspirin, Levaquin, lisinopril, MiraLAX, Simvastatin, tamsulosin, trazodone. Review of systems: A 14 point Review of system complete, all pertinent positives listed above in the HPI. Physical exam: temperature 97.5, pulse 71, respirations 16, blood pressure 151/57, 02 sat 98% on room air. General: Elderly -[place] Islander male lying in bed in no acute distress. HEENT: normocephalic, atraumatic, conjunctiva pink, left pupil opaque and right pupil senilis. Mucous membranes moist. Trachea midline. Skin: warm, and dry. Neck: supple, no JVD observed Cardiovascular: Distant S1s2, regular rate and rhythm. No gallop or murmur. Respiratory: clear with diminished bases anteriorly bilaterally Abdomen: soft, nontender, nondistended. Small hernia-like protrusion near the umbilical region. Bowel sounds active. :non inspected. Extremities: immobilizer in place to right leg. Right arm graft. Neurological: drowsy and oriented to person. Labs: WBC 9.72, hemoglobin 9.6, hematocrit 30.3, platelet count 161, sodium 137, potassium still pending, chloride 98, carbon dioxide 28, BUN 77, creatinine 7.2, no intake or output recorded yet. Imaging: oblique fracture through the distal shaft of the tibia and a comminuted oblique fracture to the distal shaft of the fibula. Chest x-ray impression stable elevation of the left human diaphragm and suggestion of mild left basilar atelectasis. Assessment and plan: Chronic kidney disease stage 5D. He will receive his routine hemodialysis treatment as tolerated. Blood pressure. Stable. Fluid volume. Euvolemic on exam. Anemia. Stable. Hyperkalemia. We will address this with hemodialysis today. Acid-base balance. In target. Medication review. Morphine. Disposition. I spoke with the daughter at length about plan of care. At this time she feels she would like to continue hemodialysis treatment and will revisit this subject matter when she feels there is a loss of [id number].
--- NOTE | 2019-10-19 20:34 | ORTHOPAEDICS CONSULTATION ---
DATE: 10/19/2019 CHIEF COMPLAINT: Right tibia-fibula fracture. HISTORY OF PRESENT ILLNESS: This is an 89-year-old male who resides at a rehab facility. His daughter is at his bedside and states she was told by the facility that he had a mechanical fall this morning, where his leg twisted between his bed and mat. He was subsequently taken to [facility] where an x-ray revealed a fracture of the distal tibia and fibular shaft. Orthopedics has been consulted for management of this. He does have a complex medical history, including dementia, blindness, chronic renal disease, and diabetes. PAST MEDICAL HISTORY: 1. Dementia, which has been present for many years. 2. End-stage renal disease, for which he gets dialysis on Mondays, Wednesdays, and Fridays. He has an AV graft in the right arm. 3. Coronary artery disease. 4. Hypertension. 5. Diabetes. 6. Hyperlipidemia. 7. Osteoarthritis. 8. Blindness. 9. Benign prostatic hypertrophy. PAST SURGICAL HISTORY: 1. Pacemaker. 2. AV graft in right arm. 3. Cholecystectomy. 4. Right great toe amputation, which was in December [address] Maradiaga. SOCIAL HISTORY: He is legally blind. He has no current alcohol or tobacco use. He does reside in a rehab facility. His daughter states that he does not ambulate regularly, but is able to stand and help with transfers. FAMILY HISTORY: Mother and father with diabetes. His mother had breast cancer. ALLERGIES: No known drug allergies. CURRENT MEDICATIONS: Include: 1. Norvasc 10 mg p.o. at bedtime. 2. Aspirin 81 mg p.o. daily. 3. Prinivil 40 mg p.o. daily. 4. MiraLAX 17 g p.o. b.i.d. 5. Zocor 10 mg at bedtime. 6. Flomax 0.4 mg at bedtime. 7. Trazodone 25 mg p.o. at bedtime. REVIEW OF SYSTEMS: No recent weight loss, fever, chills. He is legally blind. A 10 point review of systems was negative except as mentioned in the HPI. PHYSICAL EXAMINATION: General: His daughter is at bedside at this time. He does occasionally moan in pain, but does not talk to me for the most part. Vital Signs: His most recent vital signs include a temperature of 97.8 degrees, blood pressure 153/55, and he is saturating 96% on room air at this time. HEENT: Atraumatic, normocephalic. Extremities: His right hand grasp is slightly weaker than his left, and his daughter states this is due to a stroke that he had some years ago. He does follow commands, though he does not answer questions. On his right lower extremity, there is a splint in place to the right lower leg as well as knee immobilizer. He is able to move his toes on command and nods his head when asked if he can feel my touch to his toes. Skin: Warm and dry. LABORATORY: His white count is 9.7. His hemoglobin and hematocrit are 9.6 and 30.0. His potassium is 6.7, BUN is 77, and his creatinine is 7.2. His most recent glucose is 182. IMAGING: An x-ray of the right lower extremity revealed right closed tibia and fibula fractures. ASSESSMENT: Right closed tibia and fibula fractures. PLAN: Dr. Randolph is adding a CT of the right ankle to better evaluate the fractures. The plan at this time is for Dr. Randolph or Dr. Marie to take Mr. Anna to the operating room tomorrow for a reduction and intramedullary nailing of his tibia fracture and open reduction internal fixation of his right fibula fracture. The patient is not ambulatory, but does use this leg to transfer. By operating, we will be able to stabilize the fracture to allow him to bear weight. Dr. Randolph is discussing this with patient's daughter today. He will be n.p.o. at midnight tonight for the surgery tomorrow. He will be getting his dialysis today and hopefully will be cleared for surgery tomorrow. Dictated by MEGHAN Chavez for Carlos Randolph MD [facility]ITAL[facility]
[2019-10-19] MEDS: FLOMAX PO SCH (21:12)
[2019-10-19] MEDS: NORVASC PO SCH (21:29)
[2019-10-20] MEDS: MORPHINE IV PRN (01:49)
[2019-10-20] MEDS: NORCO-7.5 PO PRN ×2 (02:44→23:24)
[2019-10-20 07:40] LABS: ALBUMIN 3.1 g/dL (3.5-5.0); CALCIUM 8.8 mg/dL (8.8-10.2); PHOSPHORUS 3.9 mg/dL (2.7-4.5); POTASSIUM 5.6 mmol/L (3.5-5.1)
[2019-10-20 07:45] LABS: CREATININE 5.3 mg/dL (0.7-1.2)
--- NOTE | 2019-10-20 08:03 | ORTHOPAEDICS PROGRESS NOTE ---
DATE: 10/20/2019 SUBJECTIVE: No acute events overnight. Patient underwent hemodialysis yesterday with no complications. He is unable to carry on any type of conversation. OBJECTIVE: Afebrile. Vital signs stable. Labs: Pending. Extremities: Examination of the right lower extremity shows short-leg splint to be clean, dry, and intact. Knee immobilizer is in place. Thigh and upper calf are soft and compressible. Toes are grossly up and downgoing. He is status post great toe amputation on this foot. IMAGING: CT scan of the right lower extremity was reviewed demonstrating no intra-articular split down into the ankle joint. He has a comminuted distal 3rd tibial shaft fracture with comminuted fibula fracture. AP and lateral views of the right knee were also reviewed, demonstrating no fracture or dislocation. ASSESSMENT: 89-year-old male with end-stage renal disease on hemodialysis, and dementia who presents with a right distal 3rd tibia-fibula fracture. PLAN: 1. A long discussion was had with the patient's daughter on the phone last night regarding treatment options for this. Given his fracture pattern, I think he would benefit from closed reduction intramedullary nailing of his tibia fracture. This will allow him to bear weight and use the leg for transfers. It will also prevent him from having to be in any type of cast or immobilization which could lead to pressure ulcers. Risks, benefits, alternative therapies were discussed the patient's daughter regarding surgery. Risks of surgery include but not limited to risks of bleeding, infection, damage to nerves and vessels around the area, continued pain following surgery, malunion, nonunion, symptomatic hardware, need for revision surgery. Also risks of anesthesia including blood clot, stroke, heart attack, even . The patient has significant dementia right now and daughter is concerned that anesthesia is going to worsen this which is a real possibility. We will discuss the possibility of doing spinal anesthetic with the anesthesiologist. 2. NPO until after surgery. 3. Hold chemical DVT prophylaxis until postoperative. 4. Appreciate Medicine and Nephrology recommendations.
--- NOTE | 2019-10-20 08:44 | NEPHROLOGY PROGRESS NOTE ---
DATE: 10/20/2019 TIME SEEN: 06. SUBJECTIVE: Mr. Anna is lying in bed. He opens his eyes to verbal stimuli. Otherwise, he remains very lethargic. He is nonverbal. OBJECTIVE: Vital Signs: Temperature 98.9 degrees, blood pressure 135/52, heart rate respirations 16. He is on room air. Last recorded saturation 97%. He has had 497 in. He has had 785 mL pulled off on dialysis yesterday. LABS: Sodium 134, potassium 5.6, chloride 98, CO2 26, BUN 43, creatinine 5.3, glucose 91, anion gap 10, calcium 8.8, phosphorus 3.9, albumin 3.1. Hemoglobin of 9.6 previously. PHYSICAL EXAMINATION: General: This is an 89-year-old male who is resting quietly in bed. He appears in no acute distress. Skin: Warm and dry. HEENT: Normocephalic, atraumatic. Conjunctivae pale and pink. He has GARRY. Mucous membranes are dry. Neck: Supple. Trachea midline. He has no evidence of JVD. Cardiovascular: Regular rate and rhythm. He has no murmur or gallop appreciated. Lungs: Clear to auscultation bilaterally. Equal excursion poor inspiratory effort. Remains on room air. Abdomen: Large, round, soft, nontender. Positive bowel sounds. Hernia noted to the umbilical region, lower right. Genitourinary: Not inspected. Minimal void with dialysis assist. Extremities: Immobilizer with an Reji wrap to the right leg. He has a right upper arm graft with palpable thrill. Neurological: As mentioned above. ASSESSMENT AND PLAN: 1. Chronic kidney disease stage 5D. The patient had his routine dialysis treatment yesterday. No indications for intervention today. We will plan for treatment again tomorrow. 2. Electrolytes and acid-base balance. He has mild hyperkalemia. No indications for treatment. We will change with correction on dialysis in the a.m. 3. Anemia. This is low but stable. 4. Right tibia-fibula fracture. The patient is scheduled for surgery this a.m. He has been treated with pain medication and is resting comfortably. This is to be followed by Orthopedics and Primary Care. I would like to thank you for allowing us to follow with this patient. Dictated by MEGHAN Araujo for Gamal South MD Face to face encounter, data reviewed, discussed with Marla Yates on 10/20/18. I agree with the above assessment and plan of care. cc: MEGHAN Araujo MD [facility]
--- NOTE | 2019-10-20 09:09 | PROGRESS NOTE ---
DATE: 10/20/2019 SUBJECTIVE: Mr. Anna is comfortable, slept well. The plan is to do internal fixation on his lower leg today. OBJECTIVE: Vital signs: Temperature is 98.9 degrees, pulse 80, respirations 16, blood pressure 135/52. HEENT: Pupils are equal and round. Lungs: Clear in all lung booth. Cardiovascular: Regular rhythm and rate without murmur or S3. Extremities: He had a toe amputation, I believe on his right foot, which seems to be healing well. Weight 163 pounds. ASSESSMENT AND PLAN: 1. Right tibia-fibula fracture. The patient to have open reduction and internal fixation today. 2. Chronic kidney disease stage 5D. He is on dialysis. He has had his routine dialysis treatment yesterday. Acid-base and volume status look good. 3. Anemia is low but stable. We will watch, transfuse as necessary. REVIEW OF ORDERS: I do not see any change. He is on Norvasc 10 mg at bedtime, Zocor 10 mg at bedtime, Flomax 0.4 mg at bedtime, trazodone 25 mg at bedtime. We are giving him Levaquin 500 mg p.o. q.48 hours, Prinivil 40 mg daily, polyethylene glycol 17 g p.o. b.i.d. cc: Alex Benitez MD
[2019-10-20 09:51] LABS: INR 1.13; PROTIME 14.6 Seconds (11.0-16.0)
[2019-10-20 10:08] LABS: BASO# 0.01 X1000 (0.0-0.2); BASO% 0.1 % (0.0-0.8); EOS# 0.25 X1000 (0.0-0.7); EOS% 3.1 % (0.0-10.0); HEMATOCRIT 29.3 % (42.0-52.0); HEMOGLOBIN 9.1 g/dL (14.0-18.0); LYMPH# 1.26 X1000 (1.2-3.4); LYMPH% 15.4 % (20.5-51.1); MCH 31.4 PG (27-31); MCHC 31.1 g/dL (33-37); MONO# 0.83 X1000 (0.11-0.59); MONO% 10.2 % (1.7-9.3); MPV 10.9 FL (7.4-10.4); NEUT# 5.81 X1000 (1.4-6.5); NEUT% 71.2 % (42.2-75.2); PLT 148 X1000 (130-400); RDW 15.9 % (11.5-14.5); WBC 8.16 X1000 (4.8-10.8)
[2019-10-20 10:23] LABS: URINE SOURCE CATH
[2019-10-20 10:38] LABS: BILIRUBIN URINE NEGATIVE (NEGATIVE); BLOOD URINE SMALL (NEGATIVE); COLOR YELLOW; GLUCOSE URINE 150 mg/dL (NEGATIVE); KETONE URINE NEGATIVE (NEGATIVE); LEUKOCYTES URINE LARGE (NEGATIVE); NITRITE URINE NEGATIVE (NEGATIVE); PH URINE 6.5; PROTEIN URINE 100 mg/dL (NEGATIVE); SP GRAVITY URINE 1.012; TURBIDITY URINE HAZY (CLEAR); UROBILINOGEN URINE NORMAL (NORMAL)
[2019-10-20 10:43] LABS: UR EPITHELIAL CELLS <10 /HPF (<10); URINE BACTERIA NEGATIVE /HPF; URINE RBC <10 /HPF (<10); URINE WBC TNTC /HPF (<10)
[2019-10-20 10:57] LABS: URINE YEAST PRESENT
[2019-10-20] MEDS ORDERED: D50W SYRINGE IV PRN (11:23)
[2019-10-20] MEDS ORDERED: DIPRIVAN 1% ONE (11:58)
[2019-10-20] MEDS ORDERED: QUELICIN (DOSE) ONE (11:59)
[2019-10-20] MEDS ORDERED: XYLOCAINE-MPF 2% ONE (11:59)
[2019-10-20] MEDS ORDERED: ZOFRAN ONE (11:59)
[2019-10-20] MEDS: PRILOSEC PO SCH ×2 (12:34→23:07)
[2019-10-20] MEDS: ASPIRIN PO SCH (12:34)
[2019-10-20] MEDS: MIRALAX PO SCH (12:34)
[2019-10-20] MEDS: PRINIVIL PO SCH (12:34)
[2019-10-20] MEDS ORDERED: KEFZOL 1 GM/D5W 1 GM/50 ML IVPB ONE (13:27)
[2019-10-20 13:30] LABS: HEPATITIS PROFILE ACUTE SEE COMMENTS
[2019-10-20] MEDS ORDERED: FENTANYL ONE (14:32)
[2019-10-20] MEDS ORDERED: EPHEDRINE ONE (14:47)
[2019-10-20] MEDS ORDERED: SENSORCAINE-MPF 0.5%/EPI 1:200,000 ONE (15:37)
--- NOTE | 2019-10-20 16:46 | Diag Imaging Result Doc PS360 ---
LOWER LEG-RIGHT - 10/20/2019 INDICATION: Post op fracture. Full length tib/fib AP, Lateral TECHNIQUE: Four views COMPARISON: 10/19/2019 FINDINGS: There is an intramedullary tibial richmond in good position. There has been decrease in the displacement of the comminuted distal fibular fracture. IMPRESSION: No complication. Electronically signed by Roshan De La Fuente 10/20/2019 4:44 PM
--- NOTE | 2019-10-20 20:37 | OPERATIVE NOTE ---
PROCEDURE DATE: 10/20/2019 PREOPERATIVE DIAGNOSES: 1. Right closed tibial shaft fracture. 2. Right closed fibula fracture. POSTOPERATIVE DIAGNOSIS: 1. Right closed tibial shaft fracture. 2. Right closed fibula fracture. PROCEDURE: 1. Closed reduction, intramedullary nailing of right tibia fracture. 2. Closed treatment of right fibular fracture. SURGEON: Carlos Randolph MD. CASING COOKER: Tammy Roman. ANESTHESIA: General endotracheal anesthesia. COMPLICATIONS: None. SPECIMENS: None. DRAINS: None. BLOOD LOSS: 100 mL. IMPLANTS: Synthes tibial nail measuring 12 mm x 405 mm with 1 proximal interlocking screw and 2 distal interlocking screws. INDICATIONS FOR PROCEDURE: Mr. Anna is an 89-year-old gentleman who presented to [facility] after sustaining a [facility] fall at his [facility]. X-rays were taken demonstrating a distal 3rd tib-fib fracture. Given these findings and fracture pattern, decision was made to proceed with closed reduction, intramedullary nailing of his right tibia fracture. Risks, benefits, alternative therapies were discussed with the patient and family regarding surgery. Risks of surgery include, but not limited to risks of bleeding, infection, damage to nerves and vessels around the area, malunion, nonunion, continued pain following surgery, need for revision surgery. There is also risk of anesthesia, including blood clot, stroke, heart attack, even . The patient has significant history of dementia and end-stage renal disease, making him a high risk for wound complications and healing. He also has a high risk of postoperative worsening of his dementia, which the family is aware. PROCEDURE: Mr. Anna was identified by wristband and greeted in preop holding area on 10/20/2019. His right lower extremity, which was the operative site, was marked with indelible ink per [facility] Sign Your Site protocol. Following this, the patient was transferred back to the operating room for surgery. Upon entering the OR, he was transferred in supine position on the [place] trauma table. All bony prominences were well padded. General endotracheal anesthesia was then induced. At this time, the right lower extremity was prepped and draped in routine sterile fashion. Formal time-out was performed, confirming correct patient, procedure, operative site, operative side, administration of preop antibiotics. Everyone was in agreement. Patient received 2 g Ancef prior to incision. Fluoroscopy was brought in, and reduction maneuver was performed. Fluoroscopy was used to localize the placement of 2 Perez clamps percutaneously to hold provisional fixation of the fracture. We were satisfied with the fracture reduction with AP and lateral planes. We then proceeded with instrumentation of the nail. A 3 cm longitudinal incision was made 1 cm proximal to the superior pole of the patella. Knife was used to dissect through skin and subcutaneous fat. Quad tendon and VMO were then identified. At this time, a 2 cm longitudinal slit was made in the quad tendon, and curved Feliciano scissors were placed into the joint and spread. At this time, the smooth guide and trocar for the nail were then inserted under the patella down to the tibial plateau. A guidewire was then placed and fluoroscopy was brought in, obtaining a perfect AP view of the knee. Once this was done, our starting point was then obtained on the medial 3rd of the lateral tibial spine. When we were satisfied with position of our starting point on both AP and lateral views, we then took the guide wire down into the tibia about 6 cm. Following this, entry reamer was then placed and our entry hole was made. We then placed our ball-tipped guidewire down into the tibia and across the fracture site, taking care to align it center center on the lateral view and slightly lateral to the center on the AP view in order to prevent going into valgus. Once this was done, a measuring device was used, and nail was found to be 405 mm. We then began with sequential reaming, starting with a 10 mm reamer, working our way up to a 13.5 mm reamer. We had excellent chatter with the 13.5 mm reamer. We thus opened a 12 mm x 405 mm Synthes tibial nail and assembled it on the back table. The nail was then impacted in position. Once it was properly seated, we confirmed that it was buried on the lateral view of the knee. We then proceeded with placing a single transverse interlock screw proximally. The nail was then impacted down against the heel to provide some compression across fracture site. Our 2 distal interlock screws were then placed in routine fashion going from medial to lateral. We had good purchase with the distal interlock screws. At this time, our percutaneous Perez clamps were removed. Final AP and lateral x-rays were taken of the knee, tibia and ankle, confirming near anatomic reduction of the fracture with good alignment and position of implants. At this time, all wounds were copiously irrigated with normal saline. We washed out the knee joint through our arthrotomy site to ensure all bone reamings were removed. We then proceeded with closure of our quad tendon arthrotomy using 0 Vicryl suture, 2-0 Vicryl sutures were used for subcutaneous tissue closure of this wound, and then 3-0 nylon sutures were then used in horizontal mattress fashion for closure of all other wounds. Then 30 mL of 0.5% Marcaine with epinephrine were then injected around all incision sites. The wounds were then dressed with Xeroform, 4 x 4s, ABD, sterile Webril, and an Reji wrap. Patient was then awoken and transferred to his hospital bed and taken to recovery in stable condition. There were no acute complications during the procedure. All sponge and sharp counts were correct at conclusion of procedure.
[2019-10-20] MEDS: NORVASC PO SCH (23:07)
[2019-10-20] MEDS: LEVAQUIN PO SCH (23:07)
[2019-10-20] MEDS: PERIDEX MT SCH (23:08)
[2019-10-20] MEDS: FLOMAX PO SCH (23:08)
[2019-10-20] MEDS: ZOCOR PO SCH (23:08)
[2019-10-20] MEDS: DESYREL PO SCH (23:13)
[2019-10-21] MEDS: MIRALAX PO SCH ×4 (00:46→22:11)
[2019-10-21] MEDS: DILAUDID IV PRN ×2 (04:07→10:15)
[2019-10-21] MEDS ORDERED: NS 2,000 ML MISC PRN (06:26)
[2019-10-21] MEDS ORDERED: HEPARIN IV PRN (06:26)
[2019-10-21] MEDS ORDERED: TIGHT: 0.2 ML/HR FOR DIALYSIS MISC PRN (06:26)
[2019-10-21 07:15] LABS: HEMATOCRIT 26.4 % (42.0-52.0); HEMOGLOBIN 8.2 g/dL (14.0-18.0)
[2019-10-21 07:41] LABS: CALCIUM 8.4 mg/dL (8.8-10.2); CREATININE 6.6 mg/dL (0.7-1.2)
[2019-10-21 07:58] LABS: POTASSIUM 6.2 mmol/L (3.5-5.1)
--- NOTE | 2019-10-21 09:01 | NEPHROLOGY PROGRESS NOTE ---
DATE: 10/21/2019 TIME SEEN: 0725. SUBJECTIVE: Mr. Anna is resting quietly in bed. He has had a good night according to the nurses, very little complaints or moaning. LABORATORY DATA: Sodium is 135, potassium 6.2, chloride 98, CO2 is 26, BUN 56, creatinine 6.6, glucose is 180. The patient has an anion gap of 11. His calcium is 8.4. Hemoglobin 8.2, which is down from 9.1. OBJECTIVE: Most Recent Vital Signs: Temperature 97.3 degrees, blood pressure 136/43, heart rate 78, respirations 16. He is on room air. Last recorded saturation 98%. He has had 300 in. He has had 550 out, 100 mL on estimated blood loss. General: This is an 89-year-old, male. He is resting quietly in bed. He is status postoperative day #1. He appears chronically ill. No acute distress. Skin: Warm and dry. HEENT: Normocephalic, atraumatic. Conjunctiva is pale. He has GARRY. Mucous membranes are dry. Neck: Supple. Trachea midline. No evidence of JVD. Cardiovascular: Regular rate and rhythm. No appreciable murmur or gallop. Lungs: Clear to auscultation bilaterally. Equal excursion on room air. Abdomen: Soft, nontender. Positive bowel sounds. Genitourinary: Not inspected. Minimal void. Bagley catheter is in place with dialysis assist. Extremities: The patient has Reji wrap that has some shadow drainage noted to the right lower extremity. This has been in a splint during the evening. Skin is warm to touch on the right lower extremity. Left is stable. Upper arm graft with palpable thrill. Neurological: Alert and oriented to person and to place. ASSESSMENT AND PLAN: 1. Chronic kidney disease stage 5D. This is the patient's routine dialysis today. We will place him on a 2-potassium bath. He is to dialyze for 3.5 hours. We will attempt to pull him to his outpatient dry weight. We will hold heparin today secondary to post op status. 2. Electrolytes and acid-base balance. The patient has hyperkalemia with planned correction on dialysis. 3. Anemia. Hgb has dropped from 9.1 to 8.2. We will continue to monitor and evaluate. No indications for transfusion at this time. 4. Status postoperative day #1 secondary to right tibia-fibular fracture, followed by Orthopedic and primary care. I would like to thank you for allowing us to follow with this patient. Dictated by MEGHAN Araujo for Gamal South MD Face to face encounter, data reviewed, discussed with aMrla Yates on 10/21/19. I agree with the above assessment and plan of care. cc: MEGHAN Araujo MD [facility]
--- NOTE | 2019-10-21 14:35 | ORTHOPAEDICS PROGRESS NOTE ---
DATE: 10/21/2019 SUBJECTIVE: No acute events overnight. Patient did well after surgery. His pain appears to be well controlled. He was seen today while getting hemodialysis. OBJECTIVE: Hematocrit is 26.Vital Signs: Afebrile, vital signs stable. Urinalysis collected last night is positive for gram-positive cocci. Extremities: Right lower extremity shows knee immobilizer and soft Reji wrap dressing clean, dry, intact. No drainage from the surgical incisions. Thigh and calf are soft and compressible. Toes are grossly up and downgoing. Dorsalis pedis pulse palpable. ASSESSMENT: 89-year-old male status post closed reduction intramedullary nailing, right tibial shaft fracture. PLAN: 1. Patient will be weightbearing as tolerated right lower extremity. He is nonambulatory at baseline and basically uses his leg for transfers, which he can continue to do. Physical therapy to mobilize and work on transfers. 2. Aspirin for deep venous thrombosis prophylaxis. 3. Appreciate nephrology and hospitalist recommendations. Patient is currently on hemodialysis. 4. Ice to the left knee and tibia as needed for pain. 5. Disposition per primary team. Patient is a resident at [facility] and is planning on being discharged back there once medically stable. He can follow up with me in clinic in 10 to 14 days for wound check and x-rays.
--- NOTE | 2019-10-21 14:49 | PROGRESS NOTE ---
DATE: 10/21/2019 INTERVAL HISTORY: No acute events overnight. SUBJECTIVE: I saw Mr. Anna in the dialysis unit. He did not appear in any acute distress. According to the dialysis nurse, looks like he was sedated and drowsy when he reached dialysis session, likely because of the intravenous Dilaudid that he had received today morning. Mr. Anna does have significant hearing impairment. He is not able to participate in clinical encounter meaningfully. VITAL SIGNS: Temperature of 98.4 degrees, pulse 78, respiratory rate 14, blood pressure of 129/53. He is saturating 96% on 2 L nasal cannula. PHYSICAL EXAMINATION: General: He is not in acute distress. HEENT: Oral cavity is moist. Lungs: Air entry bilaterally equal. No wheeze, rhonchi, crackles. Cardiovascular: S1, S2 normal. Appears regular. No murmur or gallop. Abdomen: Soft, nontender. He has a right-sided AV fistula with good thrill. Lower extremities: Left lower extremity does not have any edema. Right lower extremity is in bandage and immobilizer. His temperature of the skin of the right foot appears normal and comparable to the left. He has right foot great toe amputation. Dorsalis pedis pulses were difficult to palpate INPUT AND OUTPUT: Suggest he has not had any bowel movement. He was able to eat 75% of his meals. LABORATORY DATA: Suggestive of hemoglobin of 8.2, potassium of 6.2, BUN 56, creatinine 6.6. Blood glucose 180. Microbiology: Urine culture growing gram-positive cocci. However, his symptoms could not be determined. My plan is just to watch it but not treat it. ASSESSMENT AND PLAN: 1. Mechanical fall leading to right lower extremity comminuted displaced tibia- fibula fracture status post closed reduction and internal fixation of tibial fracture on 10/20/2019. Decrease pain regiment to oral [place]. Start patient on bowel regimen to avoid constipation and start heparin subcutaneous for deep venous thrombosis prophylaxis. Appreciate orthopedic recommendations. 2. Chronic kidney disease stage 5, on Saturday, Saturday, Saturday hemodialysis and hyperkalemia. He underwent dialysis today. I will follow up with potassium levels tomorrow. 4. S/p Pacemaker. 3. Others. Continue amlodipine and lisinopril for essential hypertension; ferrous sulfate for acute blood loss anemia; trazodone for insomnia; tamsulosin for benign prostatic hypertrophy; simvastatin for hyperlipidemia. DISPOSITION: Continue to monitor. Patient inside the hospital as we await further orthopedic recommendation. I called the patient's daughter and discussed plan of care with her and I answered all of her questions. cc: Endy Partida MD MTDD
[2019-10-21] MEDS: PRILOSEC PO SCH ×2 (14:58→22:09)
[2019-10-21] MEDS: ASPIRIN PO SCH (14:58)
[2019-10-21] MEDS: PRINIVIL PO SCH (14:58)
[2019-10-21] MEDS: FERROUS SULFATE PO SCH (14:59)
[2019-10-21] MEDS: PERIDEX MT SCH ×2 (14:59→22:12)
[2019-10-21] MEDS ORDERED: SEROQUEL PO ONE (20:16)
[2019-10-21] MEDS ORDERED: LOPRESSOR IV ONE (21:41)
[2019-10-21] MEDS: NORVASC PO SCH (22:10)
[2019-10-21] MEDS: FLOMAX PO SCH (22:10)
[2019-10-21] MEDS: ZOCOR PO SCH (22:10)
[2019-10-21] MEDS: HEPARIN SUBQ SCH (22:11)
[2019-10-22] MEDS: NORCO-7.5 PO PRN ×3 (00:21→16:17)
[2019-10-22 07:03] LABS: HEMATOCRIT 27.3 % (42.0-52.0); HEMOGLOBIN 8.4 g/dL (14.0-18.0)
[2019-10-22 07:39] LABS: ALBUMIN 2.8 g/dL (3.5-5.0); CALCIUM 8.4 mg/dL (8.8-10.2); PHOSPHORUS 5.4 mg/dL (2.7-4.5); POTASSIUM 5.3 mmol/L (3.5-5.1)
[2019-10-22 07:52] LABS: CREATININE 5.1 mg/dL (0.7-1.2)
[2019-10-22] MEDS: PRILOSEC PO SCH (09:21)
[2019-10-22] MEDS: MIRALAX PO SCH ×2 (09:21→09:22)
[2019-10-22] MEDS: ASPIRIN PO SCH (09:21)
[2019-10-22] MEDS: PRINIVIL PO SCH (09:22)
[2019-10-22] MEDS: FERROUS SULFATE PO SCH (09:22)
[2019-10-22] MEDS: HEPARIN SUBQ SCH (09:22)
[2019-10-22] MEDS: PERIDEX MT SCH (09:23)
--- NOTE | 2019-10-22 14:45 | DISCHARGE SUMMARY ---
ADMISSION DATE: 10/18/2019 DISCHARGE DATE: 10/22/2019 DISCHARGE DISPOSITION: [facility] facility. DISCHARGE CONDITION: Hemodynamically stable. He has significant hearing impairment. His hemoglobin has remained stable after surgery on the right lower extremity. DISCHARGE DIAGNOSES: 1. Mechanical fall. 2. Right lower extremity comminuted, displaced tibia-fibula fracture. 3. Chronic kidney disease stage 5, on Saturday, Saturday, Saturday hemodialysis, with hyperkalemia. 4. Acute blood loss anemia, not requiring transfusion. OTHER DIAGNOSES: 1. Dependent on dialysis. 2. Status post pacemaker. 3. Hearing impairment and legal blindness. 4. Essential hypertension. 5. Insomnia. 6. Benign prostatic hypertrophy. 7. Hyperlipidemia. DISCHARGE PHYSICAL EXAMINATION: Vital Signs: Temperature of 97.6 degrees, pulse 82, respiratory rate 16, blood pressure 125/55, saturating 94% on room air. General: The patient does not appear in acute distress. HEENT: Oral cavity is dry. Lungs: Air entry bilaterally equal. No wheeze, rhonchi, or crackles. Cardiovascular: S1, S2 normal. No murmur, rub, or gallop. She has a pacemaker which is implanted on the left pectoral region. Abdomen: Soft, nontender. Extremities: Right lower extremity is in a soft immobilizer. He has intact neurovascular bundle. He is able to wiggle his toes bilaterally, and the temperature of the skin of the right foot appears normal and comparable to the left. He has a right foot great toe amputation. DISCHARGE LABORATORY DATA: Hemoglobin 8.4. Potassium 5.3, BUN 36, creatinine 5.1, blood glucose 211. MICROBIOLOGY: He did have Staphylococcus epidermidis bacteremia, but he does not have fever, tachycardia, or leukocytosis. IMAGING DURING HOSPITAL ADMISSION: Ankle x-ray on 10/18/2019 had fracture of the distal tibia and fibula shaft. Chest x-ray on 10/18/2019 had stable elevation of left hemidiaphragm, suggestive of left basilar atelectasis. Lower extremity CT had a comminuted tibial and fibular fracture on the right. Knee x-ray on 10/19/2019 did not have any acute bony injury. Lower extremity x-ray on 10/20/2019 did not have any complication. DISCHARGE MEDICATIONS: Amlodipine 10 mg at nighttime, tamsulosin 0.4 mg at nighttime, simvastatin 10 mg at nighttime, aspirin 81 mg daily, which would also suffice DVT prophylaxis as per Orthopedic recommendation, trazodone 25 mg at nighttime, ferrous sulfate 325 mg daily, MiraLAX 17 grams b.i.d., [place] 7.5 tablet every 6 hours as needed (25 tablets have been prescribed), lisinopril 40 mg daily. HOSPITAL COURSE SUMMARY: Mr. Anna is an 89-year-old, man, who lives in a correction facility, who came in after a mechanical fall. In the emergency room, he was found to have right-sided lower extremity tibia-fibula shaft fracture, which was displaced, so he was admitted for further management. He also had prior history of pacemaker implantation, legal blindness, and cognitive impairment. He was admitted, and Orthopedic team was consulted, and on 10/20/2019, he underwent closed reduction and intramedullary nailing of the right tibia fracture, as well as closed treatment of the right fibular fracture, which he tolerated well. His postoperative course was unremarkable. His hemoglobin was stable, and he did not require any blood transfusion. He is weightbearing as tolerated on right lower extremity, so he is deemed appropriate for discharge. He should have followup with Orthopedics within 10 days. He was also found to have hyperkalemia, and he received his routine dialysis, which was on Saturday, Saturday, Saturday, following which his potassium level had gone down. I called the patient's daughter on the phone, and discussed with her about the patient's clinical course, discharge plan, and had answered all of her questions. TIME SPENT: More than 30 minutes of time was spent in preparing the discharge of this patient to correction facility. cc: Endy Partida MD
[2019-10-22 15:45] VITALS: BP 131/54
[2019-10-22] MEDS ORDERED: HUMALOG SUBQ SCH (16:00)
--- NOTE | 2019-10-22 19:24 | NEPHROLOGY PROGRESS NOTE ---
DATE: 10/22/2019 TIME SEEN: 0750. SUBJECTIVE: Mr. Anna is resting quietly in bed, states that he have a fairly good night last night, though he is hungry this a.m. OBJECTIVE: His most recent vital signs temperature is 97.9 degrees, blood pressure 135/50, heart rate 70, respirations 18, He is on room air. Last recorded saturation 97%. He has had 1320 in, 1757 out on dialysis. LABS: Sodium is 136, potassium is 5.3, chloride 95, CO2 22, BUN 36, creatinine is 5.1, post dialysis with a glucose of 210. The patient has an anion gap of 19, calcium 8.4, phosphorus 5.4 with an albumin of 2.8. The patient had a previous hemoglobin of 8.2, now up to 8.4. PHYSICAL EXAMINATION: General: This is an 89-year-old male resting quietly in bed. He appears chronically ill. He is in no acute distress. Skin: Warm and dry. HEENT: Normocephalic, atraumatic. Conjunctivae pale. He has GARRY. Mucous membranes are dry. Neck: Supple, trachea midline, no evidence of JVD. Cardiovascular: Regular rate and rhythm. He has a no appreciable murmur or gallop. Lungs: Clear to auscultation anteriorly. Equal excursion on room air. Abdomen: Soft, large, round, nontender, positive bowel sounds. Genitourinary: Not inspected. Minimal void with dialysis assist. Extremities: Has an Reji wrap to his right lower extremity with a splint in place. This is dry and intact today. Left leg is stable. Upper arm graft has palpable thrill. Neurological: He is alert to person and to place. ASSESSMENT AND PLAN: 1. Chronic kidney disease stage 5D. The patient had his routine dialysis treatment yesterday. We will plan for dialysis again in the a.m. 2. Electrolytes and acid-base balance. These are stable. 3. Anemia. This has stabilized. Last hemoglobin 8.4. 4. Status post operative day #2 for right tibia-fibula fracture followed by Orthopedic and primary care. I would like to thank you for allowing us to follow with this patient. Dictated by MEGHAN Araujo for Gamal South MD Face to face encounter, data reviewed, discussed with Marla Yates on 10/22/19. I agree with the above assessment and plan of care. cc: MEGHAN Araujo MD MTDD
--- NOTE | 2019-10-22 20:39 | ORTHOPAEDICS PROGRESS NOTE ---
DATE: 10/22/2019 SUBJECTIVE: No acute events overnight. The patient is doing well. He has been tolerating a diet. His pain has been controlled. OBJECTIVE: Afebrile. Vital signs are stable. Extremity examination of the right lower extremity shows Reji bandage to be clean, dry and intact. Knee immobilizer is in place. Thigh and calf soft and compressible. Toes up and downgoing. Grossly neurovascularly intact. LABORATORY DATA: Hematocrit is 27. ASSESSMENT: An 89-year-old male status post closed reduction and intramedullary nailing, right tibial shaft fracture. Postoperative day 2. PLAN: 1. The patient is weightbearing as tolerated, right lower extremity. 2. Physical Therapy to work with him on mobilization and range of motion of the knee, ankle and foot. 3. Heparin for DVT prophylaxis. 4. Appreciate hospitalist recommendations. 5. Disposition per primary team. The patient is going to be discharged back to [facility] today. He can follow up with me in clinic in 10-14 days for wound check and x-rays.
== END 2019-10-22 16:25 | DRG 492 ==
LOC: SUPCPDRO → ED 12:14 → EDIPHOLD 17:00 → SUATTDRO 17:00 → 4N 10-19 07:47
PROVIDERS: ATTEND Internal Medicine

== ENCOUNTER 2019-11-12 16:38 | Inpatient (IN) ==
--- NOTE | 2019-11-12 17:06 | PROVIDER DOCUMENTATION ---
HPI-Cardiac General - General Stated Complaint: HYPOTENSION/ N/V Time Seen by Provider: 11/12/19 16:43 Source: EMS Allergies/Adverse Reactions: Patient Allergies Allergy/AdvReac Type Severity Reaction Status Date / Time No Known Allergies Allergy Verified 10/18/19 13:35 Home Medications: Home Medication List Medication Instructions Recorded Confirmed Last Taken Type Tamsulosin [Flomax] 0.4 mg PO QHS 02/20/17 10/18/19 1 Day Ago History ~02/08/19 Amlodipine Besylate 10 mg PO QHS 03/27/18 10/18/19 1 Day Ago History ~02/08/19 10 mg SIMVAstatin [Zocor] 10 mg PO QHS 03/27/18 10/18/19 1 Day Ago History ~02/08/19 10 mg Aspirin 81 mg PO DAILY 12/15/18 10/18/19 1 Day Ago History ~02/08/19 81 mg LISINOpril [Prinivil] 40 mg PO DAILY tab 02/13/19 10/18/19 Unknown Rx Polyethylene Glycol 3350 [Miralax] 17 gm PO BID powder, packet 02/13/19 10/18/19 Unknown Rx Trazodone [Desyrel] 25 mg PO QHS #0 02/13/19 10/18/19 1 Day Ago Rx ~02/08/19 50 mg Ferrous Sulfate 325 mg PO DAILY tab 10/22/19 Unknown Rx Hydrocodone/APAP 7.5 mg/325 mg 0.5 ea PO Q6H PRN #25 tab 10/22/19 Unknown Rx [[place]-7.5] - History of Present Illness-Cardiac Nature of Presenting Problem: [place] patient with a h/o Alzheimer,s dz, ESRD on HD brought in by EMS today. Patient was was said to have dropped his BP to < 90 systolic today and dialuysis was disciontinue. He was boloused with fluids and EMS took him back to the [place]. Per EMS, patient had 1 episode of emesis,complained of abdominal pain and became tarchypneic with decreased oxygen saturation, diaphoretic. he was no longer responding to questions as was the case predialysis per EMS hence ER visit. He was seen on non rebreather and answered to few questions Location: reports: other (hypotension, sob, abdominal pain) Quality of Pain: reports: other (unsure) Onset/Duration: other (today) Context/Activities at Onset: reports: none Modifying Factors: improves with: nothing Associated Symptoms: reports: shortness of breath, vomiting Review of Systems - Adult - REVIEW OF SYSTEMS - ADULT ROS:: unobtainable per condition Constitutional: reports: see HPI Past History - Adult - PAST MEDICAL HISTORY-ADULT Review of Records: reports: Nursing Assessment Review, Medications Reviewed, Social history reviewed & non-contributory. 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) - PRIOR SURGERIES/PROCEDURES Surgical/Procedure History: reports: pacemaker, indwelling device (dialysis graft) - IMMUNIZATION STATUS Childhood Immunizations: See Nurse Assessment Flu Vaccine: See Nurse Assessment - FAMILY HISTORY Family History: reviewed, not pertinent - SOCIAL HISTORY Smoking: other (unable to obtain per pt condition) Substance Use: other (unable to obtain per pt condition) Physical Exam-General - PHYSICAL EXAM-ADULT Initial Vital Signs Reviewed: Yes - CONSTITUTIONAL General Appearance: lethargic - EYES Eyes: other (blind- corneal opacification noted more on the left eye) - HEAD, EARS, NOSE, MOUTH & THROAT HENMT: normocephalic/atraumatic - NECK Neck: supple - RESPIRATORY Respiratory: wheezing (b/l lungs) - CARDIOVASCULAR Cardiovascular: no edema - GASTROINTESTINAL (ABDOMEN) Abdominal Exam: tenderness (mild, right abdomen), hernia (periumbilical) - MUSCULOSKELETAL Extremity: no pedal edema - SKIN Integumentary: normal turgor - PSYCHIATRIC Psych/Mental Status: oriented x 3 (no but oriented to name only) Progress - PLAN OF CARE/RESULTS Progress/Plan/Lab Results: Vital Signs - 8 hr 11/12/19 16:58 Temperature 95.2 F L Pulse Rate 96 H Respiratory Rate 39 H Blood Pressure 98/51 O2 Sat by Pulse Oximetry 95 11/12/19 18:15 Influenza Screen - Final Nasopharyngeal Laboratory Results - last 24 hr 11/12/19 11/12/19 11/12/19 17:45 18:12 18:12 WBC RBC Hgb Hct MCV MCH MCHC RDW Std Deviation Plt Count MPV Immature Gran % (Auto) Neut % (Auto) Lymph % (Auto) [place] % (Auto) Eos % (Auto) Baso % (Auto) Immature Gran # (Auto) Neut # (Auto) Lymph # (Auto) [place] # (Auto) Eos # (Auto) Baso # (Auto) Specimen Type Sample Site pH pCO2 pO2 HCO3 Base Excess Oxyhemoglobin ABG O2 Sat (Calculated) ABG O2 Saturation ABG Carboxyhemoglobin ABG Methemoglobin Alex Test A-a O2 Difference Total Hemoglobin Lactate Liter Flow Blood Gas Modality FiO2 % Sodium 134 L Potassium 4.1 Chloride 92 L Carbon Dioxide 21 L Anion Gap 21 BUN 24 H Creatinine 3.4 H Estimated GFR/1.73 m2 21 BUN/Creatinine Ratio 7 Glucose 286 H POC Glucose 282 H Calculated Osmolality 283 Calcium 9.4 Total Bilirubin 0.59 AST 25 ALT 17 Alkaline Phosphatase 103 Creatine Kinase 91 Total Protein 7.5 Albumin 3.0 L Globulin 4.5 Albumin/Globulin Ratio 0.7 Plasma Lactate 5.5 H* 11/12/19 11/12/19 18:12 18:30 WBC 19.86 H RBC 3.30 L Hgb 10.0 L Hct 31.9 L MCV 96.7 MCH 30.3 MCHC 31.3 L RDW Std Deviation 16.5 H Plt Count 268 MPV 10.5 H Immature Gran % (Auto) 0.4 Neut % (Auto) 88.8 H Lymph % (Auto) 6.5 L [place] % (Auto) 3.7 Eos % (Auto) 0.4 Baso % (Auto) 0.2 Immature Gran # (Auto) 0.07 H Neut # (Auto) 17.67 H Lymph # (Auto) 1.29 [place] # (Auto) 0.73 H Eos # (Auto) 0.07 Baso # (Auto) 0.03 Specimen Type ARTERIAL Sample Site L RADIAL pH 7.42 pCO2 33 L pO2 223 H HCO3 23.0 Base Excess -2.5 Oxyhemoglobin 95.9 ABG O2 Sat (Calculated) 14.3 L ABG O2 Saturation 98.9 ABG Carboxyhemoglobin 1.80 ABG Methemoglobin 1.3 Alex Test YES A-a O2 Difference 449.0 Total Hemoglobin 10.2 L Lactate 3.70 H Liter Flow 15.0 Blood Gas Modality NRB FiO2 % 100.0 Sodium Potassium Chloride Carbon Dioxide Anion Gap BUN Creatinine Estimated GFR/1.73 m2 BUN/Creatinine Ratio Glucose POC Glucose Calculated Osmolality Calcium Total Bilirubin AST ALT Alkaline Phosphatase Creatine Kinase Total Protein Albumin Globulin Albumin/Globulin Ratio Plasma Lactate Orders Category Date Time Status Cardiac Monitoring NOW Care 11/12/19 17:09 Active IV Insertion NOW Care 11/12/19 17:09 Active NEWS Score >or=5:Order NEWS Bundle S.O. NOW Care 11/12/19 17:09 Active Notify Provider of NEWS Score NOW Care 11/12/19 17:09 Active CHEST-1 VIEW [RAD] Stat Exams 11/12/19 17:[address] ABDOMEN/PELVIS W/O CONTRAST [CT] Stat Exams 11/12/19 20:[address] HEAD W/O CONTRAST [CT] Stat Exams 11/12/19 17:27 Completed ABG [RESP] Routine Lab 11/12/19 18:30 Completed BLOOD CULTURE [BLDCUL] Stat Lab 11/12/19 18:12 Results CBC WITH DIFF [HEME] Stat Lab 11/12/19 18:12 Completed CK PROFILE [SP CHEM] Stat Lab 11/12/19 18:12 Completed COMPREHENSIVE METABOLIC PANEL [CHEM] Stat Lab 11/12/19 18:12 Completed INFLUENZA SCREEN A/B Stat Lab 11/12/19 18:15 Completed LACTATE, PLASMA [CHEM] Lab 11/12/19 20:21 Ordered LACTATE, PLASMA [CHEM] Lab 11/12/19 23:15 Uncollected LACTATE, PLASMA [CHEM] Q3H Lab 11/12/19 18:12 Completed PROTIME WITH INR [COAG] Stat Lab 11/12/19 18:20 Ordered PTT [COAG] Stat Lab 11/12/19 18:20 Ordered TROPONIN T HIGH SENSITIVITY Stat Lab 11/12/19 18:20 Ordered URINALYSIS W/POSS RFLX CULT [URINALYSIS] Stat Lab 11/12/19 17:09 Uncollected 0.9% Sodium Chloride Inj [Ns] 1,000 ml Med 11/12/19 19:42 Discontinued IV 999 mls/hr 0.9% Sodium Chloride Inj [Ns] 250 ml Med 11/12/19 17:19 Discontinued IV Wide Open mls/hr 0.9% Sodium Chloride Inj [Ns] 250 ml Med 11/12/19 17:37 Discontinued IV Wide Open mls/hr 0.9% Sodium Chloride Inj [Ns] 500 ml Med 11/12/19 19:29 Discontinued IV Wide Open mls/hr Albuterol 2.5MG/Ipratrop 0.5MG [Duoneb (A & A)] Med 11/12/19 17:18 Discontinued 3 ml INH NOW ONE Albuterol [Albuterol Neb] Med 11/12/19 18:17 Discontinued 2.5 mg INH NOW ONE Levophed 32 Microgm/ml Drip Med 11/12/19 21:30 Ordered Dextrose 5%-0.45% NaCl Inj [D5 09/17 Ns] 250 ml Norepinephrine [Levophed] 8 mg IV As Directed Methylprednisolone Sod Succ [Solu-Medrol] Med 11/12/19 17:18 Discontinued 80 mg IV NOW ONE Ondansetron [Zofran] Med 11/12/19 17:26 Discontinued 4 mg IV NOW ONE Piperacillin/Tazobactam [Zosyn] 3.375 gm Med 11/12/19 19:31 Discontinued 0.9% Sodium Chloride Inj [Ns] 50 ml IV NOW Vancomycin 1 gm/Ns Med 11/12/19 19:31 Discontinued 1 gm in 250 ml IV NOW Aerosol Treatments Routine Ot 11/12/19 17:18 Completed Aerosol Treatments Routine Ot 11/12/19 18:17 Completed Aerosol Treatments Stat Ot 11/12/19 17:18 Completed Aerosol Treatments Stat Ot 11/12/19 18:17 Completed O2 Per Protocol Stat Ot 11/12/19 17:09 Completed Result Diagrams: 11/12/19 18:12 11/12/19 18:12 - REASSESSMENT Reassessment #1 Time Reassessed: 17:38 Status: worsening (called to see pt with decreased BP. Sbp now 72. Patient on non rebreather, awake. Will incr IVF from 250mls to 500mls bolous and re assess) Reassessment #2 Time Reassessed: 19:46 Status: worsening (Patient,s sbp still in the 70,s . Patient is awake. Nurse now informed me that patient has not gotten any IV fluid here as they have difficulty getting a line on him. He had received 1 liter of fluid in dialysis. Will d/c previous IV fluid order and bolous him with 1 liter. He has a lactate of 5.5 and a high wbc. he will be started on vanco + zosyn as well. Official cxr and CT head, abd are pending. No more wheezing on ausculationDiscussed management with family at bed side. Also informed them of the need for admission.) Reassessment #3 Time Reassessed: 21:25 Status: unchanged (Patient is awake, respond to name, still on non rebreather and continues to be hypotensive inspite of IV fluid. He now has a left EJ, will order pressor. Patient is hypothermic , with cold extremities. To be warmed by external device- nurse informed Discussed ICU admission Dr Tolliver) - EKG 1 Time of EKG reading by physician:: 17:40 EKG Interpretation (*Must complete 3 of following elements*): Abnormal Rate: 97 Rhythm: ventricular - paced rhythm QRS: other (wide QRS) - CONSULTS/PCP/HOSPITALIST Notification #1 *Consult/PCP/Hospitalist*: Dr. Tolliver Time Discussed: 21:23 Consult Disposition: Admit (Accepted ICU admission) Departure - Departure Date of Disposition Decision: 11/12/19 Time of Disposition Decision: 21:21 DIAGNOSIS: SOB (shortness of breath), Lethargy, Sepsis associated hypotension, ESRD (end stage renal disease) Disposition: ADMITTED INPATIENT 09 Certified Medical Emergency: Emergent Condition: Critical Referrals and Follow-Ups: Dionicio Mckeon III, MD [Primary Care Provider] - - Critical Care Note This patient required my direct & personal management of CC.: Yes Total Time (mins): 39 Critical Care Statement: This patient required my direct personal management to treat or rule out processes, the absence of which, could potentiallly result in sudden, clinically significant life or limb threatening deterioration. Attestation - Physician/ DENICE Attestation Patient care was provided by Advanced Practice Provider:: No The physician spent face to face time with patient:: Yes Advanced Practice Provider documentation review:: Supervising physician onsite and consulted in the evaluation and care of this patient. The physician did have a face to face encounter with the patient.
[2019-11-12] MEDS ORDERED: DUONEB (A & A) INH ONE (17:18)
[2019-11-12] MEDS ORDERED: SOLU-MEDROL IV ONE (17:18)
[2019-11-12] MEDS ORDERED: NS 250 ML IV ONE ×2 (17:19→17:37)
[2019-11-12] MEDS ORDERED: ZOFRAN IV ONE (17:26)
[2019-11-12] MEDS ORDERED: ALBUTEROL NEB INH ONE (18:17)
[2019-11-12 18:42] LABS: ALLEN TEST YES; BE -2.5 mmoll (-3.0-3.0); BLOOD TYPE ARTERIAL; METHB 1.3 % (0.0-1.5); O2(CT) 14.3 mL/dL (15.0-23.0); O2HB 95.9 % (95.0-99.0); PCO2(98.6) 33 mmHg (35-45); PO2(98.6) 223 mmHg (60-100); SAMPLE BLOOD; SAO2 98.9 % (95.0-100.0); THB 10.2 g/dL (11.5-17.4); pH(98.6) 7.42 (7.35-7.45)
[2019-11-12 18:43] LABS: MODALITY NRB
[2019-11-12 18:54] LABS: ALB/GLOB RATIO 0.7; CALCIUM 9.4 mg/dL (8.8-10.2); CREATININE 3.4 mg/dL (0.7-1.2); POTASSIUM 4.1 mmol/L (3.5-5.1); TOTAL BILIRUBIN 0.59 mg/dL (0.20-1.00); TOTAL PROTEIN 7.5 g/dL (6.3-8.3)
[2019-11-12 19:03] LABS: BASO# 0.03 X1000 (0.0-0.2); BASO% 0.2 % (0.0-0.8); EOS# 0.07 X1000 (0.0-0.7); EOS% 0.4 % (0.0-10.0); HEMATOCRIT 31.9 % (42.0-52.0); IMM GRAN# 0.07 X1000 (0.0-0.04); IMM GRAN% 0.4 % (0.0-0.5); LYMPH# 1.29 X1000 (1.2-3.4); LYMPH% 6.5 % (20.5-51.1); MCH 30.3 PG (27-31); MCHC 31.3 g/dL (33-37); MCV 96.7 FL (81-99); MONO# 0.73 X1000 (0.11-0.59); MONO% 3.7 % (1.7-9.3); MPV 10.5 FL (7.4-10.4); NEUT# 17.67 X1000 (1.4-6.5); NEUT% 88.8 % (42.2-75.2); PLT 268 X1000 (130-400); RDW 16.5 % (11.5-14.5); WBC 19.86 X1000 (4.8-10.8)
[2019-11-12] MEDS ORDERED: NS 500 ML IV ONE (19:29)
[2019-11-12] MEDS ORDERED: ZOSYN 3.375 GM in NS 50 ML IV ONE (19:31)
[2019-11-12] MEDS ORDERED: VANCOMYCIN 1 GM/NS 1 GM/250 ML IVPB IV ONE (19:31)
[2019-11-12] MEDS ORDERED: NS 1,000 ML IV ONE (19:42)
--- NOTE | 2019-11-12 19:46 | Diag Imaging Result Doc PS360 ---
EXAM: CHEST-1 VIEW INDICATION: SOB TECHNIQUE: One view COMPARISON: 10/18/2019 FINDINGS: Inspiration is suboptimal. There is stable elevation of the left hemidiaphragm. There is minimal subsegmental atelectasis at the left lung base. The lungs appear to be grossly clear, otherwise. There is no discrete pleural fluid collection or pneumothorax. The cardiomediastinal silhouette and central vasculature are grossly unremarkable. IMPRESSION: Low lung volumes and mild left basilar atelectasis. Otherwise, no definite acute pathology by plain radiograph. Electronically signed by Dionicio Moseley 11/12/2019 7:43 PM
--- NOTE | 2019-11-12 20:54 | Diag Imaging Result Doc PS360 ---
EXAM: CT ABDOMEN/PELVIS W/O CONTRAST INDICATION: abdominal pain, hypotension TECHNIQUE: This exam was performed using automated exposure control, adjustment of mA or kV according to patient size, and/or use of iterative reconstruction technique. COMPARISON: 12/16/2017 FINDINGS: There is stable marked elevation of the left hemidiaphragm. There is subsegmental atelectasis at both lung bases posteriorly. Mild superimposed infiltrate is possible as well. There has been a prior cholecystectomy. The liver, spleen, pancreas, and adrenal glands are grossly unremarkable as imaged with unenhanced CT. There are several vascular calcifications at the right renal hilum and there are probably a couple of nonobstructing intrarenal stones on the right. There is a small nonobstructing intrarenal stone at the inferior aspect of the left kidney. There is mild dilation of the left renal collecting system and left hydroureter. However, no obstructing stones are identified. This was not present on the previous study, however. The urinary bladder wall is mildly thickened. In part, this is from incomplete distention. However, there may also be a component of cystitis. Please correlate clinically. There is a very large amount of stool seen in the colon indicating severe constipation and there is a prominent rectal fecal impaction. The diameter of the impacted rectum measures up to 8.7 cm. There is gaseous distention with air-fluid levels in the ascending and transverse colon related to the severe constipation. There is no evidence of small bowel obstruction. There are several fluid-filled loops of small bowel that are mildly prominent that are probably due to the severe constipation. The gastric fundus is mildly distended and full of debris. There is fluid in the distal esophagus indicating reflux. There is stable bilateral L5 spondylolysis. IMPRESSION: 1.Severe constipation with a large rectal fecal impaction and associated distention of the ascending and transverse colon and a few mildly prominent loops of small bowel. 2.Fluid distended esophagus suggesting reflux. 3.Thickened urinary bladder wall. Correlate clinically to exclude cystitis. 4.Left hydroureter and mild left hydronephrosis that was not present on the previous study. However, no obstructing stone can be identified. 5.Dependent atelectasis at both lung bases. Superimposed mild infiltrate is also possible. Electronically signed by Dionicio Moseley 11/12/2019 8:52 PM
--- NOTE | 2019-11-12 20:54 | Diag Imaging Result Doc PS360 ---
EXAM: CT HEAD W/O CONTRAST INDICATION: lethargy TECHNIQUE: This exam was performed using automated exposure control, adjustment of mA or kV according to patient size, and/or use of iterative reconstruction technique. COMPARISON: 02/10/2019 FINDINGS: There is evidence of advanced white matter microangiopathy, stable. There are several stable chronic lacunar infarcts involving and surrounding the deep deleon matter bilaterally. There is no definite acute infarct given the limited sensitivity of CT versus MRI. There is no discrete intracranial mass, mass effect, or intracranial hemorrhage. The surrounding soft tissues and bony structures are essentially unremarkable. IMPRESSION: Stable advanced chronic changes as described. No evidence of acute intracranial pathology by CT. Electronically signed by Dionicio Moseley 11/12/2019 8:51 PM
[2019-11-12] MEDS ORDERED: VANCOMYCIN 1 GM/NS 1 GM/250 ML IVPB ONE (21:40)
[2019-11-12] MEDS ORDERED: VANCOMYCIN IV PER PHARMACY MISC SCH ×2 (21:45→23:51)
[2019-11-12] MEDS: LEVOPHED 8 MG in D5 1/2 NS 250 ML IV SCH (21:50)
[2019-11-12 22:10] LABS: INR 1.27; PROTIME 16.1 Seconds (11.0-16.0)
[2019-11-12 22:11] LABS: PTT 36.2 Seconds (22.3-41.8)
--- NOTE | 2019-11-12 22:40 | HISTORY AND PHYSICAL ---
PRIMARY CARE PHYSICIANS: At [facility]. CHIEF COMPLAINT: Altered mental status. HISTORY OF PRESENTING ILLNESS: An 89-year-old elderly male with a history of end-stage renal disease, hypertension, diabetes mellitus type 2, dementia, and who is legally blind, was at dialysis earlier today when his blood pressure decreased to less than 90. He was given IV fluid bolus and sent back to the halfway. While he was there, he had episodes of emesis and complained of abdominal discomfort. He became tachycardic and tachypneic and his O2 saturation decreased. He was brought to the emergency department. He was confused and altered, he was only answering a few questions and most of the history was obtained from other family members. As per family, they got a call from the halfway that he was not feeling well and was sent to the ED. PAST MEDICAL HISTORY: Includes end-stage renal disease, hypertension, diabetes mellitus type 2, dementia, coronary disease, blindness, BPH. PAST SURGICAL HISTORY: Right tibia nailing, right great toe amputation, bladder surgery, cholecystectomy, pacemaker, right upper extremity fistula. ALLERGIES: No known drug allergies. CURRENT MEDICATIONS: Amlodipine 10 mg p.o. at bedtime, aspirin 81 mg p.o. daily, ferrous sulfate 325 mg p.o. daily, [place] 7.5 mg half tablet p.o. q.6 hours, lisinopril 40 mg p.o. daily, simvastatin 10 mg p.o. at bedtime, Flomax 0.4 mg p.o. at bedtime, trazodone 25 mg p.o. at bedtime. SOCIAL HISTORY: No history of smoking. History of alcohol use in the past. No history of illicit drug use. He has lives at [facility] and [facility]. FAMILY HISTORY: No history of coronary artery disease. REVIEW OF SYSTEMS: Limited due to patient being altered. PHYSICAL EXAMINATION: GENERAL: The patient is moderately altered and only answers a few questions. VITAL SIGNS: Temperature 95.2 degrees, pulse 96, respirations 39, blood pressure 98/51. HEENT: Atraumatic, normocephalic. NECK: No masses. CHEST: Bibasilar rales. CARDIOVASCULAR: Regular rate and rhythm. ABDOMEN: Soft. Positive bowel sounds. EXTREMITIES: Trace edema. NEUROLOGIC: He is awake and arousable. GENITOURINARY: No bladder distention. SKIN: Warm. LABORATORIES AND STUDIES: WBC 19.86, hemoglobin 10.0, hematocrit 31.9, platelets 268,000. Sodium 134, potassium 4.1, chloride 92, CO2 is 21, BUN is 24, creatinine is 3.4. Glucose is 286. Plasma lactate is 5.5. Chest x-ray shows mild left basilar atelectasis. Abdominal CT shows severe constipation with large rectal fecal impaction and also superimposed mild infiltrate noted. ASSESSMENT: This is an 89-year-old elderly male with a history of end-stage renal disease, hypertension, diabetes mellitus type 2, dementia and coronary artery disease who was at dialysis earlier today and while he was receiving dialysis, his blood pressure dropped. He was given IV fluids and sent back to halfway. While he was at the halfway, he had emesis and became altered and tachycardic. He was brought to the emergency department and it was suspected he was septic. Subsequently, he will require admission for further management assessment. ASSESSMENT: 1. Altered mental status, multifactorial. 2. Probable pneumonia. 3. Suspected sepsis. 4. End-stage renal disease. 5. Diabetes mellitus type 2. 6. Abdominal pain with constipation and fecal impaction. PLAN: 1. We will admit patient to ICU. 2. Continue with neuro checks. 3. We will check blood cultures. Start patient on IV antibiotics. 4. We will continue patient on a pressor. 5. We will consult Nephrology for dialysis. 6. We will monitor blood glucose and put patient on sliding scale insulin regimen. 7. Will start an enema. 8. We will put patient on DVT prophylaxis with SCDs and heparin. 9. The patient's condition is guarded. 10. We will continue to follow, reassess, make further recommendation based on the patient's clinical course. cc: Ezekiel Tolliver MD
[2019-11-12] MEDS ORDERED: ZOFRAN IV PRN (23:51)
[2019-11-13] MEDS ORDERED: VANCOMYCIN 1 GM/NS 1 GM/250 ML IVPB IV ONE ×2 (01:00→18:00)
[2019-11-13 02:24] LABS: BASO# 0.02 X1000 (0.0-0.2); BASO% 0.1 % (0.0-0.8); EOS# 0.02 X1000 (0.0-0.7); EOS% 0.1 % (0.0-10.0); HEMATOCRIT 35.8 % (42.0-52.0); HEMOGLOBIN 11.1 g/dL (14.0-18.0); IMM GRAN% 0.4 % (0.0-0.5); LYMPH# 0.38 X1000 (1.2-3.4); LYMPH% 1.5 % (20.5-51.1); MCH 29.8 PG (27-31); MCV 96.2 FL (81-99); MONO# 0.48 X1000 (0.11-0.59); MONO% 1.9 % (1.7-9.3); MPV 10.3 FL (7.4-10.4); NEUT# 24.72 X1000 (1.4-6.5); PLT 254 X1000 (130-400); RBC 3.72 XMIL (4.7-6.1); RDW 16.6 % (11.5-14.5); WBC 25.72 X1000 (4.8-10.8)
[2019-11-13 02:41] LABS: CALCIUM 9.5 mg/dL (8.8-10.2); CREATININE 3.6 mg/dL (0.7-1.2); POTASSIUM 4.9 mmol/L (3.5-5.1)
[2019-11-13] MEDS ORDERED: ZOSYN 2.25 GM in NS 50 ML IV SCH (03:00)
[2019-11-13] MEDS ORDERED: HUMULIN R SUBQ ONE (03:39)
[2019-11-13 04:17] LABS: INR 1.19; PROTIME 15.2 Seconds (11.0-16.0)
[2019-11-13 04:53] LABS: ALLEN TEST YES; BE -13.3 mmoll (-3.0-3.0); BLOOD TYPE ARTERIAL; HCO3-(ACT) 14.3 mmoll (20.0-26.0); METHB 2.3 % (0.0-1.5); O2(CT) 12.5 mL/dL (15.0-23.0); PCO2(98.6) 41 mmHg (35-45); PO2(98.6) 59 mmHg (60-100); SAMPLE BLOOD; SAO2 88.6 % (95.0-100.0); THB 10.4 g/dL (11.5-17.4)
[2019-11-13 04:54] LABS: MODALITY BI PAP; pH(98.6) 7.16 (7.35-7.45)
[2019-11-13] MEDS: LEVOPHED 8 MG in D5 1/2 NS 250 ML IV SCH ×5 (05:00→23:49)
[2019-11-13] MEDS ORDERED: SODIUM BICARBONATE 8.4% IV PUSH ONE (05:08)
[2019-11-13] MEDS ORDERED: ZEMURON IV ONE ×2 (05:20→05:39)
[2019-11-13] MEDS ORDERED: AMIDATE IV ONE (05:38)
[2019-11-13] MEDS: HUMULIN R SUBQ SCH ×5 (06:33→21:08)
--- NOTE | 2019-11-13 07:23 | Diag Imaging Result Doc PS360 ---
EXAM: CHEST-PORTABLE INDICATION: post intubation TECHNIQUE: One view COMPARISON: 11/12/2019 FINDINGS: There is a newly placed ET tube. The tip projects over the trachea just above the hayden at about the T5 level. Subsegmental atelectasis at the left lung base appears to have improved. No new consolidation is identified. Cardiac silhouette is stable. IMPRESSION: Interval intubation as described and improvement in the mild left basilar atelectasis. Electronically signed by Dionicio Moseley 11/13/2019 7:21 AM
--- NOTE | 2019-11-13 07:38 | EKG Report ---
Test Performed on : 11/12/2019 5:34:02 PM Test Reason : ED. NO EKG ORDER FOR MUSE Blood Pressure : / mmHG Vent. Rate : 097 BPM Atrial Rate : 120 BPM P-R Int : 000 ms QRS Dur : 174 ms QT Int : 420 ms P-R-T Axes : 000 -19 112 degrees QTc Int : 533 ms Ventricular-paced rhythm Abnormal ECG When compared with ECG of 19-OCT-2019 02:50, Vent. rate has increased BY 20 BPM Unconfirmed Result
[2019-11-13] MEDS ORDERED: NS 250 ML ONE (07:44)
[2019-11-13] MEDS ORDERED: VANCOMYCIN 1 GM/NS 1 GM/250 ML IVPB IV SCH (08:15)
[2019-11-13] MEDS ORDERED: NS 2,000 ML MISC PRN (08:25)
[2019-11-13 08:46] LABS: ALLEN TEST YES; BE -8.6 mmoll (-3.0-3.0); BLOOD TYPE ARTERIAL; HCO3-(ACT) 18.1 mmoll (20.0-26.0); METHB 2.5 % (0.0-1.5); O2(CT) 14.4 mL/dL (15.0-23.0); O2HB 92.6 % (95.0-99.0); PCO2(98.6) 32 mmHg (35-45); PO2(98.6) 84 mmHg (60-100); SAMPLE BLOOD; SAO2 96.2 % (95.0-100.0); SRATE 14 BPM; TVOL 500 mL; pH(98.6) 7.32 (7.35-7.45)
[2019-11-13 08:49] LABS: MODALITY VENTILATOR
[2019-11-13] MEDS ORDERED: ASPIRIN PO SCH (09:00)
[2019-11-13 09:50] LABS: BASO# 0.02 X1000 (0.0-0.2); BASO% 0.1 % (0.0-0.8); HEMATOCRIT 32.8 % (42.0-52.0); HEMOGLOBIN 10.4 g/dL (14.0-18.0); IMM GRAN# 0.18 X1000 (0.0-0.04); IMM GRAN% 0.6 % (0.0-0.5); MCH 30.2 PG (27-31); MCHC 31.7 g/dL (33-37); MCV 95.3 FL (81-99); MONO# 0.96 X1000 (0.11-0.59); MONO% 3.2 % (1.7-9.3); MPV 10.9 FL (7.4-10.4); NEUT# 28.56 X1000 (1.4-6.5); NEUT% 94.1 % (42.2-75.2); PLT 330 X1000 (130-400); RBC 3.44 XMIL (4.7-6.1); RDW 16.7 % (11.5-14.5); WBC 30.32 X1000 (4.8-10.8)
[2019-11-13 10:23] LABS: ALB/GLOB RATIO 0.8; ALBUMIN 2.8 g/dL (3.5-5.0); CALCIUM 9.1 mg/dL (8.8-10.2); CREATININE 4.3 mg/dL (0.7-1.2); MAGNESIUM 2.6 mg/dL (1.5-2.7); POTASSIUM 5.7 mmol/L (3.5-5.1); TOTAL BILIRUBIN 0.61 mg/dL (0.20-1.00); TOTAL PROTEIN 6.5 g/dL (6.3-8.3)
[2019-11-13 10:36] LABS: FREE T4 1.05 ng/dL (0.93-1.70)
[2019-11-13 10:41] LABS: TSH 6.55 uIUmL (0.27-4.20)
[2019-11-13 10:53] LABS: BANDS 26 % (0-1); LYMPHS 2 % (21-51); MONO 2 % (1-9); SEGS 64 % (42-75)
[2019-11-13 10:54] LABS: ANISOCYTOSIS 1+; HYPOCHROM 1+
[2019-11-13 10:55] LABS: LARGE PLATELETS OCCASIONAL
[2019-11-13] MEDS: ZOSYN 2.25 GM in NS 50 ML IV SCH ×2 (13:13→21:10)
--- NOTE | 2019-11-13 14:25 | PROGRESS NOTE ---
DATE: 11/13/2019 SUBJECTIVE: Mr. Anna was admitted. He is followed by Dr. Dionicio Mckeon at [facility]. An 89-year-old elderly male, history of end-stage renal disease, hypertension, diabetes mellitus type 2, dementia, legally blind, was at dialysis earlier. Blood pressure decreased to the 90s, given IV fluids and [facility] While he was there, had episode of emesis and abdominal discomfort, tachycardia, and O2 saturation decreased. Brought into the emergency room. He was confused and altered, answering a few questions. Most of the history was obtained from family members. PAST MEDICAL HISTORY: Includes end-stage renal disease, hypertension, diabetes mellitus type 2, dementia, coronary artery disease, blindness, and benign prostatic hypertrophy. PAST SURGICAL HISTORY: Right tibia nailing, right great toe amputation, bladder surgery, cholecystectomy, pacemaker, right upper extremity fistula. Admitted with altered mental status, probable pneumonia suspected sepsis, end-stage renal disease, underlying diabetes mellitus type 2. He had abdominal pain, constipation and fecal impaction. OBJECTIVE: Vital signs: Today, T-max was 100.2 degrees, pulse 120, respirations 22, blood pressure 87/53. HEENT: Pupils are equal and round. Lungs: clear in all lung booth. Cardiovascular: Regular rhythm and rate without murmur or S3. Abdomen: Soft. Skin: Warm and dry. ASSESSMENT AND PLAN: Continue present IV and antibiotics and his pressors. Nephrology involved. He does have a history of alcohol in the past and underlying end-stage renal disease. Concerned about sepsis. REVIEW OF HIS ORDERS: He is on vancomycin 1 g after dialysis, already received 1 g. He got 1 dose of methylprednisone 80 mg and Vancomycin 1 gram loading dose and then after dialysis, he is getting Zosyn 3.375 g, he got 1 dose in the emergency room, and he gets 2.25 g IV q.8 hours. [place] [id number] [place] he came, is 30,000 today, probably from steroids. cc: Alex Benitez MD
[2019-11-13] MEDS: NEO-SYNEPHRINE 50 MG in NS 250 ML IV SCH ×4 (15:02→23:50)
--- NOTE | 2019-11-13 19:40 | Diag Imaging Result Doc PS360 ---
EXAM: CHEST-PORTABLE HISTORY: central line placement TECHNIQUE: Single view COMPARISON: 5:32 AM FINDINGS: A right jugular line has been placed since the prior exam. This overlies the right atrium. No pneumothorax. No other interval change. IMPRESSION: No postprocedural pneumothorax. Electronically signed by Quinton Muñoz 11/13/2019 7:38 PM
[2019-11-13] MEDS: PITRESSIN 40 UNIT in NS 100 ML IV SCH (20:11)
--- NOTE | 2019-11-13 20:31 | NEPHROLOGY CONSULTATION ---
DATE: 11/13/2019 REASON FOR CONSULTATION: Assistance with management ESRD. HISTORY OF PRESENT ILLNESS: Mr. Anna is an 89-year-old, man who has advanced dementia and blindness and ESRD. He had his routine dialysis yesterday during which time he had transient hypotension that responded well to fluids. After he returned to the senior living, he had altered sensorium and was sent directly to the emergency room. His initial evaluation found blood pressure 98/51 with a heart rate of 96, respiration of 39, and temperature 95.2 degrees. His next measured temperature was 101 degrees and his respiratory status declined rapidly such that he required mechanical ventilation by this morning. He was diagnosed with sepsis and treated appropriately with IV fluid resuscitation and broad-spectrum antibiotics including vancomycin and Zosyn. His evaluation further disclosed left basilar atelectasis. CT of the abdomen with left- sided hydroureter and hydronephrosis as well as severe constipation with distention of the colon with air and stool. This morning he is sedated and unable to interact. His family is at the bedside. They stated he was well the day prior to admission. PAST MEDICAL HISTORY: As above. He also has hyperlipidemia, hypertension. HOME MEDICATIONS: Include tamsulosin, amlodipine, simvastatin, aspirin, MiraLAX, lisinopril, trazodone, iron, hydrocodone. ALLERGIES: None. Social, family, review of systems otherwise noncontributory. PHYSICAL EXAMINATION: Vital Signs: Blood pressure 84/52 on Levophed, heart rate 99, respirations 22, T-max 100.2 degrees. General: Sedated on the ventilator. Eyes are closed. Skin: Warm but diaphoretic. No rashes. Pupils are equal. Oropharynx not examined. Neck: Neck veins are not visible. Heart: Regular and tachycardic. No gallops. Lungs: Equal, clear. Abdomen: Soft, distended. Bowel sounds are present. Extremities: With no edema. There dry ulcers on the left foot. IMPRESSION: 1. Sepsis. Agree with your treatment. He would not appear to be a surgical candidate. 2. Left foot ulcers. These occurred related to immobilizer boot. He had recent repair of a tibia/fibula fracture left ankle. 3. Chronic kidney disease 5D. We will evaluate his status for dialysis in the morning. He does have a significant metabolic acidosis but lactate level is elevated. cc: Gamal South MD MTDD
--- NOTE | 2019-11-13 21:33 | OPERATIVE NOTE ---
PROCEDURE DATE: 11/13/2019 PREOPERATIVE DIAGNOSES: 1. Respiratory failure. 2. Endstage renal disease. 3. Requirement for intravenous pressors to maintain blood pressure. 4. Need for intravenous access. POSTOPERATIVE DIAGNOSES: 1. Respiratory failure. 2. Endstage renal disease. 3. Requirement for intravenous pressors to maintain blood pressure. 4. Need for intravenous access. PRINCIPAL PROCEDURE: Right internal jugular central venous line using ultrasound guidance. SURGEON: Zahida Saldivar MD ANESTHESIA: Local. ESTIMATED BLOOD LOSS: 10 mL DRAINS: None. INDICATIONS: Mr. To Anna is an 89-year-old black male in our ICU, ventilated. He has endstage renal disease. He is on pressors and needs IV access, and I was asked to place a central venous line. PROCEDURE: He was placed supine in his bed, ICU 20. His right neck, shoulder and anterior chest were prepped and draped within a sterile field. Using ultrasound guidance, I used an 18-gauge needle to access the right internal jugular vein. Through the needle I placed a guidewire. The needle was removed. Over the guidewire I placed a dilator, and then I used an antibiotic coated triple-lumen central venous line over the guidewire into the superior vena cava. The guidewire was removed. All 3 ports were functioning well and were flushed with saline. The catheter was secured to the skin with a 2-0 silk stitch. Dressings were applied. He tolerated the procedure well. We will get a postprocedure chest x-ray, and we will allow these nurses to use it for IV access. cc: Zahida Saldivar MD
[2019-11-14] MEDS ORDERED: NS 500 ML ONE (03:12)
[2019-11-14] MEDS ORDERED: DOPAMINE 800 MG/D5W 800 MG/500 ML IV.SOLN IV SCH (03:15)
[2019-11-14 03:24] LABS: ALLEN TEST YES; BE -28.3 mmoll (-3.0-3.0); BLOOD TYPE ARTERIAL; HCO3-(ACT) 2.8 mmoll (20.0-26.0); O2(CT) 10.5 mL/dL (15.0-23.0); PO2(98.6) 123 mmHg (60-100); SAMPLE BLOOD; SAO2 94.2 % (95.0-100.0); THB 8.1 g/dL (11.5-17.4)
[2019-11-14 03:26] LABS: pH(98.6) 6.87 (7.35-7.45)
[2019-11-14 03:27] LABS: METHB 4.7 % (0.0-1.5); MODALITY AMBU BAG; O2HB 89.8 % (95.0-99.0); PCO2(98.6) 17 mmHg (35-45)
[2019-11-14] MEDS ORDERED: SODIUM BICARBONATE 8.4% IV PUSH PRN (03:47)
[2019-11-14] MEDS ORDERED: SODIUM BICARBONATE 8.4% ONE (03:56)
[2019-11-14] MEDS ORDERED: SODIUM BICARBONATE 8.4% 150 MEQ in D5W 1,000 ML IV SCH (04:00)
[2019-11-14 04:50] LABS: ALLEN TEST YES; BE -22.7 mmoll (-3.0-3.0); BLOOD TYPE ARTERIAL; METHB 2.4 % (0.0-1.5); O2(CT) 9.9 mL/dL (15.0-23.0); PCO2(98.6) 40 mmHg (35-45); PO2(98.6) 141 mmHg (60-100); SAMPLE BLOOD; SAO2 97.6 % (95.0-100.0); SRATE 14 BPM; THB 7.2 g/dL (11.5-17.4); TVOL 500 mL
[2019-11-14 04:53] LABS: pH(98.6) 6.92 (7.35-7.45)
[2019-11-14 04:54] LABS: HCO3-(ACT) 7.2 mmoll (20.0-26.0); MODALITY VENTILATOR
--- NOTE | 2019-11-14 05:53 | Diag Imaging Result Doc PS360 ---
EXAM: CHEST-PORTABLE HISTORY: MD order TECHNIQUE: Single view COMPARISON: 11/13/2019 FINDINGS: No change in the right jugular line. Endotracheal tube in good position. No cardiomegaly. The left hemidiaphragm is elevated. Left-sided pacemaker. No pneumothorax. Triangular-shaped increased density in the left suprahilar area is similar to the prior exam. IMPRESSION: No interval improvement Electronically signed by Quinton Muñoz 11/14/2019 5:51 AM
--- NOTE | 2019-11-14 05:57 | Diag Imaging Result Doc PS360 ---
EXAM: KUB ABDOMEN HISTORY: MD orders TECHNIQUE: Two views COMPARISON: 12/20/2018 FINDINGS: There is a large amount of stool throughout the colon. No organomegaly. IMPRESSION: Severe constipation with fecal impaction Electronically signed by Quinton Muñoz 11/14/2019 5:54 AM
[2019-11-14 05:58] VITALS: BP 88/62
[2019-11-14] MEDS: NEO-SYNEPHRINE 50 MG in NS 250 ML IV SCH (06:00)
[2019-11-14] MEDS: PITRESSIN 40 UNIT in NS 100 ML IV SCH (06:46)
[2019-11-14] MEDS: ZOSYN 2.25 GM in NS 50 ML IV SCH (07:20)
[2019-11-14] MEDS: HUMULIN R SUBQ SCH (07:21)
--- NOTE | 2019-11-14 07:53 | DISCHARGE SUMMARY ---
ADMISSION DATE: 11/12/2019 DISCHARGE DATE: 11/14/2019 SUMMARY: PRIMARY CARE PHYSICIAN: Dr. Mckeon. Primary care was at the [facility]. BRIEF HISTORY OF PRESENT ILLNESS: Presented with altered mental status on 11/12/2019. He is an 89-year-old black male with a history of end-stage renal disease, hypertension, diabetes mellitus type 2, dementia, legally blind, was in dialysis earlier today and blood pressure decreased down below 90s, his systolic pressure. He was given some IV fluids and sent back to the [facility]. While he was there, he had an episode of emesis and complained of abdominal discomfort, became tachycardic and his O2 saturation decreased, brought to the emergency room. He was confused and altered. PAST MEDICAL HISTORY: 1. Includes end-stage renal disease, on hemodialysis. 2. Hypertension. 3. Diabetes mellitus type 2. 4. Dementia. 5. Coronary artery disease. 6. Blindness. 7. Benign prostatic hypertrophy. PAST SURGICAL HISTORY: Right tibial nailing, right great toe amputation, bladder surgery, cholecystectomy, pacemaker, right upper extremity fistula. HOSPITAL COURSE: On evaluation in the emergency room, appeared concerned he was septic, probable pneumonia. He was put into intensive care. He required pressors starting with Levophed. Continued to give him fluid. He was intubated but blood pressures continued to decline. His follow-up chest x-ray, no interval improvement. He had a right jugular line, endotracheal tube was in good position, no cardiomegaly, left-sided pacemaker, increased density in the left sub hilar areas. We ended up having him on 3 vasopressors we started and he had an abdominal x-ray done this morning with severe constipation and fecal impaction and so I feel like he could have had an intra-abdominal process going on. Blood pressures continued to decline and his heart stopped and he was pronounced . This was at approximately 7 o'clock a.m. 11/14/2019. His son was at the bedside. cc: Alex Benitez MD
[2019-11-15 14:18] LABS: HEPATITIS PROFILE ACUTE SEE COMMENTS
== END 2019-11-14 07:00 | disposition expired | DRG 871 ==
LOC: SUPCPDRO → ED 16:38 → SUATTDRO 23:09 → ICU 23:09
PROVIDERS: ATTEND Emergency Medicine